=== PATIENT | male | born 1950 | race Caucasian/White ===

== ENCOUNTER 2019-01-03 14:36 | Inpatient (IN) | payer MEDICARE, OTHER ==
[~2019-01-03] VITALS: Ht 172.7 cm; Wt 67.3 kg
--- OUTSIDE RECORDS SUMMARY | 2019-01-03 14:39 | XMS REPORT | Clinical Summary ---
Author Author TETO Cardiff AviationCass[facility] Center[facility] Organization [facility] Address Unknown Phone Unavailable Care Team Providers Care Technician Helper Instrument Name Role Phone Pcp, No PCP Unavailable Allergies No Known Allergies Medications End Date Status Medication Sig Dispensed Refills Start Date Active sodium chloride 0.9%, NS, Inject 5 mLs 5 mL 0 injection intravenously 8 every 8 (eight) hours. 10/13/2019 Active aspirin 81 MG EC tablet Take 1 tablet 30 tablet 11 (81 mg total) 8 by mouth daily. 10/12/2019 Active senna (SENOKOT) 8.6 mg Take 1 tablet 30 tablet 30 tablet (8.6 mg 8 total) by mouth nightly. Active pantoprazole (PROTONIX) Take 1 tablet 30 tablet 0 40 MG tablet (40 mg total) 8 by mouth daily. 10/13/2019 Active multivitamin (THERAGRAN) Take 1 tablet 30 tablet 2 tablet by mouth 8 daily. Active apixaban (ELIQUIS) 5 mg Take 1 tablet 60 tablet 2 Tab tablet (5 mg total) 8 by mouth 2 (two) times daily. 10/13/2019 Active thiamine (VITAMIN B-1) 50 Take 1 tablet 30 tablet 2 MG tablet (50 mg total) 8 by mouth daily. 10/13/2019 Active furosemide (LASIX) 40 MG Take 1 tablet 30 tablet 2 tablet (40 mg total) 8 by mouth daily. 10/13/2019 Active digoxin (LANOXIN) 0.25 MG Take 1 tablet 30 tablet 2 tablet (250 mcg 8 total) by mouth daily. 10/12/2019 Active metoprolol (TOPROL-XL) 25 Take 0.5 15 tablet 2 MG 24 hr tablet tablets (12.5 8 mg total) by mouth nightly. 10/22/2018 docusate sodium (COLACE) Take 1 10 capsule 0 100 MG capsule capsule (100 8 mg total) by mouth 2 (two) times daily for 10 days. 10/16/2018 polyethylene glycol Take 17 g by 14 each 0 (GLYCOLAX) 17 gram packet mouth daily 8 for 3 days. 10/19/2018 benzonatate (TESSALON) Take 1 20 capsule 0 100 MG capsule capsule (100 8 mg total) by mouth 3 (three) times daily as needed for Cough for up to 7 days. Active Problems Problem Noted Date Coronary artery disease 10/02/2018 Acute on chronic systolic heart failure 10/02/2018 Chronic hepatitis C without hepatic coma 10/02/2018 Other cirrhosis of liver 10/02/2018 Encounters Care Team Description Date Type Specialty Ronak Flores AA 10/07/2018 Anesthesia Event Saranya Barbour MD IABP INSERTION MCR - IP PROC ONLY 10/05/2018 Surgery Ana Pearce, RN 10/05/2018 Documentation Transplant 10/04/2018 Orders Only General Internal Medicine Castro Kessler MD Ancy, MD Lou Santamaria Alireza, MD Zindani, Shireen, MD Shiekh Sroujieh, MD Abelino Braxton, MD Adarsh Neville, MD Marcelino Bennett, MD Honorio Portillo, Vincent Roldan MD Acute on chronic systolic heart failure (HCC); Chronic hepatitis C without hepatic coma (HCC); Coronary artery disease involving [place] coronary artery of [place] heart without angina pectoris; Other cirrhosis of liver (HCC); Typical atrial flutter (HCC); NSTEMI (non-ST elevated myocardial infarction) (HCC); VSD (ventricular septal defect); Abnormal liver enzymes; Atrial flutter with rapid ventricular response (HCC); Acute systolic congestive heart failure (HCC); Pleural effusion; History of alcohol use disorder; Immunity status testing; Screening for malignant neoplasm; Atrial flutter, unspecified type (HCC); Cardiogenic shock (HCC); Ischemic cardiomyopathy; PAD (peripheral artery disease) (HCC); Sinus tachycardia; Uncomplicated alcohol dependence (HCC); Lung nodule 10/02/2018 Hospital Cardiology - Encounter 10/12/2018 10/02/2018 Travel after 01/02/2018 Family History Medical History Relation Name Comments Heart disease Brother Heart disease Mother Heart disease Sister Relation Name Status Comments Brother Mother Sister Social History Date Tobacco Use Types Packs/Day Years Used Current Every Day Smoker 2 50 Smokeless Tobacco: Never Used Alcohol Use Drinks/Week oz/Week Comments Yes 6 Cans of 3.6 last drink 09/27/18 beer Sex Assigned at Date Recorded Not on file Industry Job Start Date Occupation Not on file Not on file Not on file Travel End Travel History Travel Start No recent travel history available. Last Filed Vital Signs Time Taken Vital Sign Reading 10/12/2018 11:02 AM BILLING AND INSURANCE COORDINATOR Blood Pressure 128/74 10/12/2018 11:02 AM BILLING AND INSURANCE COORDINATOR Pulse 128 10/12/2018 11:02 AM BILLING AND INSURANCE COORDINATOR Temperature 36.4 C (97.6 F) 10/12/2018 11:02 AM BILLING AND INSURANCE COORDINATOR Respiratory Rate 20 10/12/2018 11:02 AM BILLING AND INSURANCE COORDINATOR Oxygen Saturation 98% - Inhaled Oxygen - Concentration 10/12/2018 5:00 AM BILLING AND INSURANCE COORDINATOR Weight 60.7 kg (133 lb 12.8 oz) 10/02/2018 1:00 AM BILLING AND INSURANCE COORDINATOR Height 172.7 cm (5' 7.99") 10/12/2018 5:00 AM BILLING AND INSURANCE COORDINATOR Body Mass Index 20.35 Plan of Treatment Not on file Procedures Comments Procedure Name Priority Date/Time Associated Diagnosis REPORT OF PROCEDURE - 10/28/2018 ENDOSCOPY SCAN 3:50 PM BILLING AND INSURANCE COORDINATOR RHYTHM STRIP - SCAN 10/28/2018 3:50 PM BILLING AND INSURANCE COORDINATOR CARDIAC CATH REPORT - 10/28/2018 SCAN 3:50 PM BILLING AND INSURANCE COORDINATOR TRANSFUSION SERVICE 10/13/2018 REPORT - SCAN 6:00 PM BILLING AND INSURANCE COORDINATOR TYPE AND SCREEN, Routine 10/12/2018 AUTOMATED 5:37 AM BILLING AND INSURANCE COORDINATOR CBC (HEMOGRAM ONLY) Routine 10/12/2018 5:37 AM BILLING AND INSURANCE COORDINATOR ALPHA FETOPROTEIN (AFP), Routine 10/12/2018 TUMOR MARKER 5:37 AM BILLING AND INSURANCE COORDINATOR MR ABDOMEN WITH/WITHOUT Routine 10/12/2018 IV CONTRAST 4:20 AM BILLING AND INSURANCE COORDINATOR CBC (HEMOGRAM ONLY) Routine 10/11/2018 4:25 AM BILLING AND INSURANCE COORDINATOR PTH-RELATED PEPTIDE Routine 10/11/2018 4:25 AM BILLING AND INSURANCE COORDINATOR B-TYPE NATRIURETIC FACTOR Routine 10/11/2018 (BNP) 4:25 AM BILLING AND INSURANCE COORDINATOR HEPATIC FUNCTION PANEL Routine 10/10/2018 4:54 AM BILLING AND INSURANCE COORDINATOR MAGNESIUM Routine 10/10/2018 4:54 AM BILLING AND INSURANCE COORDINATOR BASIC METABOLIC PANEL (7) Routine 10/10/2018 4:54 AM BILLING AND INSURANCE COORDINATOR CBC (HEMOGRAM ONLY) Routine 10/10/2018 4:54 AM BILLING AND INSURANCE COORDINATOR DIGOXIN LEVEL Routine 10/10/2018 4:54 AM BILLING AND INSURANCE COORDINATOR XR CHEST 1 VIEW Routine 10/09/2018 PORTABLE/BEDSIDE 6:23 AM BILLING AND INSURANCE COORDINATOR MAGNESIUM Routine 10/09/2018 3:39 AM BILLING AND INSURANCE COORDINATOR BASIC METABOLIC PANEL (7) Routine 10/09/2018 3:39 AM BILLING AND INSURANCE COORDINATOR CBC (HEMOGRAM ONLY) Routine 10/09/2018 3:39 AM BILLING AND INSURANCE COORDINATOR ECG 12-LEAD Routine 10/09/2018 12:51 AM BILLING AND INSURANCE COORDINATOR ECG 12-LEAD Routine 10/09/2018 12:51 AM BILLING AND INSURANCE COORDINATOR Procedure Note - Interface, External Ris In - 10/09/2018 12:58 AM BILLING AND INSURANCE COORDINATOR Ventricula r Rate 119 BPM Atrial Rate 119 BPM P-R Interval 160 ms QRS Duration 122 ms Q-T Interval 372 ms QTC Calculatio n(Bazett) 523 ms P [place] 47 degrees R [place] 66 degrees T [place] 31 degrees Sinus tachycardi a Possible Left atrial enlargemen t Left ventricula r hypertroph y with QRS widening and repolariza tion abnormalit y Abnormal ECG When compared with ECG of 8 00:25, ST less depressed in Inferior leads ST less depressed in Anterior leads T wave inversion no longer evident in Lateral leads POCT-GLUCOSE METER Routine 10/09/2018 12:31 AM BILLING AND INSURANCE COORDINATOR ECG 12-LEAD Routine 10/09/2018 12:25 AM BILLING AND INSURANCE COORDINATOR Procedure Note - Interface, External Ris In - 10/09/2018 12:58 AM BILLING AND INSURANCE COORDINATOR Ventricula r Rate 148 BPM Atrial Rate 148 BPM P-R Interval 198 ms QRS Duration 94 ms Q-T Interval 298 ms QTC Calculatio n(Bazett) 467 ms P [place] 56 degrees R [place] 54 degrees T [place] 87 degrees Sinus tachycardi a Left atrial enlargemen t Indetermin ate axis Marked ST abnormalit y, possible inferior subendocar dial injury Marked ST abnormalit y, possible anterolate ral subendocar dial injury Abnormal ECG When compared with ECG of 8 00:23, No significan t change was found ECG 12-LEAD Routine 10/09/2018 12:23 AM BILLING AND INSURANCE COORDINATOR Procedure Note - Interface, External Ris In - 10/09/2018 12:57 AM BILLING AND INSURANCE COORDINATOR Ventricula r Rate 151 BPM Atrial Rate 151 BPM P-R Interval 190 ms QRS Duration 94 ms Q-T Interval 292 ms QTC Calculatio n(Bazett) 462 ms P [place] 55 degrees R [place] -17 degrees T [place] 98 degrees Sinus tachycardi a Indetermin ate axis Marked ST abnormalit y, possible inferior subendocar dial injury Marked ST abnormalit y, possible anterolate ral subendocar dial injury Abnormal ECG When compared with ECG of 8 00:45, ST more depressed in Anterior leads T wave inversion now evident in Inferior leads BLOOD GAS, ARTERIAL Routine 10/08/2018 5:45 AM BILLING AND INSURANCE COORDINATOR CBC (HEMOGRAM ONLY) Routine 10/08/2018 5:43 AM BILLING AND INSURANCE COORDINATOR BLOOD GAS, VENOUS Routine 10/08/2018 5:43 AM BILLING AND INSURANCE COORDINATOR OXYGEN SATURATION, Routine 10/08/2018 MEASURED 5:43 AM BILLING AND INSURANCE COORDINATOR APTT Routine 10/08/2018 5:43 AM BILLING AND INSURANCE COORDINATOR XR CHEST 1 VIEW Routine 10/08/2018 PORTABLE/BEDSIDE 4:26 AM BILLING AND INSURANCE COORDINATOR MAGNESIUM Routine 10/07/2018 4:57 PM BILLING AND INSURANCE COORDINATOR POTASSIUM Routine 10/07/2018 4:57 PM BILLING AND INSURANCE COORDINATOR APTT Routine 10/07/2018 2:04 PM BILLING AND INSURANCE COORDINATOR CT/CTA AAA AND RUNOFF DIOGENES 10/07/2018 1:37 PM BILLING AND INSURANCE COORDINATOR CT/CTA CHEST Routine 10/07/2018 1:37 PM BILLING AND INSURANCE COORDINATOR APTT Routine 10/07/2018 6:45 AM BILLING AND INSURANCE COORDINATOR US ABDOMEN COMPLETE Routine 10/07/2018 6:30 AM BILLING AND INSURANCE COORDINATOR CBC (HEMOGRAM ONLY) Routine 10/07/2018 5:05 AM BILLING AND INSURANCE COORDINATOR PROTHROMBIN TIME/INR Routine 10/07/2018 5:05 AM BILLING AND INSURANCE COORDINATOR BASIC METABOLIC PANEL (7) Routine 10/07/2018 5:05 AM BILLING AND INSURANCE COORDINATOR BLOOD GAS, ARTERIAL Routine 10/07/2018 5:05 AM BILLING AND INSURANCE COORDINATOR MAGNESIUM Routine 10/07/2018 5:05 AM BILLING AND INSURANCE COORDINATOR BLOOD GAS, VENOUS Routine 10/07/2018 5:01 AM BILLING AND INSURANCE COORDINATOR OXYGEN SATURATION, Routine 10/07/2018 MEASURED 5:01 AM BILLING AND INSURANCE COORDINATOR XR CHEST 1 VIEW Routine 10/07/2018 PORTABLE/BEDSIDE 4:53 AM BILLING AND INSURANCE COORDINATOR OXYGEN SATURATION, STAT 10/07/2018 MEASURED 1:12 AM BILLING AND INSURANCE COORDINATOR LACTIC ACID, ARTERIAL STAT 10/07/2018 1:12 AM BILLING AND INSURANCE COORDINATOR TROPONIN I STAT 10/07/2018 1:12 AM BILLING AND INSURANCE COORDINATOR ECG 12-LEAD Routine 10/07/2018 12:45 AM BILLING AND INSURANCE COORDINATOR ECG 12-LEAD Routine 10/07/2018 12:45 AM BILLING AND INSURANCE COORDINATOR Procedure Note - Interface, External Ris In - 10/07/2018 12:50 AM BILLING AND INSURANCE COORDINATOR Ventricula r Rate 132 BPM Atrial Rate 132 BPM P-R Interval 152 ms QRS Duration 92 ms Q-T Interval 334 ms QTC Calculatio n(Bazett) 494 ms P [place] 62 degrees R [place] -35 degrees T [place] 243 degrees Sinus tachycardi a Possible Left atrial enlargemen t Left axis deviation Marked ST abnormalit y, possible inferior subendocar dial injury Marked ST abnormalit y, possible anterolate ral subendocar dial injury Abnormal ECG When compared with ECG of 8 17:30, T wave inversion more evident in Lateral leads APTT Routine 10/06/2018 11:59 PM BILLING AND INSURANCE COORDINATOR PT/APTT STAT 10/06/2018 5:11 PM BILLING AND INSURANCE COORDINATOR T4, FREE Routine 10/06/2018 10:17 AM BILLING AND INSURANCE COORDINATOR TSH/FREE T4 IF INDICATED Routine 10/06/2018 10:17 AM BILLING AND INSURANCE COORDINATOR APTT Routine 10/06/2018 10:17 AM BILLING AND INSURANCE COORDINATOR PLATELET COUNT Routine 10/06/2018 10:17 AM BILLING AND INSURANCE COORDINATOR BLOOD GAS, VENOUS Routine 10/06/2018 10:00 AM BILLING AND INSURANCE COORDINATOR BLOOD GAS, ARTERIAL Routine 10/06/2018 10:00 AM BILLING AND INSURANCE COORDINATOR CBC W/PLT COUNT & AUTO Routine 10/06/2018 DIFFERENTIAL 5:38 AM BILLING AND INSURANCE COORDINATOR MAGNESIUM Routine 10/06/2018 5:38 AM BILLING AND INSURANCE COORDINATOR CBC W/PLT COUNT & AUTO Routine 10/06/2018 DIFFERENTIAL 5:38 AM BILLING AND INSURANCE COORDINATOR BASIC METABOLIC PANEL (7) Routine 10/06/2018 5:38 AM BILLING AND INSURANCE COORDINATOR OXYGEN SATURATION, Routine 10/06/2018 MEASURED 5:38 AM BILLING AND INSURANCE COORDINATOR XR CHEST 1 VIEW STAT 10/05/2018 PORTABLE/BEDSIDE 10:52 PM BILLING AND INSURANCE COORDINATOR XR CHEST 1 VIEW STAT 10/05/2018 PORTABLE/BEDSIDE 9:15 PM BILLING AND INSURANCE COORDINATOR IABP INSERTION MCR - IP 10/05/2018 Cardiogenic shock (HCC) PROC ONLY 4:05 PM BILLING AND INSURANCE COORDINATOR BLOOD GAS, ARTERIAL Routine 10/05/2018 1:46 PM BILLING AND INSURANCE COORDINATOR HIV-1 ANTIGEN WITH Routine 10/05/2018 HIV-1/2 ANTIBODY 1:46 PM BILLING AND INSURANCE COORDINATOR HEMOGLOBIN-STAT LAB Routine 10/05/2018 1:40 PM BILLING AND INSURANCE COORDINATOR OXYGEN SATURATION, Routine 10/05/2018 MEASURED 1:40 PM BILLING AND INSURANCE COORDINATOR XR CHEST 1 VIEW DIOGENES 10/05/2018 PORTABLE/BEDSIDE 1:04 PM BILLING AND INSURANCE COORDINATOR BLOOD GAS, ARTERIAL Routine 10/05/2018 12:54 PM BILLING AND INSURANCE COORDINATOR POTASSIUM Routine 10/05/2018 11:21 AM BILLING AND INSURANCE COORDINATOR MAGNESIUM Routine 10/05/2018 11:21 AM BILLING AND INSURANCE COORDINATOR APTT Routine 10/05/2018 11:21 AM BILLING AND INSURANCE COORDINATOR TOXICOLOGY SCREEN, SERUM Routine 10/05/2018 11:21 AM BILLING AND INSURANCE COORDINATOR APTT Routine 10/05/2018 4:59 AM BILLING AND INSURANCE COORDINATOR COMPREHENSIVE METABOLIC Routine 10/05/2018 PANEL 4:59 AM BILLING AND INSURANCE COORDINATOR CBC (HEMOGRAM ONLY) Routine 10/05/2018 4:59 AM BILLING AND INSURANCE COORDINATOR APTT Routine 10/04/2018 8:24 PM BILLING AND INSURANCE COORDINATOR ECG 12-LEAD Routine 10/04/2018 5:30 PM BILLING AND INSURANCE COORDINATOR Procedure Note - Interface, External Ris In - 10/04/2018 5:35 PM BILLING AND INSURANCE COORDINATOR Ventricula r Rate 120 BPM Atrial Rate 120 BPM P-R Interval 152 ms QRS Duration 92 ms Q-T Interval 332 ms QTC Calculatio n(Bazett) 469 ms P [place] 71 degrees R [place] -17 degrees T [place] 79 degrees Sinus tachycardi a Possible Left atrial enlargemen t ST depression , consider subendocar dial injury or digitalis effect Abnormal ECG When compared with ECG of 8 07:04, No significan t change was found ECG 12-LEAD Routine 10/04/2018 5:30 PM BILLING AND INSURANCE COORDINATOR ECHOCARDIOGRAM REPORT - 10/04/2018 SCAN 5:20 PM BILLING AND INSURANCE COORDINATOR 2D ECHO W/ DOPPLER STAT 10/04/2018 (CW/PW/COLOR) 3:25 PM BILLING AND INSURANCE COORDINATOR MAGNESIUM Routine 10/04/2018 1:58 PM BILLING AND INSURANCE COORDINATOR POTASSIUM Routine 10/04/2018 1:58 PM BILLING AND INSURANCE COORDINATOR APTT Routine 10/04/2018 1:58 PM BILLING AND INSURANCE COORDINATOR MR CARDIAC WITHOUT & WITH DIOGENES 10/04/2018 CONTRAST 1:26 PM BILLING AND INSURANCE COORDINATOR APTT Routine 10/04/2018 5:02 AM BILLING AND INSURANCE COORDINATOR HEPATITIS C PCR, Routine 10/04/2018 QUANTITATIVE 5:02 AM BILLING AND INSURANCE COORDINATOR HEPATITIS C GENOTYPE Routine 10/04/2018 5:02 AM BILLING AND INSURANCE COORDINATOR [id number], Routine 10/04/2018 SERUM 5:02 AM BILLING AND INSURANCE COORDINATOR ACTIN (SMOOTH MUSCLE) Routine 10/04/2018 ANTIBODY, IGG 5:02 AM BILLING AND INSURANCE COORDINATOR ANTI-MITOCHONDRIAL AB, Routine 10/04/2018 REFLEX TO TITER 5:02 AM BILLING AND INSURANCE COORDINATOR ANTI-NUCLEAR ANTIBODY Routine 10/04/2018 (AURY) 5:02 AM BILLING AND INSURANCE COORDINATOR CBC (HEMOGRAM ONLY) Routine 10/04/2018 5:02 AM BILLING AND INSURANCE COORDINATOR PROTHROMBIN TIME/INR Routine 10/04/2018 5:02 AM BILLING AND INSURANCE COORDINATOR HEPATIC FUNCTION PANEL Routine 10/04/2018 5:02 AM BILLING AND INSURANCE COORDINATOR MAGNESIUM Routine 10/04/2018 5:02 AM BILLING AND INSURANCE COORDINATOR BASIC METABOLIC PANEL (7) Routine 10/04/2018 5:02 AM BILLING AND INSURANCE COORDINATOR APTT Routine 10/04/2018 12:09 AM BILLING AND INSURANCE COORDINATOR PT/APTT Routine 10/03/2018 5:51 PM BILLING AND INSURANCE COORDINATOR POCT-GLUCOSE METER Routine 10/03/2018 4:59 PM BILLING AND INSURANCE COORDINATOR HEPATITIS B SURFACE Routine 10/03/2018 ANTIBODY 1:06 PM BILLING AND INSURANCE COORDINATOR HEPATITIS B CORE Routine 10/03/2018 ANTIBODY, TOTAL 1:06 PM BILLING AND INSURANCE COORDINATOR HEPATITIS A ANTIBODY, IGG Routine 10/03/2018 1:06 PM BILLING AND INSURANCE COORDINATOR GAMMA GLUTAMYL Routine 10/03/2018 TRANSFERASE (GGT) 1:06 PM BILLING AND INSURANCE COORDINATOR IMMUNOGLOBULIN G (IGG) Routine 10/03/2018 1:06 PM BILLING AND INSURANCE COORDINATOR PT/APTT Routine 10/03/2018 11:09 AM BILLING AND INSURANCE COORDINATOR PROCALCITONIN Routine 10/03/2018 6:43 AM BILLING AND INSURANCE COORDINATOR IMMUNOFIXATION AP Routine 10/03/2018 ELECTROPHORESIS (ARNOLD) 3:23 AM BILLING AND INSURANCE COORDINATOR APTT Routine 10/03/2018 3:23 AM BILLING AND INSURANCE COORDINATOR B-TYPE NATRIURETIC FACTOR Routine 10/03/2018 (BNP) 3:23 AM BILLING AND INSURANCE COORDINATOR HEMOGLOBIN A1C Routine 10/03/2018 3:23 AM BILLING AND INSURANCE COORDINATOR LIPID PANEL Routine 10/03/2018 3:23 AM BILLING AND INSURANCE COORDINATOR VITAMIN B12 AND FOLATE Routine 10/03/2018 3:23 AM BILLING AND INSURANCE COORDINATOR PROTEIN ELECTROPHORESIS, AP Routine 10/03/2018 SERUM 3:23 AM BILLING AND INSURANCE COORDINATOR IRON, TIBC, % SAT. Routine 10/03/2018 (WITHOUT FERRITIN) 3:23 AM BILLING AND INSURANCE COORDINATOR FERRITIN Routine 10/03/2018 3:23 AM BILLING AND INSURANCE COORDINATOR CBC (HEMOGRAM ONLY) Routine 10/03/2018 3:23 AM BILLING AND INSURANCE COORDINATOR PROTHROMBIN TIME/INR Routine 10/03/2018 3:23 AM BILLING AND INSURANCE COORDINATOR HEPATIC FUNCTION PANEL Routine 10/03/2018 3:23 AM BILLING AND INSURANCE COORDINATOR MAGNESIUM Routine 10/03/2018 3:23 AM BILLING AND INSURANCE COORDINATOR BASIC METABOLIC PANEL (7) Routine 10/03/2018 3:23 AM BILLING AND INSURANCE COORDINATOR T4, FREE Routine 10/02/2018 10:51 PM BILLING AND INSURANCE COORDINATOR TSH/FREE T4 IF INDICATED Routine 10/02/2018 10:51 PM BILLING AND INSURANCE COORDINATOR PHOSPHORUS Routine 10/02/2018 10:51 PM BILLING AND INSURANCE COORDINATOR CREATINE KINASE (CK) Routine 10/02/2018 10:51 PM BILLING AND INSURANCE COORDINATOR APTT Routine 10/02/2018 10:51 PM BILLING AND INSURANCE COORDINATOR LACTIC ACID, VENOUS Routine 10/02/2018 9:28 PM BILLING AND INSURANCE COORDINATOR POCT-LACTIC ACID, VENOUS Routine 10/02/2018 8:06 PM BILLING AND INSURANCE COORDINATOR TROPONIN I Routine 10/02/2018 8:05 PM BILLING AND INSURANCE COORDINATOR ECG 12-LEAD Routine 10/02/2018 7:04 AM BILLING AND INSURANCE COORDINATOR XR CHEST 1 VIEW Routine 10/02/2018 PORTABLE/BEDSIDE 5:29 AM BILLING AND INSURANCE COORDINATOR HEPATITIS PANEL, ACUTE Routine 10/02/2018 5:02 AM BILLING AND INSURANCE COORDINATOR TROPONIN I Routine 10/02/2018 5:02 AM BILLING AND INSURANCE COORDINATOR CBC (HEMOGRAM ONLY) Routine 10/02/2018 5:02 AM BILLING AND INSURANCE COORDINATOR PROTHROMBIN TIME/INR Routine 10/02/2018 5:02 AM BILLING AND INSURANCE COORDINATOR HEPATIC FUNCTION PANEL Routine 10/02/2018 5:02 AM BILLING AND INSURANCE COORDINATOR MAGNESIUM Routine 10/02/2018 5:02 AM BILLING AND INSURANCE COORDINATOR BASIC METABOLIC PANEL (7) Routine 10/02/2018 5:02 AM BILLING AND INSURANCE COORDINATOR after 01/02/2018 Results * EKG-SCANNED (10/28/2018 3:50 PM BILLING AND INSURANCE COORDINATOR) Narrative Performed At * RHYTHM STRIP - SCAN (10/28/2018 3:50 PM BILLING AND INSURANCE COORDINATOR) Narrative Performed At * CARDIAC CATH REPORT - SCAN (10/28/2018 3:50 PM BILLING AND INSURANCE COORDINATOR) Narrative Performed At * TRANSFUSION SERVICE REPORT - SCAN (10/13/2018 6:00 PM BILLING AND INSURANCE COORDINATOR) Narrative Performed At * Type and screen, automated (10/12/2018 5:37 AM BILLING AND INSURANCE COORDINATOR) ABO/RH AUTOMATED (BEAKER) A POSITIVE [facility] Ab Scrn NEGATIVE [facility] Specimen Blood - Arm, Right Performing Organization Address [facility] Phone Number [address] * Alpha fetoprotein (AFP), tumor marker (10/12/2018 5:37 AM BILLING AND INSURANCE COORDINATOR) Alpha-Fetoprotein 4.3 <10.0 ng/mL [facility] Specimen Blood - Arm, Right Performing Organization Address [facility] Phone Number [phone] [place] [address] * CBC (hemogram only) (10/12/2018 5:37 AM BILLING AND INSURANCE COORDINATOR) Only the most recent of 10 results within the time period is included. WBC 5.9 3.5 - 10.5 K/L [facility] RBC 3.68 (L) 4.63 - 6.08 M/L [facility] Hemoglobin 12.5 (L) 13.7 - 17.5 GM/DL [facility] Hematocrit 38.4 (L) 40.1 - 51.0 % [facility] MCV 104.3 (H) 79.0 - 92.2 fL [facility] MCH 34.0 (H) 25.7 - 32.2 pg [facility] MCHC 32.6 32.3 - 36.5 GM/DL [facility] RDW 13.4 11.6 - 14.4 % [facility] Platelets 181 150 - 450 K/CU MM [facility] MPV 12.3 9.4 - 12.4 fL [facility] nRBC 0 0 - 0 /100 WBC [facility] Specimen Blood - Arm, Right Performing Organization Address City/State/Zipcode Phone Number [facility] [address] [place] [address] [facility] * MR abdomen without & with IV contrast (10/12/2018 4:20 AM BILLING AND INSURANCE COORDINATOR) Narrative Performed At FINAL REPORT [facility] MRI of the abdomen. CLINICAL HISTORY: Neoplasm: abdomen, other primary, suspected Evaluate Hepatic parenchyma - cirrhosis and for HCC. COMPARISON STUDY: CT scan dated October 07, 2018 and ultrasound dated October 07 2018. Technique: Multiplanar, multisequence imaging of the abdomen was acquired both pre and post administration of intravenous gadolinium in a dynamic fashion. No oral contrast was administered. FINDINGS: Bilateral trace pleural effusions are seen. The liver demonstrates a noncirrhotic morphology. Post administration of intravenous gadolinium in a dynamic fashion, no suspicious enhancing masses are seen. The main portal vein is widely patent measuring 1.1 cm. A tiny filling defect is seen in the gallbladder, either a stone or polyp. The spleen, pancreas, kidneys and adrenal glands are unremarkable. There are no dilated loops of bowel seen to suggest obstruction. No ascites is seen. The aorta is normal in caliber. No suspicious adenopathy is seen. The visualized osseous structures demonstrate heterogeneous marrow signal, particularly in the pelvis which could represent red marrow conversion. IMPRESSION: 1. No suspicious hepatic masses. 2. Tiny gallbladder polyp or stone. 3. Small pleural effusions. Signed: Nguyễn López MD Report Verified Date/Time:10/12/2018 08:52:06 Reading Location: [facility] [id number] Ortho Consult Reading Room Procedure Note Interface, External Ris In - 10/12/2018 8:54 AM BILLING AND INSURANCE COORDINATOR FINAL REPORT MRI of the abdomen. CLINICAL HISTORY: Neoplasm: abdomen, other primary, suspected Evaluate Hepatic parenchyma - cirrhosis and for HCC. COMPARISON STUDY: CT scan dated October 07, 2018 and ultrasound dated October 07 2018. Technique: Multiplanar, multisequence imaging of the abdomen was acquired both pre and post administration of intravenous gadolinium in a dynamic fashion. No oral contrast was administered. FINDINGS: Bilateral trace pleural effusions are seen. The liver demonstrates a noncirrhotic morphology. Post administration of intravenous gadolinium in a dynamic fashion, no suspicious enhancing masses are seen. The main portal vein is widely patent measuring 1.1 cm. A tiny filling defect is seen in the gallbladder, either a stone or polyp. The spleen, pancreas, kidneys and adrenal glands are unremarkable. There are no dilated loops of bowel seen to suggest obstruction. No ascites is seen. The aorta is normal in caliber. No suspicious adenopathy is seen. The visualized osseous structures demonstrate heterogeneous marrow signal, particularly in the pelvis which could represent red marrow conversion. IMPRESSION: 1. No suspicious hepatic masses. 2. Tiny gallbladder polyp or stone. 3. Small pleural effusions. Signed: Nguyễn López MD Report Verified Date/Time: 10/12/2018 08:52:06 Reading Location: [facility] [id number] Ortho Consult Reading Room Performing Organization Address City/State/Zipcode Phone Number GE RIS * PTH-related peptide (10/11/2018 4:25 AM BILLING AND INSURANCE COORDINATOR) PTH-Related Protein 12 (L) 14 - 27 pg/mL [facility] Comment: INCORPORATED This is a C-terminal PTH-RP assay. PTH-RP is useful in the differential diagnosis of hypercalcemia and levels may be elevated in patients with tumor-associated hypercalcemia. Elevated results may also be observed in patients with renal disease. This test was developed and its analytical performance characteristics have been determined by [employer] [facility]. It has not been cleared or approved by FDA. This assay has been validated pursuant to the CLIA regulations and is used for clinical purposes. Specimen Blood - Arm, Right Narrative Performed At Performing Lab [facility] [id number] [place] [address] Yg Levine MD, PhD, KIRA Performing Organization Address City/[facility] Phone Number [facility], [address] [place] [id number] * B-type Natriuretic Factor (BNP) (10/11/2018 4:25 AM BILLING AND INSURANCE COORDINATOR) Only the most recent of 2 results within the time period is included. BNP 2,855 (H) 0 - 100 pg/mL [facility] Specimen Blood - Arm, Right Performing Organization Address [facility] Phone Number [address] * Magnesium (10/10/2018 4:54 AM BILLING AND INSURANCE COORDINATOR) Only the most recent of 10 results within the time period is included. Magnesium 1.6 1.6 - 2.6 mg/dL [facility] Specimen Blood Performing Organization Address [facility] Phone Number [address] * Digoxin level (10/10/2018 4:54 AM BILLING AND INSURANCE COORDINATOR) Digoxin Lvl <0.3 (L) 0.8 - 2.0 ng/mL [facility] Specimen Blood Performing Organization Address [facility] Phone Number [address] * Hepatic function panel (10/10/2018 4:54 AM BILLING AND INSURANCE COORDINATOR) Only the most recent of 4 results within the time period is included. Protein, Total 7.5 6.0 - 8.3 gm/dL [facility] Albumin 3.4 (L) 3.5 - 5.0 g/dL [facility] Total Bilirubin 0.8 0.2 - 1.2 mg/dL [facility] Bilirubin, Direct 0.4 0.1 - 0.5 mg/dL [facility] Alkaline Phosphatase 55 40 - 150 U/L [facility] AST 71 (H) 5 - 34 U/L [facility] ALT 128 (H) 6 - 55 U/L [facility] Specimen Blood Performing Organization Address City/[facility]/Zipcode Phone Number [facility] [address] [place] [address] [facility] * Basic Metabolic Panel (10/10/2018 4:54 AM BILLING AND INSURANCE COORDINATOR) Only the most recent of 7 results within the time period is included. Sodium 130 (L) 136 - 145 meq/L [facility] Potassium 3.8 3.5 - 5.1 meq/L [facility] Chloride 101 98 - 107 meq/L [facility] CO2 22 22 - 29 meq/L [facility] BUN 17 7 - 21 mg/dL [facility] Creatinine 0.72 0.57 - 1.25 mg/dL [facility] Glucose 107 (H) 70 - 105 mg/dL [facility] Calcium 9.1 8.4 - 10.2 mg/dL [facility] EGFR 110Comment: ESTIMATED GFR IS mL/min/1.73 sq m [facility] NOT ACCURATE CREATININE [facility] CLEARANCE IN PREDICTING GLOMERULAR FILTRATION RATE. ESTIMATED GFR IS NOT APPLICABLE FOR DIALYSIS PATIENTS. Specimen Blood Performing Organization Address City/State/[facility] Phone Number [facility] [address] [place] [address] [facility] * XR chest 1 view portable / bedside (10/09/2018 6:23 AM BILLING AND INSURANCE COORDINATOR) Only the most recent of 7 results within the time period is included. Narrative Performed At FINAL REPORT [facility] Chest one view AP 10/09/2018 7:31 AM CLINICAL INDICATION: HF COMPARISON: 10/08/2018 IMPRESSION: Cardiomediastinal contours are stable. There is moderately advanced pulmonary edema, worse when compared to the prior examination. There is a suspected small volume left pleural effusion with adjacent basilar atelectasis. Signed: Richard Parker MD Report Verified Date/Time:10/09/2018 07:32:13 Reading Location: [address] Neuro Reading Room Procedure Note Interface, External Ris In - 10/09/2018 7:34 AM BILLING AND INSURANCE COORDINATOR FINAL REPORT Chest one view AP 10/09/2018 7:31 AM CLINICAL INDICATION: HF COMPARISON: 10/08/2018 IMPRESSION: Cardiomediastinal contours are stable. There is moderately advanced pulmonary edema, worse when compared to the prior examination. There is a suspected small volume left pleural effusion with adjacent basilar atelectasis. Signed: Richard Parker MD Report Verified Date/Time: 10/09/2018 07:32:13 Reading Location: [address] Neuro Reading Room Performing Organization Address City/State/Zipcode Phone Number GE RIS * ECG 12 lead (10/09/2018 12:51 AM BILLING AND INSURANCE COORDINATOR) Only the most recent of 4 results within the time period is included. Narrative Performed At Ventricular Rate 119 BPM GE MUSE Atrial Rate 119 BPM P-R Interval 160 ms QRS Duration 122 ms Q-T Interval 372 ms QTC Calculation(Bazett) 523 ms P [place] 47 degrees R [place] 66 degrees T [place] 31 degrees Sinus tachycardia Possible Left atrial enlargement Left ventricular hypertrophy with QRS widening and repolarization abnormality Marked ST depression inferolateral leads + ST elevation in aVR consider subendocardial ischemia Prolonged QT Abnormal ECG When compared with ECG of 09-OCT-2018 00:25, QT has lengthened Confirmed by MD KARMEN, RAEGAN ([id number]) on 10/09/2018 7:28:27 AM Procedure Note Interface, External Ris In - 10/09/2018 7:28 AM BILLING AND INSURANCE COORDINATOR Ventricular Rate 119 BPM Atrial Rate 119 BPM P-R Interval 160 ms QRS Duration 122 ms Q-T Interval 372 ms QTC Calculation(Bazett) 523 ms P [place] 47 degrees R [place] 66 degrees T [place] 31 degrees Sinus tachycardia Possible Left atrial enlargement Left ventricular hypertrophy with QRS widening and repolarization abnormality Marked ST depression inferolateral leads + ST elevation in aVR consider subendocardial ischemia Prolonged QT Abnormal ECG When compared with ECG of 09-OCT-2018 00:25, QT has lengthened Confirmed by MD KARMEN, RAEGAN ([id number]) on 10/09/2018 7:28:27 AM Performing Organization Address City/[facility] Phone Number GE [facility] * POC-Glucose meter (10/09/2018 12:31 AM BILLING AND INSURANCE COORDINATOR) Only the most recent of 2 results within the time period is included. POC-Glucose Meter 138 (H)Comment: TESTED AT 70 - 110 mg/dL [address] [address] Specimen Blood Performing Organization Address [facility] Phone Number [phone] [place] [address] [facility] * Blood gas, arterial (10/08/2018 5:45 AM BILLING AND INSURANCE COORDINATOR) Only the most recent of 5 results within the time period is included. pH, Arterial 7.49 (H) 7.35 - 7.45 [facility] pCO2, Arterial 35 35 - 45 mmHg [facility] pO2, Arterial 163 (H) 80 - 90 mmHg [facility] O2 Sat, Arterial 99.2 (H) 96.0 - 97.0 % [facility] HCO3, Arterial 26 21 - 29 mmol/L [facility] Base Excess, Arterial 2.9 -2.0 - 3.0 mmol/L [facility] Patient Temperature 36.4 C [facility] FIO2 28.0 % [facility] Specimen Blood, Arterial Performing Organization Address [facility] Phone Number [address] [address] [facility] * Oxygen saturation, measured (10/08/2018 5:43 AM BILLING AND INSURANCE COORDINATOR) Only the most recent of 5 results within the time period is included. O2 Saturation (Measured) 63.0 % [facility] Specimen Blood Performing Organization Address City/[facility] Phone Number [address] [address] [facility] * aPTT (10/08/2018 5:43 AM BILLING AND INSURANCE COORDINATOR) Only the most recent of 13 results within the time period is included. PTT 66.3 (H) 22.5 - 36.0 seconds [facility] Specimen Blood Performing Organization Address [facility] [place] [address] [facility] * Blood gas, venous (10/08/2018 5:43 AM BILLING AND INSURANCE COORDINATOR) Only the most recent of 3 results within the time period is included. pH, Juventino 7.42 7.32 - 7.42 [facility] pCO2, Juventino 47 41 - 51 mmHg [facility] pO2, Juventino 31 25 - 40 mmHg [facility] O2 Sat, Juventino 60.6 40.0 - 70.0 % [facility] HCO3, Juventino 30 (H) 21 - 29 mmol/L [facility] Base Excess, Juventino 4.4 (H) -2.0 - 3.0 mmol/L [facility] Patient Temperature 37.0 C [facility] FIO2 21.0 % [facility] Specimen Blood Narrative Performed At From the distal port of PA cath. [facility] Performing Organization Address [facility] Phone Number [address] [address] [facility] * Potassium (10/07/2018 4:57 PM BILLING AND INSURANCE COORDINATOR) Only the most recent of 3 results within the time period is included. Potassium 4.8Comment: Specimen 3.5 - 5.1 meq/L [facility] moderately hemolyzed [facility] Specimen Blood - Line, Arterial Narrative Performed At Check Serum Potassium level 2 hours after oral potassium replacement completed [facility] or 30 min after intravenous potassium replacement. [facility] Performing Organization Address City/State/Zipcode Phone Number [facility] [address] [place] [address] [facility] * CTA chest (10/07/2018 1:37 PM BILLING AND INSURANCE COORDINATOR) Narrative Performed At Addendum Begins [facility] REPORT STATUS:A Addendum: I reviewed the nonvascular findings of this examination and concur with Dr. Frost's report. There is an approximately 10 mm slightly irregular nodule in the left upper lobe near the apex that is indeterminate. Follow-up is recommended, that could take the form of PET scanning. Bilateral small pleural effusions with left basilar consolidative changes consistent with atelectasis. Signed: Elsie Grijalva MD Report Verified Date/Time:10/07/2018 18:01:45 Reading Location: [place] [address] Angio Body Reading Room Addendum Ends FINAL REPORT CT angiography of the entire vascular tree, September 2018 INDICATION: This is a 67 year old male with diagnosis of peripheral arterial disease presents for assessment. TECHNIQUE: Spiral acquisition before and during intravenous contrast administration using a Yesy multidetector CT scanner. Images were obtained before and during the dynamic passage of intravenous contrast material.Multi-planar 3-D volume-rendering reconstruction was performed using an independent workstation interactively by the interpreting physician as well as the 3-D specialist for optimal visualization of the thoracoabdominal aorta, the pelvic arteries as well as its proximal branches. Please refer to the contrast sheet scanned in the EPIC system for the amount and route of contrast given. This exam was performed according to our departmental dose-optimisation programme, which includes automated exposure control, adjustment of the mA and/or kV according to patient size and/or use of iterative reconstruction technique. Dose modulation, iterative reconstruction, and/or weight based adjustment of the mA/kV was utilized to reduce the radiation dose to as low as reasonably achievable. FINDINGS: VASCULAR: The central pulmonary artery is prominent. No evidence of central pulmonary artery embolism is identified. A Icard-Nika catheter is seen, with tip in the mid left pulmonary artery. The cardiac chambers demonstrate normal atrioventricular and ventriculoarterial concordance, and systemic and pulmonary venous return. Left ventricular enlargement is identified. Patient already has cardiac MRI examination performed. Refer to formal report for details. No further comment will be made. Diffuse coronary artery calcification is seen in all three coronary territories with normal coronary artery origins. The thoracic aorta is normal in course and calibre. Scattered noncalcific atherosclerosis seen in the ascending thoracic aorta. The transverse arch and descending thoracic aorta has mild calcific and noncalcific atherosclerosis identified. No acute aortic pathology is seen and no dissection or contained rupture is noted. Arch vessel branching pattern is normal. Already documented in prior MRI report, substantial atherosclerosis is identified in the proximal 3 cm of the left subclavian artery, predominantly noncalcific atherosclerosis. At image 52, severe discrete focal stenosis is identified in the left subclavian artery. . Remainder of the left subclavian artery seen to well enhanced by contrast. The left vertebral artery is well seen and is a larger caliber than the right vertebral artery. The left axillary artery is patent. The right subclavian artery and the right axillary artery is also patent. In the abdominal aorta, circumferential noncalcific atherosclerosis seen with scattered calcific atherosclerosis identified. No aneurysmal dilation is noted. The coeliac axis is patent. Substantial noncalcific atherosclerosis identified in the mid SMA, suggesting moderate lesion. Significant calcification is seen at the ostium of the BEATRIS making accurate assessment limited. Remainder of the BEATRIS is enhanced by contrast that may be due to retrograde filling by surrounding collaterals. The left and the right common iliac arteries are patent though moderate calcific atherosclerosis is seen. 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 The left common femoral artery is seen to fill by contrast indicating reconstitution by surrounding collaterals. However, the left SFA has severe diffuse disease/subtotal occlusion identified. The left popliteal artery is reconstituted by surrounding collaterals and it is well enhanced by contrast and is widely patent. In the left lower extremity, the left anterior tibial artery is widely patent and the dorsalis pedis artery is well seen. Mild to moderate calcification is seen in the left tibioperoneal trunk. The left peroneal artery is well enhanced by contrast. The left posterior tibial artery is widely patent and the plantar arch is well seen distally. In the right, the right external iliac artery is not filled by contrast and the fossa stent is also occluded. The right common femoral artery is essentially occluded. The right SFA is essentially occluded. The right profunda system is unremarkable. There is reconstitution identified at the level of the right popliteal artery and remainder of the right popliteal artery is well enhanced by contrast. In the right lower extremity, moderate calcification is seen in the right tibioperoneal trunk. The right peroneal artery is well enhanced by contrast. The right anterior and posterior tibial artery is well enhanced by contrast and the plantar arch and the dorsalis pedis are also well seen. There is no evidence of acute aortic pathology, specifically, there is no dissection, intramural hematoma, or contained rupture. Quantitative dimensions of the thoracoabdominal aorta are as follows: 3.5 x 3.4 cm at the sinuses of Valsalva (the sino-tubular junction is preserved); 3.0 cm at the proximal ascending thoracic aorta; 3.1cm at the mid ascending aorta; 2.7cm at the distal ascending aorta; 2.4 cm at the mid transverse arch; 2.2 cm at the proximal descending aorta; 2.1 cm at the mid descending aorta; 1.9 cm at the diaphragmatic hiatus. In the abdomen, the aorta measures 1.7 cm at the mesenteric level; 1.7 cm at the renal level; and approximately 1.4 cm at the aortic bifurcation. NON-VASCULAR: The visualised thyroid gland appears grossly unremarkable.. The chest wall and mediastinum appear unremarkable. No significant adenopathy is identified except for some small lymph nodes The lung windows, no obvious endobronchial lesion is seen, however, bibasal pleural effusions identified with associated atelectatic changes. Paraseptal emphysematous changes are seen near the apex. A noncalcified nodular opacity is identified in the left upper lobe, with somewhat irregular margin, measures approximately 8 x 9 mm in diameter. No prior examination is available for comparison. This is an abnormal finding. In the abdomen, the liver and spleen appears unremarkable. The liver edge is smooth. No abnormal enhancing structure is identified. The gallbladder appears unremarkable. The adrenal glands appears unremarkable. The pancreas has no gross abnormality identified. No acute renal pathology is seen and no hydronephrosis or perirenal fluid collections identified. Bowel is not well assessed by CT angiography as enteric contrast is not given. No obvious bowel dilation is identified. Colonic diverticulum is seen in the distal colon with no inflammatory changes identified. The prostate gland is mildly prominent. The bladder is dilated. No significant retroperitoneal adenopathy is identified. No free air or free fluid seen abdomen and pelvis. In the bony windows, no acute bony pathology is seen and some degenerative changes are noted. CONCLUSIONS: 1.No acute pathology is identified in the entire thoracoabdominal aorta, however, in the descending thoracic aorta, mild calcific and noncalcific atherosclerosis identified. In the infrarenal abdominal aorta, [id number] circumferential calcific and noncalcific atherosclerosis also identified. No acute aortic pathology is identified. Quantitative dimensions of the thoracoabdominal aorta are as described above. 2.The following major abnormalities are noted: Diffuse atherosclerosis identified in the proximal 3 cm of the left subclavian artery leading to significant discrete stenosis. Remainder of the left subclavian artery and the left axillary artery are widely patent. The right subclavian artery and the right axillary artery are widely patent. Moderate atherosclerosis seen in the SMA, and there is likely moderate atherosclerosis seen at takeoff of the left and the right renal arteries. The left external iliac artery is occluded. Severe disease/subtotal occlusion is seen in the entire left SFA with reconstitution by surrounding collaterals in the left popliteal artery. Stent is seen in the right external iliac artery extending to the right common femoral artery that is occluded. The right SFA is essentially occluded with reconstitution by surrounding collaterals at the right popliteal artery level. 3.Diffuse coronary artery calcification. Left ventricular enlargement is identified already been detailed in MRI examination. 4.Bibasal pleural effusion. No evidence of central pulmonary artery embolism though the central pulmonary artery is prominent. A Icard-Nika catheter is identified. A9-10 mm nodule is seen in the left upper lobe. This should be followed with short-term examination, versus direct tissue sampling, versus PET scan. An addendum will be dictated thereafter. 5.Other findings as described above. 6.An addendum will be dictated by the Float Phlebotomist Radiologist regarding the nonvascular findings. Signed: Clemente Frost MD Report Verified Date/Time:10/07/2018 15:50:54 Reading Location: [place] [address] Cardiology MRI Procedure Note Interface, External Ris In - 10/07/2018 6:03 PM BILLING AND INSURANCE COORDINATOR Addendum Begins REPORT STATUS:A Addendum: I reviewed the nonvascular findings of this examination and concur with Dr. Frost's report. There is an approximately 10 mm slightly irregular nodule in the left upper lobe near the apex that is indeterminate. Follow-up is recommended, that could take the form of PET scanning. Bilateral small pleural effusions with left basilar consolidative changes consistent with atelectasis. Signed: Elsie Grijalva MD Report Verified Date/Time: 10/07/2018 18:01:45 Reading Location: [facility] [address] Angio Body Reading Room Addendum Ends FINAL REPORT CT angiography of the entire vascular tree, September 2018 INDICATION: This is a 67 year old male with diagnosis of peripheral arterial disease presents for assessment. TECHNIQUE: Spiral acquisition before and during intravenous contrast administration using a Yesy multidetector CT scanner. Images were obtained before and during the dynamic passage of intravenous contrast material. Multi-planar 3-D volume-rendering reconstruction was performed using an independent workstation interactively by the interpreting physician as well as the 3-D specialist for optimal visualization of the thoracoabdominal aorta, the pelvic arteries as well as its proximal branches. Please refer to the contrast sheet scanned in the EPIC system for the amount and route of contrast given. This exam was performed according to our departmental dose-optimisation programme, which includes automated exposure control, adjustment of the mA and/or kV according to patient size and/or use of iterative reconstruction technique. Dose modulation, iterative reconstruction, and/or weight based adjustment of the mA/kV was utilized to reduce the radiation dose to as low as reasonably achievable. FINDINGS: VASCULAR: The central pulmonary artery is prominent. No evidence of central pulmonary artery embolism is identified. A Icard-Nika catheter is seen, with tip in the mid left pulmonary artery. The cardiac chambers demonstrate normal atrioventricular and ventriculoarterial concordance, and systemic and pulmonary venous return. Left ventricular enlargement is identified. Patient already has cardiac MRI examination performed. Refer to formal report for details. No further comment will be made. Diffuse coronary artery calcification is seen in all three coronary territories with normal coronary artery origins. The thoracic aorta is normal in course and calibre. Scattered noncalcific atherosclerosis seen in the ascending thoracic aorta. The transverse arch and descending thoracic aorta has mild calcific and noncalcific atherosclerosis identified. No acute aortic pathology is seen and no dissection or contained rupture is noted. Arch vessel branching pattern is normal. Already documented in prior MRI report, substantial atherosclerosis is identified in the proximal 3 cm of the left subclavian artery, predominantly noncalcific atherosclerosis. At image 52, severe discrete focal stenosis is identified in the left subclavian artery. . Remainder of the left subclavian artery seen to well enhanced by contrast. The left vertebral artery is well seen and is a larger caliber than the right vertebral artery. The left axillary artery is patent. The right subclavian artery and the right axillary artery is also patent. In the abdominal aorta, circumferential noncalcific atherosclerosis seen with scattered calcific atherosclerosis identified. No aneurysmal dilation is noted. The coeliac axis is patent. Substantial noncalcific atherosclerosis identified in the mid SMA, suggesting moderate lesion. Significant calcification is seen at the ostium of the BEATRIS making accurate assessment limited. Remainder of the BEATRIS is enhanced by contrast that may be due to retrograde filling by surrounding collaterals. The left and the right common iliac arteries are patent though moderate calcific atherosclerosis is seen. 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 The left common femoral artery is seen to fill by contrast indicating reconstitution by surrounding collaterals. However, the left SFA has severe diffuse disease/subtotal occlusion identified. The left popliteal artery is reconstituted by surrounding collaterals and it is well enhanced by contrast and is widely patent. In the left lower extremity, the left anterior tibial artery is widely patent and the dorsalis pedis artery is well seen. Mild to moderate calcification is seen in the left tibioperoneal trunk. The left peroneal artery is well enhanced by contrast. The left posterior tibial artery is widely patent and the plantar arch is well seen distally. In the right, the right external iliac artery is not filled by contrast and the fossa stent is also occluded. The right common femoral artery is essentially occluded. The right SFA is essentially occluded. The right profunda system is unremarkable. There is reconstitution identified at the level of the right popliteal artery and remainder of the right popliteal artery is well enhanced by contrast. In the right lower extremity, moderate calcification is seen in the right tibioperoneal trunk. The right peroneal artery is well enhanced by contrast. The right anterior and posterior tibial artery is well enhanced by contrast and the plantar arch and the dorsalis pedis are also well seen. There is no evidence of acute aortic pathology, specifically, there is no dissection, intramural hematoma, or contained rupture. Quantitative dimensions of the thoracoabdominal aorta are as follows: 3.5 x 3.4 cm at the sinuses of Valsalva (the sino-tubular junction is preserved); 3.0 cm at the proximal ascending thoracic aorta; 3.1 cm at the mid ascending aorta; 2.7 cm at the distal ascending aorta; 2.4 cm at the mid transverse arch; 2.2 cm at the proximal descending aorta; 2.1 cm at the mid descending aorta; 1.9 cm at the diaphragmatic hiatus. In the abdomen, the aorta measures 1.7 cm at the mesenteric level; 1.7 cm at the renal level; and approximately 1.4 cm at the aortic bifurcation. NON-VASCULAR: The visualised thyroid gland appears grossly unremarkable.. The chest wall and mediastinum appear unremarkable. No significant adenopathy is identified except for some small lymph nodes The lung windows, no obvious endobronchial lesion is seen, however, bibasal pleural effusions identified with associated atelectatic changes. Paraseptal emphysematous changes are seen near the apex. A noncalcified nodular opacity is identified in the left upper lobe, with somewhat irregular margin, measures approximately 8 x 9 mm in diameter. No prior examination is available for comparison. This is an abnormal finding. In the abdomen, the liver and spleen appears unremarkable. The liver edge is smooth. No abnormal enhancing structure is identified. The gallbladder appears unremarkable. The adrenal glands appears unremarkable. The pancreas has no gross abnormality identified. No acute renal pathology is seen and no hydronephrosis or perirenal fluid collections identified. Bowel is not well assessed by CT angiography as enteric contrast is not given. No obvious bowel dilation is identified. Colonic diverticulum is seen in the distal colon with no inflammatory changes identified. The prostate gland is mildly prominent. The bladder is dilated. No significant retroperitoneal adenopathy is identified. No free air or free fluid seen abdomen and pelvis. In the bony windows, no acute bony pathology is seen and some degenerative changes are noted. CONCLUSIONS: 1. No acute pathology is identified in the entire thoracoabdominal aorta, however, in the descending thoracic aorta, mild calcific and noncalcific atherosclerosis identified. In the infrarenal abdominal aorta, [id number] circumferential calcific and noncalcific atherosclerosis also identified. No acute aortic pathology is identified. Quantitative dimensions of the thoracoabdominal aorta are as described above. 2. The following major abnormalities are noted: Diffuse atherosclerosis identified in the proximal 3 cm of the left subclavian artery leading to significant discrete stenosis. Remainder of the left subclavian artery and the left axillary artery are widely patent. The right subclavian artery and the right axillary artery are widely patent. Moderate atherosclerosis seen in the SMA, and there is likely moderate atherosclerosis seen at takeoff of the left and the right renal arteries. The left external iliac artery is occluded. Severe disease/subtotal occlusion is seen in the entire left SFA with reconstitution by surrounding collaterals in the left popliteal artery. Stent is seen in the right external iliac artery extending to the right common femoral artery that is occluded. The right SFA is essentially occluded with reconstitution by surrounding collaterals at the right popliteal artery level. 3. Diffuse coronary artery calcification. Left ventricular enlargement is identified already been detailed in MRI examination. 4. Bibasal pleural effusion. No evidence of central pulmonary artery embolism though the central pulmonary artery is prominent. A Icard-Nika catheter is identified. A 9-10 mm nodule is seen in the left upper lobe. This should be followed with short-term examination, versus direct tissue sampling, versus PET scan. An addendum will be dictated thereafter. 5. Other findings as described above. 6. An addendum will be dictated by the Float Phlebotomist Radiologist regarding the nonvascular findings. Signed: Clemente Frost MD Report Verified Date/Time: 10/07/2018 15:50:54 Reading Location: [place] [address] Cardiology MRI Performing Organization Address City/State/Zipcode Phone Number [facility] * [facility] (10/07/2018 1:37 PM BILLING AND INSURANCE COORDINATOR) Narrative Performed At Addendum Begins [facility] REPORT STATUS:A Addendum: I reviewed the nonvascular findings of this examination and concur with Dr. Frost's report. There is an approximately 10 mm slightly irregular nodule in the left upper lobe near the apex that is indeterminate. Follow-up is recommended, that could take the form of PET scanning. Bilateral small pleural effusions with left basilar consolidative changes consistent with atelectasis. Signed: Elsie Grijalva MD Report Verified Date/Time:10/07/2018 18:01:45 Reading Location: [place] [id number] Angio Body Reading Room Addendum Ends FINAL REPORT CT angiography of the entire vascular tree, September 2018 INDICATION: This is a 67 year old male with diagnosis of peripheral arterial disease presents for assessment. TECHNIQUE: Spiral acquisition before and during intravenous contrast administration using a [employer] multidetector CT scanner. Images were obtained before and during the dynamic passage of intravenous contrast material.Multi-planar 3-D volume-rendering reconstruction was performed using an independent workstation interactively by the interpreting physician as well as the 3-D specialist for optimal visualization of the thoracoabdominal aorta, the pelvic arteries as well as its proximal branches. Please refer to the contrast sheet scanned in the EPIC system for the amount and route of contrast given. This exam was performed according to our departmental dose-optimisation programme, which includes automated exposure control, adjustment of the mA and/or kV according to patient size and/or use of iterative reconstruction technique. Dose modulation, iterative reconstruction, and/or weight based adjustment of the mA/kV was utilized to reduce the radiation dose to as low as reasonably achievable. FINDINGS: VASCULAR: The central pulmonary artery is prominent. No evidence of central pulmonary artery embolism is identified. A Icard-Nika catheter is seen, with tip in the mid left pulmonary artery. The cardiac chambers demonstrate normal atrioventricular and ventriculoarterial concordance, and systemic and pulmonary venous return. Left ventricular enlargement is identified. Patient already has cardiac MRI examination performed. Refer to formal report for details. No further comment will be made. Diffuse coronary artery calcification is seen in all three coronary territories with normal coronary artery origins. The thoracic aorta is normal in course and calibre. Scattered noncalcific atherosclerosis seen in the ascending thoracic aorta. The transverse arch and descending thoracic aorta has mild calcific and noncalcific atherosclerosis identified. No acute aortic pathology is seen and no dissection or contained rupture is noted. Arch vessel branching pattern is normal. Already documented in prior MRI report, substantial atherosclerosis is identified in the proximal 3 cm of the left subclavian artery, predominantly noncalcific atherosclerosis. At image 52, severe discrete focal stenosis is identified in the left subclavian artery. . Remainder of the left subclavian artery seen to well enhanced by contrast. The left vertebral artery is well seen and is a larger caliber than the right vertebral artery. The left axillary artery is patent. The right subclavian artery and the right axillary artery is also patent. In the abdominal aorta, circumferential noncalcific atherosclerosis seen with scattered calcific atherosclerosis identified. No aneurysmal dilation is noted. The coeliac axis is patent. Substantial noncalcific atherosclerosis identified in the mid SMA, suggesting moderate lesion. Significant calcification is seen at the ostium of the BEATRIS making accurate assessment limited. Remainder of the BEATRIS is enhanced by contrast that may be due to retrograde filling by surrounding collaterals. The left and the right common iliac arteries are patent though moderate calcific atherosclerosis is seen. 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 The left common femoral artery is seen to fill by contrast indicating reconstitution by surrounding collaterals. However, the left SFA has severe diffuse disease/subtotal occlusion identified. The left popliteal artery is reconstituted by surrounding collaterals and it is well enhanced by contrast and is widely patent. In the left lower extremity, the left anterior tibial artery is widely patent and the dorsalis pedis artery is well seen. Mild to moderate calcification is seen in the left tibioperoneal trunk. The left peroneal artery is well enhanced by contrast. The left posterior tibial artery is widely patent and the plantar arch is well seen distally. In the right, the right external iliac artery is not filled by contrast and the fossa stent is also occluded. The right common femoral artery is essentially occluded. The right SFA is essentially occluded. The right profunda system is unremarkable. There is reconstitution identified at the level of the right popliteal artery and remainder of the right popliteal artery is well enhanced by contrast. In the right lower extremity, moderate calcification is seen in the right tibioperoneal trunk. The right peroneal artery is well enhanced by contrast. The right anterior and posterior tibial artery is well enhanced by contrast and the plantar arch and the dorsalis pedis are also well seen. There is no evidence of acute aortic pathology, specifically, there is no dissection, intramural hematoma, or contained rupture. Quantitative dimensions of the thoracoabdominal aorta are as follows: 3.5 x 3.4 cm at the sinuses of Valsalva (the sino-tubular junction is preserved); 3.0 cm at the proximal ascending thoracic aorta; 3.1cm at the mid ascending aorta; 2.7cm at the distal ascending aorta; 2.4 cm at the mid transverse arch; 2.2 cm at the proximal descending aorta; 2.1 cm at the mid descending aorta; 1.9 cm at the diaphragmatic hiatus. In the abdomen, the aorta measures 1.7 cm at the mesenteric level; 1.7 cm at the renal level; and approximately 1.4 cm at the aortic bifurcation. NON-VASCULAR: The visualised thyroid gland appears grossly unremarkable.. The chest wall and mediastinum appear unremarkable. No significant adenopathy is identified except for some small lymph nodes The lung windows, no obvious endobronchial lesion is seen, however, bibasal pleural effusions identified with associated atelectatic changes. Paraseptal emphysematous changes are seen near the apex. A noncalcified nodular opacity is identified in the left upper lobe, with somewhat irregular margin, measures approximately 8 x 9 mm in diameter. No prior examination is available for comparison. This is an abnormal finding. In the abdomen, the liver and spleen appears unremarkable. The liver edge is smooth. No abnormal enhancing structure is identified. The gallbladder appears unremarkable. The adrenal glands appears unremarkable. The pancreas has no gross abnormality identified. No acute renal pathology is seen and no hydronephrosis or perirenal fluid collections identified. Bowel is not well assessed by CT angiography as enteric contrast is not given. No obvious bowel dilation is identified. Colonic diverticulum is seen in the distal colon with no inflammatory changes identified. The prostate gland is mildly prominent. The bladder is dilated. No significant retroperitoneal adenopathy is identified. No free air or free fluid seen abdomen and pelvis. In the bony windows, no acute bony pathology is seen and some degenerative changes are noted. CONCLUSIONS: 1.No acute pathology is identified in the entire thoracoabdominal aorta, however, in the descending thoracic aorta, mild calcific and noncalcific atherosclerosis identified. In the infrarenal abdominal aorta, [id number] circumferential calcific and noncalcific atherosclerosis also identified. No acute aortic pathology is identified. Quantitative dimensions of the thoracoabdominal aorta are as described above. 2.The following major abnormalities are noted: Diffuse atherosclerosis identified in the proximal 3 cm of the left subclavian artery leading to significant discrete stenosis. Remainder of the left subclavian artery and the left axillary artery are widely patent. The right subclavian artery and the right axillary artery are widely patent. Moderate atherosclerosis seen in the SMA, and there is likely moderate atherosclerosis seen at takeoff of the left and the right renal arteries. The left external iliac artery is occluded. Severe disease/subtotal occlusion is seen in the entire left SFA with reconstitution by surrounding collaterals in the left popliteal artery. Stent is seen in the right external iliac artery extending to the right common femoral artery that is occluded. The right SFA is essentially occluded with reconstitution by surrounding collaterals at the right popliteal artery level. 3.Diffuse coronary artery calcification. Left ventricular enlargement is identified already been detailed in MRI examination. 4.Bibasal pleural effusion. No evidence of central pulmonary artery embolism though the central pulmonary artery is prominent. A Icard-Nika catheter is identified. A9-10 mm nodule is seen in the left upper lobe. This should be followed with short-term examination, versus direct tissue sampling, versus PET scan. An addendum will be dictated thereafter. 5.Other findings as described above. 6.An addendum will be dictated by the Float Phlebotomist Radiologist regarding the nonvascular findings. Signed: Clemente Frost MD Report Verified Date/Time:10/07/2018 15:50:54 Reading Location: [place] [address] Cardiology MRI Procedure Note Interface, External Ris In - 10/07/2018 6:03 PM BILLING AND INSURANCE COORDINATOR Addendum Begins REPORT STATUS:A Addendum: I reviewed the nonvascular findings of this examination and concur with Dr. Frost's report. There is an approximately 10 mm slightly irregular nodule in the left upper lobe near the apex that is indeterminate. Follow-up is recommended, that could take the form of PET scanning. Bilateral small pleural effusions with left basilar consolidative changes consistent with atelectasis. Signed: Elsie Grijalva MD Report Verified Date/Time: 10/07/2018 18:01:45 Reading Location: [place] [address] Angio Body Reading Room Addendum Ends FINAL REPORT CT angiography of the entire vascular tree, September 2018 INDICATION: This is a 67 year old male with diagnosis of peripheral arterial disease presents for assessment. TECHNIQUE: Spiral acquisition before and during intravenous contrast administration using a [employer] multidetector CT scanner. Images were obtained before and during the dynamic passage of intravenous contrast material. Multi-planar 3-D volume-rendering reconstruction was performed using an independent workstation interactively by the interpreting physician as well as the 3-D specialist for optimal visualization of the thoracoabdominal aorta, the pelvic arteries as well as its proximal branches. Please refer to the contrast sheet scanned in the EPIC system for the amount and route of contrast given. This exam was performed according to our departmental dose-optimisation programme, which includes automated exposure control, adjustment of the mA and/or kV according to patient size and/or use of iterative reconstruction technique. Dose modulation, iterative reconstruction, and/or weight based adjustment of the mA/kV was utilized to reduce the radiation dose to as low as reasonably achievable. FINDINGS: VASCULAR: The central pulmonary artery is prominent. No evidence of central pulmonary artery embolism is identified. A Icard-Niak catheter is seen, with tip in the mid left pulmonary artery. The cardiac chambers demonstrate normal atrioventricular and ventriculoarterial concordance, and systemic and pulmonary venous return. Left ventricular enlargement is identified. Patient already has cardiac MRI examination performed. Refer to formal report for details. No further comment will be made. Diffuse coronary artery calcification is seen in all three coronary territories with normal coronary artery origins. The thoracic aorta is normal in course and calibre. Scattered noncalcific atherosclerosis seen in the ascending thoracic aorta. The transverse arch and descending thoracic aorta has mild calcific and noncalcific atherosclerosis identified. No acute aortic pathology is seen and no dissection or contained rupture is noted. Arch vessel branching pattern is normal. Already documented in prior MRI report, substantial atherosclerosis is identified in the proximal 3 cm of the left subclavian artery, predominantly noncalcific atherosclerosis. At image 52, severe discrete focal stenosis is identified in the left subclavian artery. . Remainder of the left subclavian artery seen to well enhanced by contrast. The left vertebral artery is well seen and is a larger caliber than the right vertebral artery. The left axillary artery is patent. The right subclavian artery and the right axillary artery is also patent. In the abdominal aorta, circumferential noncalcific atherosclerosis seen with scattered calcific atherosclerosis identified. No aneurysmal dilation is noted. The coeliac axis is patent. Substantial noncalcific atherosclerosis identified in the mid SMA, suggesting moderate lesion. Significant calcification is seen at the ostium of the BEATRIS making accurate assessment limited. Remainder of the BEATRIS is enhanced by contrast that may be due to retrograde filling by surrounding collaterals. The left and the right common iliac arteries are patent though moderate calcific atherosclerosis is seen. 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 The left common femoral artery is seen to fill by contrast indicating reconstitution by surrounding collaterals. However, the left SFA has severe diffuse disease/subtotal occlusion identified. The left popliteal artery is reconstituted by surrounding collaterals and it is well enhanced by contrast and is widely patent. In the left lower extremity, the left anterior tibial artery is widely patent and the dorsalis pedis artery is well seen. Mild to moderate calcification is seen in the left tibioperoneal trunk. The left peroneal artery is well enhanced by contrast. The left posterior tibial artery is widely patent and the plantar arch is well seen distally. In the right, the right external iliac artery is not filled by contrast and the fossa stent is also occluded. The right common femoral artery is essentially occluded. The right SFA is essentially occluded. The right profunda system is unremarkable. There is reconstitution identified at the level of the right popliteal artery and remainder of the right popliteal artery is well enhanced by contrast. In the right lower extremity, moderate calcification is seen in the right tibioperoneal trunk. The right peroneal artery is well enhanced by contrast. The right anterior and posterior tibial artery is well enhanced by contrast and the plantar arch and the dorsalis pedis are also well seen. There is no evidence of acute aortic pathology, specifically, there is no dissection, intramural hematoma, or contained rupture. Quantitative dimensions of the thoracoabdominal aorta are as follows: 3.5 x 3.4 cm at the sinuses of Valsalva (the sino-tubular junction is preserved); 3.0 cm at the proximal ascending thoracic aorta; 3.1 cm at the mid ascending aorta; 2.7 cm at the distal ascending aorta; 2.4 cm at the mid transverse arch; 2.2 cm at the proximal descending aorta; 2.1 cm at the mid descending aorta; 1.9 cm at the diaphragmatic hiatus. In the abdomen, the aorta measures 1.7 cm at the mesenteric level; 1.7 cm at the renal level; and approximately 1.4 cm at the aortic bifurcation. NON-VASCULAR: The visualised thyroid gland appears grossly unremarkable.. The chest wall and mediastinum appear unremarkable. No significant adenopathy is identified except for some small lymph nodes The lung windows, no obvious endobronchial lesion is seen, however, bibasal pleural effusions identified with associated atelectatic changes. Paraseptal emphysematous changes are seen near the apex. A noncalcified nodular opacity is identified in the left upper lobe, with somewhat irregular margin, measures approximately 8 x 9 mm in diameter. No prior examination is available for comparison. This is an abnormal finding. In the abdomen, the liver and spleen appears unremarkable. The liver edge is smooth. No abnormal enhancing structure is identified. The gallbladder appears unremarkable. The adrenal glands appears unremarkable. The pancreas has no gross abnormality identified. No acute renal pathology is seen and no hydronephrosis or perirenal fluid collections identified. Bowel is not well assessed by CT angiography as enteric contrast is not given. No obvious bowel dilation is identified. Colonic diverticulum is seen in the distal colon with no inflammatory changes identified. The prostate gland is mildly prominent. The bladder is dilated. No significant retroperitoneal adenopathy is identified. No free air or free fluid seen abdomen and pelvis. In the bony windows, no acute bony pathology is seen and some degenerative changes are noted. CONCLUSIONS: 1. No acute pathology is identified in the entire thoracoabdominal aorta, however, in the descending thoracic aorta, mild calcific and noncalcific atherosclerosis identified. In the infrarenal abdominal aorta, [id number] circumferential calcific and noncalcific atherosclerosis also identified. No acute aortic pathology is identified. Quantitative dimensions of the thoracoabdominal aorta are as described above. 2. The following major abnormalities are noted: Diffuse atherosclerosis identified in the proximal 3 cm of the left subclavian artery leading to significant discrete stenosis. Remainder of the left subclavian artery and the left axillary artery are widely patent. The right subclavian artery and the right axillary artery are widely patent. Moderate atherosclerosis seen in the SMA, and there is likely moderate atherosclerosis seen at takeoff of the left and the right renal arteries. The left external iliac artery is occluded. Severe disease/subtotal occlusion is seen in the entire left SFA with reconstitution by surrounding collaterals in the left popliteal artery. Stent is seen in the right external iliac artery extending to the right common femoral artery that is occluded. The right SFA is essentially occluded with reconstitution by surrounding collaterals at the right popliteal artery level. 3. Diffuse coronary artery calcification. Left ventricular enlargement is identified already been detailed in MRI examination. 4. Bibasal pleural effusion. No evidence of central pulmonary artery embolism though the central pulmonary artery is prominent. A Icard-Nika catheter is identified. A 9-10 mm nodule is seen in the left upper lobe. This should be followed with short-term examination, versus direct tissue sampling, versus PET scan. An addendum will be dictated thereafter. 5. Other findings as described above. 6. An addendum will be dictated by the Float Phlebotomist Radiologist regarding the nonvascular findings. Signed: Clemente Frost MD Report Verified Date/Time: 10/07/2018 15:50:54 Reading Location: [place] [address] Cardiology MRI Performing Organization Address City/State/Zipcode Phone Number [facility] * US abdomen complete (10/07/2018 6:30 AM BILLING AND INSURANCE COORDINATOR) Narrative Performed At FINAL REPORT [facility] TECHNIQUE: Grayscale ultrasound of the abdomen with color Doppler and spectral Doppler ultrasound of the portal/hepatic vasculature. INDICATION: 67-year-old man with presumed cirrhosis. COMPARISON: None. FINDINGS: LIVER: The liver is normal in size and echogenicity. No overt nodularity of the liver contour. No focal liver lesions. HEPATIC VASCULATURE: Main portal vein measures 1.1 cm in diameter. Portal veins are patent with normal waveform and directionality. Flow velocity in the main portal vein is within normal limits. The hepatic arteries are patent with normal flow velocities, resistive indices, and waveforms. The hepatic veins and confluence are patent. BILIARY: Gallbladder: Mobile nonshadowing echogenic structure within the gallbladder, stone versus tumefactive sludge. No gallbladder wall thickening, pericholecystic fluid, or distention. Negative sonographic Berg sign. Common bile duct measures 0.4 cm, within normal limits. No intrahepatic biliary ductal dilatation. PANCREAS: Visualized portions of the pancreas are unremarkable. SPLEEN: No splenomegaly. PERITONEUM: No free fluid. KIDNEYS: Normal in size bilaterally. No hydronephrosis. No sonographically evident solid mass lesion. MIDLINE VASCULATURE: The visualized inferior vena cava is patent. The maximum visualized aortic diameter is 1.9 cm.Splenic artery and vein are patent. OTHER FINDINGS: Bilateral pleural effusions. IMPRESSION: The liver is not overtly cirrhotic. No focal liver lesion. Unremarkable Doppler evaluation of the hepatic and portal vasculature. Cholelithiasis versus gallbladder sludge. Signed: Jude Post MD Report Verified Date/Time:10/07/2018 08:49:04 Reading Location: [address] Ultrasound Reading Room Procedure Note Interface, External Ris In - 10/07/2018 8:51 AM BILLING AND INSURANCE COORDINATOR FINAL REPORT TECHNIQUE: Grayscale ultrasound of the abdomen with color Doppler and spectral Doppler ultrasound of the portal/hepatic vasculature. INDICATION: 67-year-old man with presumed cirrhosis. COMPARISON: None. FINDINGS: LIVER: The liver is normal in size and echogenicity. No overt nodularity of the liver contour. No focal liver lesions. HEPATIC VASCULATURE: Main portal vein measures 1.1 cm in diameter. Portal veins are patent with normal waveform and directionality. Flow velocity in the main portal vein is within normal limits. The hepatic arteries are patent with normal flow velocities, resistive indices, and waveforms. The hepatic veins and confluence are patent. BILIARY: Gallbladder: Mobile nonshadowing echogenic structure within the gallbladder, stone versus tumefactive sludge. No gallbladder wall thickening, pericholecystic fluid, or distention. Negative sonographic Berg sign. Common bile duct measures 0.4 cm, within normal limits. No intrahepatic biliary ductal dilatation. PANCREAS: Visualized portions of the pancreas are unremarkable. SPLEEN: No splenomegaly. PERITONEUM: No free fluid. KIDNEYS: Normal in size bilaterally. No hydronephrosis. No sonographically evident solid mass lesion. MIDLINE VASCULATURE: The visualized inferior vena cava is patent. The maximum visualized aortic diameter is 1.9 cm. Splenic artery and vein are patent. OTHER FINDINGS: Bilateral pleural effusions. IMPRESSION: The liver is not overtly cirrhotic. No focal liver lesion. Unremarkable Doppler evaluation of the hepatic and portal vasculature. Cholelithiasis versus gallbladder sludge. Signed: Jude Post MD Report Verified Date/Time: 10/07/2018 08:49:04 Reading Location: [address] Ultrasound Reading Room Performing Organization Address City/[facility] Phone Number GE [facility] * Prothrombin time/INR (10/07/2018 5:05 AM BILLING AND INSURANCE COORDINATOR) Only the most recent of 4 results within the time period is included. Protime 14.0 11.7 - 14.7 seconds [facility] INR 1.1 <=5.9 [facility] Specimen Blood Narrative Performed At RECOMMENDED COUMADIN/WARFARIN INR THERAPY RANGES [facility] STANDARD DOSE: 2.0 - 3.0 Includes: PROPHYLAXIS for venous thrombosis, [facility] systemic embolization; TREATMENT for venous thrombosis and/or pulmonary embolus. HIGH RISK: Target INR is 2.5-3.5 for patients with mechanical heart valves. Performing Organization Address [facility] Phone Number [place] [phone] [place] [address] * Troponin I (10/07/2018 1:12 AM BILLING AND INSURANCE COORDINATOR) Only the most recent of 3 results within the time period is included. Troponin I 1.32 (HH) 0.00 - 0.03 ng/mL [facility] Specimen Blood Narrative Performed At Troponin I (TnI) levels must be interpreted in the context of the presenting [facility] symptoms and the clinical findings. Elevated TnI levels indicate myocardial [facility] damage, but are not specific for ischemic heart disease. Elevated TnI levels are seen in patients with other cardiac conditions (including myocarditis and congestive heart failure), and slight TnI elevations occur in patients with other conditions, including sepsis, renal failure, acidosis, acute neurological disease, and persistent tachyarrhythmia. Performing Organization Address [facility] Phone Number [address] [address] [facility] * Lactic acid, arterial, whole blood (10/07/2018 1:12 AM BILLING AND INSURANCE COORDINATOR) Lactate, Art 1.0 0.5 - 2.2 mmol/L [facility] Specimen Blood, Arterial Performing Organization Address [facility] Phone Number [address] [place] [address] [facility] * PT/aPTT (10/06/2018 5:11 PM BILLING AND INSURANCE COORDINATOR) Only the most recent of 3 results within the time period is included. Protime 14.5 11.7 - 14.7 seconds [facility] INR 1.1 <=5.9 [facility] PTT 34.3 22.5 - 36.0 seconds [facility] Specimen Blood - Line, Arterial Narrative Performed At RECOMMENDED COUMADIN/WARFARIN INR THERAPY RANGES [facility] STANDARD DOSE: 2.0 - 3.0 Includes: PROPHYLAXIS for venous thrombosis, [facility] systemic embolization; TREATMENT for venous thrombosis and/or pulmonary embolus. HIGH RISK: Target INR is 2.5-3.5 for patients with mechanical heart valves. Performing Organization Address [facility] Phone Number [place] [phone] * TSH/Free T4 If Indicated (10/06/2018 10:17 AM BILLING AND INSURANCE COORDINATOR) Only the most recent of 2 results within the time period is included. TSH 6.87 (H) 0.35 - 4.94 uIU/mL [facility] Specimen Blood - Line, Arterial Performing Organization Address City/[facility] [place] [address] [phone] [place] [address] * Platelet count (10/06/2018 10:17 AM BILLING AND INSURANCE COORDINATOR) Platelets 161 150 - 450 K/CU MM [facility] Specimen Blood - Line, Arterial Performing Organization Address [facility] [place] [address] [phone] [place] [address] * T4, free (10/06/2018 10:17 AM BILLING AND INSURANCE COORDINATOR) Only the most recent of 2 results within the time period is included. Free T4 0.93 0.70 - 1.48 ng/dL [facility] Specimen Blood - Line, Arterial Performing Organization Address City/State/Zipcode Phone Number [facility] [address] [place] [address] MEDICAL [facility]ENTER * CBC with platelet count + automated diff (10/06/2018 5:38 AM BILLING AND INSURANCE COORDINATOR) WBC 8.7 3.5 - 10.5 K/L [facility] RBC 4.30 (L) 4.63 - 6.08 M/L [facility] Hemoglobin 14.6 13.7 - 17.5 GM/DL [facility] Hematocrit 44.4 40.1 - 51.0 % [facility] MCV 103.3 (H) 79.0 - 92.2 fL [facility] MCH 34.0 (H) 25.7 - 32.2 pg [facility] MCHC 32.9 32.3 - 36.5 GM/DL [facility] RDW 14.1 11.6 - 14.4 % [facility] Platelets 143 (L) 150 - 450 K/CU MM [facility] MPV 11.7 9.4 - 12.4 fL [facility] nRBC 0 0 - 0 /100 WBC [facility] % Neutros 60 % [facility] % Lymphs 20 % [facility] % Monos 16 % [facility] % Eos 2 % [facility] % Baso 1 % [facility] # Neutros 5.23 1.78 - 5.38 K/L [facility] # Lymphs 1.72 1.32 - 3.57 K/L [facility] # Monos 1.41 (H) 0.30 - 0.82 K/L [facility] # Eos 0.16 0.04 - 0.54 K/L [facility] # Baso 0.04 0.01 - 0.08 K/L [facility] Immature 1 0 - 1 % [facility] Granulocytes-Relative [facility] Specimen Blood Performing Organization Address City/[facility]/Zipcode Phone Number [address] [address] [facility] * HIV-1 Antigen with HIV-1/2 Antibody (10/05/2018 1:46 PM BILLING AND INSURANCE COORDINATOR) HIV-1 Antigen with HIV NON-REACTIVE Nonreactive [facility] 1&2 Antibody [facility] Specimen Blood - Line, Arterial Performing Organization Address City/[facility]/Zipcode Phone Number [address] [address] [facility] * Hemoglobin-Stat Lab (10/05/2018 1:40 PM BILLING AND INSURANCE COORDINATOR) Hemoglobin 15.0 13.0 - 16.8 g/dL [facility] Specimen Blood, Arterial - Arm, Left Performing Organization Address City/[facility] [place] [address] [phone] [place] [address] * Toxicology screen, serum (10/05/2018 11:21 AM BILLING AND INSURANCE COORDINATOR) DRUG TEST, GENERAL see note [facility], URINE,[facility] Comment: INCORPORATED The following compounds were detected: Caffeine Salicylic Acid For a list of compounds and limits of detection go to: http://education.[employer].com/faq/ETL103 This test was developed and its analytical performance characteristics have been determined by [employer] [place], [place]. It has not been cleared or approved by the U.S. Food and Drug Administration. This assay has been validated pursuant to the CLIA regulations and is used for clinical purposes. ACETONE ([facility]) None Detected [facility] METHANOL([facility]) None Detected [facility] Isopropanol([facility]) None Detected [facility] ETHANOL None Detected [facility] Comment: INCORPORATED Volatile Limit of Detection: 5 mg/dL Specimen Blood - Arm, Left Narrative Performed At Performing Lab [facility] [place], [address] [place] [address] Lexa Magaña MD, PhD Performing Organization Address City/State/Zipcode Phone Number [facility], [address] [place], [place] INCORPORATED [address] [address] * Comprehensive metabolic panel (10/05/2018 4:59 AM BILLING AND INSURANCE COORDINATOR) Protein, Total 6.9Comment: Specimen slightly 6.0 - 8.3 gm/dL [facility] Albumin 3.1 (L)Comment: Specimen 3.5 - 5.0 g/dL [facility] Alkaline Phosphatase 60 40 - 150 U/L [facility] Total Bilirubin 0.8Comment: Specimen slightly 0.2 - 1.2 mg/dL [facility] Sodium 133 (L) 136 - 145 meq/L [facility] Potassium 3.6Comment: Specimen slightly 3.5 - 5.1 meq/L [facility] Chloride 96 (L) 98 - 107 meq/L [facility] CO2 31 (H) 22 - 29 meq/L [facility] BUN 21 7 - 21 mg/dL [facility] Creatinine 0.74Comment: Specimen slightly 0.57 - 1.25 mg/dL [facility] Glucose 134 (H) 70 - 105 mg/dL [facility] Calcium 9.5 8.4 - 10.2 mg/dL [facility] AST 125 (H)Comment: Specimen 5 - 34 U/L [facility] ALT 341 (H)Comment: Specimen 6 - 55 U/L [facility] EGFR 106Comment: ESTIMATED GFR IS mL/min/1.73 sq m [facility] NOT ACCURATE CREATININE [facility] CLEARANCE IN PREDICTING GLOMERULAR FILTRATION RATE. ESTIMATED GFR IS NOT APPLICABLE FOR DIALYSIS PATIENTS. Specimen Blood Performing Organization Address City/State/Zipcode Phone Number [facility] [address] [place] [address] MEDICAL CENTER * ECHOCARDIOGRAM REPORT - SCAN (10/04/2018 5:20 PM BILLING AND INSURANCE COORDINATOR) Narrative Performed At * 2D Echo W/Doppler(CW/PW/Color) (10/04/2018 3:25 PM BILLING AND INSURANCE COORDINATOR) Ejection Fraction [facility] ECHO HEARTLAB MKCKESSON [facility] Narrative Performed At Transthoracic Echocardiography Report (TTE) [facility] ECHO [facility] Patient Name Franchesca MERCER of Study 10/04/2018 EMETERIO [id number] Male Visit Number [id number] Room Number 6106 Number Date of Birth1950Referring Physician Karson Roca Age67 year(s)Peanut Sheller Bulmaro Wei [facility] AnalystMailynInterpreting Iqra Guadalupe MD Procedure Type of Study TTE procedure:2DECHO W DOPPLER(CW/PW/COLOR) (STAT) Indications:Known or suspected heart failure. Clinical History Cirrhosis Dyspnea Coronary Artery Disease NSTEMI Congestive Heart Failure Tobacco Abuse HGB 15.7 HCT 47.4 % Height: 68 inches Weight: 63.05 kg (139 lbs) BSA: 1.75 m^2 BMI: 21.13 kg/m^2 HR: 120 bpm BP: 106/65 mmHg Summary The left ventricle is chamber size (by PSLAX dimension) is mildly enlarged (male - LVIDd 5.9-6.3cm) . Normal LV wall thickness. All of the LV segments are severely hypokinetic . LVEF by Briceno's method of disk assessment is severely reduced (20%) . LV diastolic function is indeterminate. Low (cardiac index <2 L/min/m2) cardiac output state at rest is noted. Estimated peak systolic PA pressure is cannot be determined due to inadequate TR velocity signal . No significant pericardial effusion is visualized. Signature Findings Left Ventricle The LV endocardium is well visualized. The left ventricle is chamber size (by PSLAX dimension) is mildly enlarged (male - LVIDd 5.9-6.3cm) . Normal LV wall thickness. All of the LV segments are severely hypokinetic . LVEF by Briceno's method of disk assessment is severely reduced (20%) . LV diastolic function is indeterminate. Low (cardiac index <2 L/min/m2) cardiac output state at rest is noted. Left AtriumLA size is mildly enlarged (35-41 ml/m2) . Right VentricleRV chamber size is normal . Global RV systolic function is mildly reduced . Right Atrium RA size is normal. Aortic Valve Mild AoV cusp thickening. No evidence of aortic regurgitation. Mitral Valve Mild MV leaflet thickening. Mild mitral regurgitation. Tricuspid ValveA trace of tricuspid regurgitation. Estimated peak systolic PA pressure is cannot be determined due to inadequate TR velocity signal . Pulmonic Valve Normal PV structure and function. AortaAortic root size (SInus of Valsalva diameter) is normal . PericardiumNo significant pericardial effusion is visualized. IVC/SVC/PA/PV/PleuralA left pleural effusion is noted. The inferior vena cava size is normal . The estimated RA pressure by IVC dynamics 0-5mmHg . Chambers/Structures Left Atrium LA Volume: 61.58 ml LA Area: 16.06 cm^2 LA Vol. Index: 35 ml/m^2 Left Ventricle LVIDd: 6.24 cm LVIDs: 5.82 cm LV Septum Diastolic: 1.06 cm LV PW Diastolic: 0.77 cmLV FS: 6.7 % LVEDV Briceno's:124.28 ml LVESV Briceno's:102.65 ml LVEDVI: 71 ml/m^2 LVEF Briceno's: 17.4 %LVESVI: 59 ml/m^2 LVOT Diameter: 2.05 cm Right Atrium RA Vol. (Sngl Plane): 33.44 ml Right Ventricle RV Diast Dim.: 3.14 cm TAPSE: 1.23 cm Aorta Ao Root S of Lorene.: 3.14 cm Doppler/Quantitative Measurements Mitral Valve MV Peak E-Wave: 0.86 m/s Peak Gradient: 2.96 mmHg Deceleration Time: 112 msec MV Barrington. Peak: Tissue Doppler E' Septal Velocity: 0.02 m/s E/E': 17.16 E' Lateral Velocity: 0.05 m/s Aortic Valve Peak Velocity: 1.11 m/s Mean Velocity: 0.79 m/s Peak Gradient: 4.92 mmHgMean Gradient: 2.8 mmHg AV Area (continuity): 1.79 cm^2 AV VTI: 14.77 cm AV DVI: 0.54 LVOT Peak Velocity: 0.67 m/s Peak Gradient: 1.82 mmHg Mean Velocity: 0.42 m/s Mean Gradient: 0.84 mmHg LVOT Diameter: 2.05 cmLVOT VTI: 8.01 cm LVOT Area: 3.3 cm^2 LVOT SV:26.42 ml LVOT CO: 3.17 l/min LVOT CI: 1.81 l/min/m^2 Procedure Note Interface, External Ris In - 10/04/2018 4:37 PM BILLING AND INSURANCE COORDINATOR Transthoracic Echocardiography Report (TTE) Demographics Patient Name KERVIN MERCER Date of Study 10/04/2018 EMETERIO Gender Male Visit Number [id number] Race Unknown Room Number 6106 Number Date of 1950 Referring Physician Karson Roca Age 67 year(s) Peanut Sheller Bulmaro Wei CS Senior Accounting Clerk Astrid Interpreting Araceli Guadalupe Physician Procedure Type of Study TTE procedure:2DECHO W DOPPLER(CW/PW/COLOR) (STAT) Indications:Known or suspected heart failure. Clinical History Cirrhosis Dyspnea Coronary Artery Disease NSTEMI Congestive Heart Failure Tobacco Abuse HGB 15.7 HCT 47.4 % Height: 68 inches Weight: 63.05 kg (139 lbs) BSA: 1.75 m^2 BMI: 21.13 kg/m^2 HR: 120 bpm BP: 106/65 mmHg Summary The left ventricle is chamber size (by PSLAX dimension) is mildly enlarged (male - LVIDd 5.9-6.3cm) . Normal LV wall thickness. All of the LV segments are severely hypokinetic . LVEF by Briceno's method of disk assessment is severely reduced (20%) . LV diastolic function is indeterminate. Low (cardiac index <2 L/min/m2) cardiac output state at rest is noted. Estimated peak systolic PA pressure is cannot be determined due to inadequate TR velocity signal . No significant pericardial effusion is visualized. Signature Findings Left Ventricle The LV endocardium is well visualized. The left ventricle is chamber size (by PSLAX dimension) is mildly enlarged (male - LVIDd 5.9-6.3cm) . Normal LV wall thickness. All of the LV segments are severely hypokinetic . LVEF by Briceno's method of disk assessment is severely reduced (20%) . LV diastolic function is indeterminate. Low (cardiac index <2 L/min/m2) cardiac output state at rest is noted. Left Atrium LA size is mildly enlarged (35-41 ml/m2) . Right Ventricle RV chamber size is normal . Global RV systolic function is mildly reduced . Right Atrium RA size is normal. Aortic Valve Mild AoV cusp thickening. No evidence of aortic regurgitation. Mitral Valve Mild MV leaflet thickening. Mild mitral regurgitation. Tricuspid Valve A trace of tricuspid regurgitation. Estimated peak systolic PA pressure is cannot be determined due to inadequate TR velocity signal . Pulmonic Valve Normal PV structure and function. Aorta Aortic root size (SInus of Valsalva diameter) is normal . Pericardium No significant pericardial effusion is visualized. IVC/SVC/PA/PV/Pleural A left pleural effusion is noted. The inferior vena cava size is normal . The estimated RA pressure by IVC dynamics 0-5mmHg . Chambers/Structures Left Atrium LA Volume: 61.58 ml LA Area: 16.06 cm^2 LA Vol. Index: 35 ml/m^2 Left Ventricle LVIDd: 6.24 cm LVIDs: 5.82 cm LV Septum Diastolic: 1.06 cm LV PW Diastolic: 0.77 cm LV FS: 6.7 % LVEDV Briceno's:124.28 ml LVESV Briceno's:102.65 ml LVEDVI: 71 ml/m^2 LVEF Briceno's: 17.4 % LVESVI: 59 ml/m^2 LVOT Diameter: 2.05 cm Right Atrium RA Vol. (Sngl Plane): 33.44 ml Right Ventricle RV Diast Dim.: 3.14 cm TAPSE: 1.23 cm Aorta Ao Root S of Lorene.: 3.14 cm Doppler/Quantitative Measurements Mitral Valve MV Peak E-Wave: 0.86 m/s Peak Gradient: 2.96 mmHg Deceleration Time: 112 msec MV Barrington. Peak: Tissue Doppler E' Septal Velocity: 0.02 m/s E/E': 17.16 E' Lateral Velocity: 0.05 m/s Aortic Valve Peak Velocity: 1.11 m/s Mean Velocity: 0.79 m/s Peak Gradient: 4.92 mmHg Mean Gradient: 2.8 mmHg AV Area (continuity): 1.79 cm^2 AV VTI: 14.77 cm AV DVI: 0.54 LVOT Peak Velocity: 0.67 m/s Peak Gradient: 1.82 mmHg Mean Velocity: 0.42 m/s Mean Gradient: 0.84 mmHg LVOT Diameter: 2.05 cm LVOT VTI: 8.01 cm LVOT Area: 3.3 cm^2 LVOT SV:26.42 ml LVOT CO: 3.17 l/min LVOT CI: 1.81 l/min/m^2 Performing Organization Address City/State/Zipcode Phone Number [facility] ECHO HEARTLAB [facility] * MR cardiac without & with IV contrast (10/04/2018 1:26 PM BILLING AND INSURANCE COORDINATOR) Narrative Performed At FINAL REPORT [facility] Cardiac MRI dated 04 October 2018 INDICATION: This is a 67 year-old male with a diagnosis of ischaemic heart disease presents for assessment. This study is performed in order to quantitate left ventricular function, and to determine myocardial viability and damage. According to EPIC, patient have significant coronary artery disease, with the following lesions: mLAD 90%, D1 70%, D2 80%, LCX 90%, mRCA 90%, AM 90%, Mod MR, EF 15% Patient weighs 140 pounds, with height of 68 inches. Body surface area is 1.75 sq m. Scanning blood pressure was 124/83. TECHNIQUE: Yesy ACHIEVA MRI scanner. Morphologic and dynamic cine imaging were performed in multiple projections before and after contrast administration.Thereafter, gadolinium was administered, which was followed by viability/scar imaging.Finally, flow quantification sequences were performed to determine the degree of valvular dysfunction. Please refer to the contrast sheet scanned in the EPIC system for the amount and route of contrast given. FINDINGS: The chest wall and mediastinum appears unremarkable. The pericardium appears normal, however, mild pericardial effusion is identified. The central pulmonary artery is at the upper limits of normal in calibre. Mild to moderate bibasal pleural effusion is identified, right greater than left. Associated atelectatic changes are seen. The cardiac chambers demonstrate normal atrioventricular and ventriculoarterial concordance, and systemic and pulmonary venous return. The thoracic aorta is normal in course, caliber, and contour. There is no evidence of acute aortic pathology, such as dissection, intramural hematoma, or contained rupture. Moderate atherosclerosis is seen in the descending thoracic aorta. In addition, whilst this is not a dedicated MRA, in the available professional employer consultant images, there appears to be substantial atherosclerosis seen at the vertical segment of the proximal left subclavian artery. The left ventricle is enlarged with severe global systolic dysfunction; furthermore, the inferior wall and the lateral wall has the worse wall motion and modality, and essentially they are akinetic. In fact the most distal lateral wall is slightly dyskinetic. Quantitative values are as follows: ESA=581 cc; ESV= 239 cc; stroke volume=20 cc; and ejection fraction=8%. Calculated absolute cardiac output=2.3 liters/min.Absolute left ventricular gtoj=464 grams. Index QWJPR=571 cc/sq m. The right ventricle is normal in size, however, there is also severe systolic dysfunction. Quantitative values are as follows: JNW=601 cc; ESV=78 cc; stroke volume=23 cc; and ejection fraction=22%. Cine imaging and flow quantification reveals trace mitral regurgitation. Viability/scar imaging reveals viable myocardium seen in the entire interventricular septum, and the entire anterior wall, and apex. The mid anterolateral wall is viable. Near transmural to transmural scar is seen in the basal one third of the inferior wall with viable myocardium of at most 1 to 2 mm in thickness. The mid inferior wall and the distal inferior wall is viable. The basal two third of the inferolateral wall, the basal one third of the anterolateral wall, and the distal lateral wall has near transmural to transmural scar present, with viable myocardium of head most 1 to 2 mm in thickness. Ventricular thrombus is not present. Mild left atrial prominence is noted. CONCLUSIONS: 1.The left ventricle enlarged, with severe global systolic dysfunction as described above. Indexed EDV is 149 cc/sq m confirming left ventricular enlargement, and likely remodeling. Ejection fraction is quantified to be 8%. Quantitative left ventricular functional values are as described above. The right ventricle is normal in size, with severe systolic dysfunction. Right ventricular ejection fraction is 22%. Quantitative right ventricular functional values are as described above. Viability/scar imaging reveals viable myocardium seen in the entire interventricular septum, and the entire anterior wall, and apex. The mid anterolateral wall is viable. Near transmural to transmural scar is seen in the basal one third of the inferior wall with viable myocardium of at most 1 to 2 mm in thickness. The mid inferior wall and the distal inferior wall is viable. The basal two third of the inferolateral wall, the basal one third of the anterolateral wall, and the distal lateral wall has near transmural to transmural scar present, with viable myocardium of head most 1 to 2 mm in thickness. These areas are essentially nonviable. 2.Other findings as described above, including bibasal pleural effusion, right greater than left. Signed: Clemente Frost MD Report Verified Date/Time:10/04/2018 15:17:18 Reading Location: [facility] P047 Cardiology MRI Procedure Note Interface, External Ris In - 10/04/2018 3:19 PM BILLING AND INSURANCE COORDINATOR FINAL REPORT Cardiac MRI dated 04 October 2018 INDICATION: This is a 67 year-old male with a diagnosis of ischaemic heart disease presents for assessment. This study is performed in order to quantitate left ventricular function, and to determine myocardial viability and damage. According to EPIC, patient have significant coronary artery disease, with the following lesions: mLAD 90%, D1 70%, D2 80%, LCX 90%, mRCA 90%, AM 90%, Mod MR, EF 15% Patient weighs 140 pounds, with height of 68 inches. Body surface area is 1.75 sq m. Scanning blood pressure was 124/83. TECHNIQUE: Yesy ACHIEVA MRI scanner. Morphologic and dynamic cine imaging were performed in multiple projections before and after contrast administration. Thereafter, gadolinium was administered, which was followed by viability/scar imaging. Finally, flow quantification sequences were performed to determine the degree of valvular dysfunction. Please refer to the contrast sheet scanned in the EPIC system for the amount and route of contrast given. FINDINGS: The chest wall and mediastinum appears unremarkable. The pericardium appears normal, however, mild pericardial effusion is identified. The central pulmonary artery is at the upper limits of normal in calibre. Mild to moderate bibasal pleural effusion is identified, right greater than left. Associated atelectatic changes are seen. The cardiac chambers demonstrate normal atrioventricular and ventriculoarterial concordance, and systemic and pulmonary venous return. The thoracic aorta is normal in course, caliber, and contour. There is no evidence of acute aortic pathology, such as dissection, intramural hematoma, or contained rupture. Moderate atherosclerosis is seen in the descending thoracic aorta. In addition, whilst this is not a dedicated MRA, in the available professional employer consultant images, there appears to be substantial atherosclerosis seen at the vertical segment of the proximal left subclavian artery. The left ventricle is enlarged with severe global systolic dysfunction; furthermore, the inferior wall and the lateral wall has the worse wall motion and modality, and essentially they are akinetic. In fact the most distal lateral wall is slightly dyskinetic. Quantitative values are as follows: YWD=104 cc; ESV= 239 cc; stroke volume=20 cc; and ejection fraction=8%. Calculated absolute cardiac output=2.3 liters/min. Absolute left ventricular jbkr=467 grams. Index EXNDY=630 cc/sq m. The right ventricle is normal in size, however, there is also severe systolic dysfunction. Quantitative values are as follows: SOX=252 cc; ESV=78 cc; stroke volume=23 cc; and ejection fraction=22%. Cine imaging and flow quantification reveals trace mitral regurgitation. Viability/scar imaging reveals viable myocardium seen in the entire interventricular septum, and the entire anterior wall, and apex. The mid anterolateral wall is viable. Near transmural to transmural scar is seen in the basal one third of the inferior wall with viable myocardium of at most 1 to 2 mm in thickness. The mid inferior wall and the distal inferior wall is viable. The basal two third of the inferolateral wall, the basal one third of the anterolateral wall, and the distal lateral wall has near transmural to transmural scar present, with viable myocardium of head most 1 to 2 mm in thickness. Ventricular thrombus is not present. Mild left atrial prominence is noted. CONCLUSIONS: 1. The left ventricle enlarged, with severe global systolic dysfunction as described above. Indexed EDV is 149 cc/sq m confirming left ventricular enlargement, and likely remodeling. Ejection fraction is quantified to be 8%. Quantitative left ventricular functional values are as described above. The right ventricle is normal in size, with severe systolic dysfunction. Right ventricular ejection fraction is 22%. Quantitative right ventricular functional values are as described above. Viability/scar imaging reveals viable myocardium seen in the entire interventricular septum, and the entire anterior wall, and apex. The mid anterolateral wall is viable. Near transmural to transmural scar is seen in the basal one third of the inferior wall with viable myocardium of at most 1 to 2 mm in thickness. The mid inferior wall and the distal inferior wall is viable. The basal two third of the inferolateral wall, the basal one third of the anterolateral wall, and the distal lateral wall has near transmural to transmural scar present, with viable myocardium of head most 1 to 2 mm in thickness. These areas are essentially nonviable. 2. Other findings as described above, including bibasal pleural effusion, right greater than left. Signed: Clemente Frost MD Report Verified Date/Time: 10/04/2018 15:17:18 Reading Location: [facility] P047 Cardiology MRI Performing Organization Address City/State/Zipcode Phone Number GE RIS * Anti-Mitochondrial Ab, reflex to titer (10/04/2018 5:02 AM BILLING AND INSURANCE COORDINATOR) Scan Result [facility] Specimen Blood Narrative Performed At Performing Organization Address City/[facility] Phone Number [place], [address] [facility] [address] * Actin (Smooth Muscle) Antibody, IgG (10/04/2018 5:02 AM BILLING AND INSURANCE COORDINATOR) Anti-Smooth Muscle Ab 28 (H) See Note: U [facility] Comment: [facility]PORATED Reference Range: <20 NEGATIVE > OR=20 POSITIVE Antibodies recognizing actin are the main component of smooth muscle antibodies associated with autoimmune liver disease. Actin antibodies are found in approximately 75% of patients with autoimmune hepatitis (AIH) type 1, approximately 65% of patients with autoimmune cholangitis, approximately 30% of patients with primary biliary cirrhosis, and approximately 2% of healthy people. High values are closely correlated with AIH type 1. Specimen Blood Narrative Performed At Performing Lab [facility] [employer] [address] [place] [address] Yg Levine MD, PhD, KIRA Performing Organization Address City/[facility] Cent[facility] Phone Number [place], [address] [facility] [address] * Kvhbr-[id number] (10/04/2018 5:02 AM BILLING AND INSURANCE COORDINATOR) A-1 Antitrypsin 201.10 (H) 90.00 - 200.00 mg/dL [facility] Specimen Blood Performing Organization Address [facility] Cent[facility]ode Phone Number [facility] [address] [place] [address] [facility] * Hepatitis C genotype (10/04/2018 5:02 AM BILLING AND INSURANCE COORDINATOR) HCV Genotype, LiPA 1a [facility] Comment: INCORPORATED The method used in this test is RT-PCR and reverse hybridization (Line Probe) of the 5' UTR and core region of the HCV genome. The analytical performance characteristics of this assay have been determined by [facility]. The modifications have not been cleared or approved by the FDA. This assay has been validated pursuant to the CLIA regulations and is used for clinical purposes. For additional information, please refer to http://education.Taykey /faq/HCVGenotyping (This link id being provided for informational/ educational purposes only.) Specimen Blood Narrative Performed At Performing Lab [facility] [address] [place] [address] Amisha Roth MD Performing Organization Address City/State/Zipcode Phone Number [facility], [address] [place], [place] [facility] [address] * Hepatitis C PCR, Quantitative (10/04/2018 5:02 AM BILLING AND INSURANCE COORDINATOR) HCV PCR, Quantitative 1,680,000 (H) <15 IU/mL [facility] Specimen Blood Narrative Performed At This test uses a Real-Time Polymerase Chain Reaction (RT-PCR) methodology and [facility] was performed using JANE Ampliprep/JANE TaqMan HCV test kit version 2.0 [facility] ([employer] Reportable range for this assay is 15 - 100,000,000 IU per mL (1.18 - 8.00 Log IU/mL). Performing Organization Address [facility] [place] [address] [phone] [place] [address] * Anti-Nuclear Antibody (AURY) (10/04/2018 5:02 AM BILLING AND INSURANCE COORDINATOR) AURY Negative Negative [facility] Specimen Blood Narrative Performed At Test performed by IFA method. [facility] Test performed by IFA method. [facility] Performing Organization Address City/[facility]/Zipcode Phone Number [address] [address] [facility] * Hepatitis A antibody, IgG (10/03/2018 1:06 PM BILLING AND INSURANCE COORDINATOR) Hep A IgG Reactive (A) Nonreactive [facility] Specimen Blood - Arm, Left Performing Organization Address [facility] Cent[facility] Phone Number [address] [address] [facility] * Hepatitis B core antibody, total (10/03/2018 1:06 PM BILLING AND INSURANCE COORDINATOR) Hep B Core Total Ab REACTIVE (A) Nonreactive [facility] Specimen Blood - Arm, Left Performing Organization Address [facility] Phone Number [address] * Hepatitis B surface antibody (10/03/2018 1:06 PM BILLING AND INSURANCE COORDINATOR) Hep B S Ab 527.4 (H) <8.0 mIU/mL [facility] Specimen Blood - Arm, Left Performing Organization Address [facility] Phone Number [address] * Gamma Glutamyl Transferase (GGT) (10/03/2018 1:06 PM BILLING AND INSURANCE COORDINATOR) GGT 121 (H) 9 - 64 U/L [facility] Specimen Blood - Arm, Left Performing Organization Address [facility] Phone Number [address] * Immunoglobulin G (IgG) (10/03/2018 1:06 PM BILLING AND INSURANCE COORDINATOR) IgG 2,242 (H) 540-1,822 mg/dL [facility] Specimen Blood - Arm, Left Performing Organization Address [facility] Phone Number [address] * Procalcitonin (10/03/2018 6:43 AM BILLING AND INSURANCE COORDINATOR) Procalcitonin 0.14 (H) <0.05 ng/mL [facility] Specimen Blood Narrative Performed At SEPSIS RISK (ng/mL) [facility] Low:0.05-0.50 [facility] Intermediate: 0.51-2.00 High: >=2.01 Performing Organization Address [facility] Phone Number [address] CENTER * Vitamin B12 and Folate (10/03/2018 3:23 AM BILLING AND INSURANCE COORDINATOR) Vitamin B12 501 213 - 816 pg/mL [facility] Folate 10.7 >=7.0 ng/mL [facility] Specimen Blood Performing Organization Address City/[facility] Phone Number [address] * Iron, TIBC, % sat. (without ferritin) (10/03/2018 3:23 AM BILLING AND INSURANCE COORDINATOR) Iron 40.0 40.0 - 160.0 ug/dL [facility] TIBC 215 (L) 250 - 450 ug/dL [facility] Iron % Saturation 19 (L) 20 - 55 % [facility] Specimen Blood Performing Organization Address City/[facility] Phone Number [address] * Immunofixation electrophoresis (ARNOLD) (10/03/2018 3:23 AM BILLING AND INSURANCE COORDINATOR) IgG 2,177 (H) 540-1,822 mg/dL [facility] IgA 124 63 - 484 mg/dL [facility] IgM 54 22 - 293 mg/dL [facility] Serum ARNOLD Identification No monoclonal proteins [facility] detected. Polyclonal [facility] distribution of immunoglobulins. Pathologist: Madhavi Hagen MD [facility] (electronic signature) [facility] Specimen Blood Performing Organization Address City/[facility] [place] [address] [phone] [place] [address] * Protein electrophoresis, serum (10/03/2018 3:23 AM BILLING AND INSURANCE COORDINATOR) Albumin Fraction 3.1 (L) 3.5 - 5.5 g/dL [facility] Alpha 1 Fraction 0.3 0.2 - 0.4 g/dL [facility] Alpha 2 Fraction 0.7 0.5 - 0.9 g/dL [facility] Beta Fraction 0.6 0.6 - 1.1 g/dL [facility] Gamma Globulin Fraction 2.0 (H) 0.7 - 1.7 g/dL [facility] Interpretation Slight polyclonal elevation of [facility] gamma globulins, suggestive of [facility] chronic inflammatory process. No monoclonal bands detected. Pathologist: Madhavi Hagen MD [facility] (electronic signature) [facility] Protein, Total 6.7 6.0 - 8.3 gm/dL [facility] Specimen Blood Performing Organization Address City/[facility]/Zipcode Phone Number [place] [phone] [place] [address] * Hemoglobin A1c (10/03/2018 3:23 AM BILLING AND INSURANCE COORDINATOR) Hemoglobin A1C 5.2 4.3 - 6.1 % [facility] Specimen Blood Performing Organization Address City/[facility]/Zipcode Phone Number [address] * Ferritin (10/03/2018 3:23 AM BILLING AND INSURANCE COORDINATOR) Ferritin 942 (H) 5 - 275 ng/mL [facility] Specimen Blood Performing Organization Address City/[facility]/[place] [address] [phone] [address] * Lipid panel (10/03/2018 3:23 AM BILLING AND INSURANCE COORDINATOR) Triglycerides 52 mg/dL [facility] Cholesterol 97 mg/dL [facility] HDL 25 mg/dL [facility] LDL Calculated 62 mg/dL [facility] Specimen Blood Narrative Performed At Triglyceride Reference Range: [facility] Low Risk <150 [facility] [id number] High Risk 200-499 Very High Risk>=500 Cholesterol Reference Range: Low Risk <200 [id number] High Risk>240 HDL Cholesterol Reference Range: Low Risk >=60 High Risk <40 LDL Cholesterol Reference Range: Optimal<100 Near [id number] Nxfhemiwcb894-753 Pxsy038-487 Very High >=190 Performing Organization Address City/[facility] Phone Number [address] [address] [phone] [place] [address] * Phosphorus (10/02/2018 10:51 PM BILLING AND INSURANCE COORDINATOR) Phosphorus 4.1 2.3 - 4.7 mg/dL [facility] Specimen Blood Performing Organization Address [facility] Phone Number [place] [phone] [place] [address] * Creatine Kinase (CK) (10/02/2018 10:51 PM BILLING AND INSURANCE COORDINATOR) Total CK 17 (L) 29 - 200 U/L [facility] Specimen Blood Performing Organization Address [facility] Phone Number [place] [phone] [place] [address] * Lactic acid, venous, whole blood (10/02/2018 9:28 PM BILLING AND INSURANCE COORDINATOR) Lactate, Venous 1.4Comment: Specimen 0.5 - 2.2 mmol/L [facility] moderately hemolyzed [facility] Specimen Blood Performing Organization Address [facility] Phone Number [address] [address] [facility] * POC-Lactic Acid, Venous (10/02/2018 8:06 PM BILLING AND INSURANCE COORDINATOR) POC-Lactic Acid, Venous 1.8 (H)Comment: TESTED AT 0.9 - 1.7 mmol/L [address] [address] Specimen Blood Performing Organization Address [facility] Phone Number [address] [address] [facility] * Hepatitis panel, acute (10/02/2018 5:02 AM BILLING AND INSURANCE COORDINATOR) Hep A IgM HEPATITIS A TEST NEGATIVE Nonreactive [facility] Hep B C IgM NON-REACTIVE Nonreactive [facility] Hepatitis C Ab Reactive (A) Nonreactive [facility] hepatitis B Surface Ag NON-REACTIVE Nonreactive [facility] Specimen Blood - Hand, Left Performing Organization Address City/State/Zipcode Phone Number [facility] [address] [place], [place] [phone] [facility] after 01/02/2018 Insurance Payer Benefit Subscriber ID Type Phone Address Plan / Group [employer] [facility] [facility] Directives For more information, please contact: [address] [phone] Date Inactivated Comments Code Status Date Activated Full Code 10/02/2018 2:58 AM This code status was determined by: Patient Relationship Healthcare Agent Relationship Phone Name Sister Primary healthcare agent [phone] EMMA Josue
--- OUTSIDE RECORDS SUMMARY | 2019-01-03 14:40 | XMS REPORT ---
Author Author [facility] Address Unknown Phone Unavailable Care Team Providers Care Cadd Technician Name Role Phone LINDABRANDON HANNA Unavailable Unavailable Payers Payer Name Policy Type Policy Number Effective Date Expiration Date Problems This patient has no known problems. Allergies, Adverse Reactions, Alerts Allergy Name Allergy Type Status Severity Reaction(s) Onset Date Inactive Date Treating Clinician Comments No Known Allergies DA Active U 2017-01-16 00:00:00 Medications This patient has no known medications. Results Test Description Test Time Test Comments Text Results Atomic Results Result Comments , ABDOMEN, WITH 2018-10-12 08:52:00 FINAL REPORT MRI of the abdomen. CLINICAL HISTORY: Neoplasm: abdomen, other primary, suspectedEvaluate Hepatic parenchyma - cirrhosis and for HCC. [...] either a stone or polyp. The spleen, patel creas, kidneys and adrenal glands are unremarkable. There are no dilated loops of bowel seen to suggest obstruction. No ascites is seen. The aorta is normal in caliber. No suspicious adenopathy is seen. The visualized osseous structures demonstrate heterogeneous marrow signal, particularly in the pelvis which could represent red marrow conversion. IMPRESSION:1. No suspicious hepatic masses.2. Tiny gallbladder polyp or stone.3. Small pleural effusions. Signed: Nguyễn López MDReport Verified Date/Time: 10/12/2018 08:52:06 Reading Location: [address] Consult Reading Room A FETOPROTEIN (AFP), TUMOR MARKER 2018-10-12 07:09:00 ALPHA-FETOPROTEIN (BEAKER) (test bxut=2428) 4.3 ng/mL <10.0 CBC (HEMOGRAM ONLY)2018-10-12 06:38:00* Test Item Value Reference Range Comments WHITE BLOOD CELL COUNT (BEAKER) (test izyn=436) 5.9 K/ L 3.5-10.5 RED BLOOD CELL COUNT (BEAKER) (test gzpt=159) 3.68 M/ L 4.63-6.08 HEMOGLOBIN (BEAKER) (test enlo=765) 12.5 GM/DL 13.7-17.5 HEMATOCRIT (BEAKER) (test galh=390) 38.4 % 40.1-51.0 MEAN CORPUSCULAR VOLUME (BEAKER) (test oafu=341) 104.3 fL 79.0-92.2 MEAN CORPUSCULAR HEMOGLOBIN (BEAKER) (test wdhz=098) 34.0 pg 25.7-32.2 MEAN CORPUSCULAR HEMOGLOBIN CONC (BEAKER) (test kvpq=713) 32.6 GM/DL 32.3-36.5 RED CELL DISTRIBUTION WIDTH (BEAKER) (test phle=918) 13.4 % 11.6-14.4 PLATELET COUNT (BEAKER) (test bbgx=599) 181 K/CU MM 150-450 MEAN PLATELET VOLUME (BEAKER) (test xlcg=949) 12.3 fL 9.4-12.4 NUCLEATED RED BLOOD CELLS (BEAKER) (test sxhc=534) 0 /100 WBC 0-0 B-TYPE NATRIURETIC FACTOR (BNP)2018-10-11 05:27:00* Test Item Value Reference Range Comments B-TYPE NATRIURETIC PEPTIDE (BEAKER) (test cckk=804) 2855 pg/mL 0-100 CBC (HEMOGRAM ONLY)2018-10-11 04:39:00* Test Item Value Reference Range Comments WHITE BLOOD CELL COUNT (BEAKER) (test iarj=546) 9.2 K/ L 3.5-10.5 RED BLOOD CELL COUNT (BEAKER) (test agwl=948) 4.01 M/ L 4.63-6.08 HEMOGLOBIN (BEAKER) (test sdpb=634) 13.0 GM/DL 13.7-17.5 HEMATOCRIT (BEAKER) (test vdpv=562) 41.1 % 40.1-51.0 MEAN CORPUSCULAR VOLUME (BEAKER) (test kiow=356) 102.5 fL 79.0-92.2 MEAN CORPUSCULAR HEMOGLOBIN (BEAKER) (test jnkh=383) 32.4 pg 25.7-32.2 MEAN CORPUSCULAR HEMOGLOBIN CONC (BEAKER) (test iuwu=255) 31.6 GM/DL 32.3-36.5 RED CELL DISTRIBUTION WIDTH (BEAKER) (test bwbn=703) 13.4 % 11.6-14.4 PLATELET COUNT (BEAKER) (test ukjm=485) 181 K/CU MM 150-450 MEAN PLATELET VOLUME (BEAKER) (test psag=559) 12.2 fL 9.4-12.4 NUCLEATED RED BLOOD CELLS (BEAKER) (test aiqk=707) 0 /100 WBC 0-0 HEPATIC FUNCTION [id number] 13:35:00* Test Item Value Reference Range Comments TOTAL PROTEIN (BEAKER) (test szea=916) 7.5 gm/dL 6.0-8.3 ALBUMIN (BEAKER) (test aqer=7312) 3.4 g/dL 3.5-5.0 BILIRUBIN TOTAL (BEAKER) (test oxwl=078) 0.8 mg/dL 0.2-1.2 BILIRUBIN DIRECT (BEAKER) (test ltqm=041) 0.4 mg/dL 0.1-0.5 ALKALINE PHOSPHATASE (BEAKER) (test xnun=782) 55 U/L 40-150 AST (SGOT) (BEAKER) (test ppxu=170) 71 U/L 5-34 ALT (SGPT) (BEAKER) (test emkc=059) 128 U/L 6-55 DIGOXIN [id number] 07:05:00* Test Item Value Reference Range Comments DIGOXIN LEVEL (BEAKER) (test vzbz=453) < ng/mL 0.8-2.0 [id number] 06:10:00* Test Item Value Reference Range Comments MAGNESIUM (BEAKER) (test akde=762) 1.6 mg/dL 1.6-2.6 BASIC METABOLIC [id number] 06:10:00* Test Item Value Reference Range Comments SODIUM (BEAKER) (test hekn=948) 130 meq/L 136-145 POTASSIUM (BEAKER) (test kafw=740) 3.8 meq/L 3.5-5.1 CHLORIDE (BEAKER) (test fsna=022) 101 meq/L 98-107 CO2 (BEAKER) (test lmjl=044) 22 meq/L 22-29 BLOOD UREA NITROGEN (BEAKER) (test nhhx=022) 17 mg/dL 7-21 CREATININE (BEAKER) (test wliy=574) 0.72 mg/dL 0.57-1.25 GLUCOSE RANDOM (BEAKER) (test srcf=293) 107 mg/dL 70-105 CALCIUM (BEAKER) (test wzrt=922) 9.1 mg/dL 8.4-10.2 EGFR (BEAKER) (test tccc=5180) 110 mL/min/1.73 sq m ESTIMATED GFR IS NOT ACCURATE CREATININE CLEARANCE IN PREDICTING GLOMERULAR FILTRATION RATE. ESTIMATED GFR IS NOT APPLICABLE FOR DIALYSIS PATIENTS. CBC (HEMOGRAM ONLY)2018-10-10 05:32:00* Test Item Value Reference Range Comments WHITE BLOOD CELL COUNT (BEAKER) (test jwdi=344) 10.4 K/ L 3.5-10.5 RED BLOOD CELL COUNT (BEAKER) (test aoqb=727) 3.86 M/ L 4.63-6.08 HEMOGLOBIN (BEAKER) (test nbwl=026) 13.1 GM/DL 13.7-17.5 HEMATOCRIT (BEAKER) (test nvtu=437) 39.1 % 40.1-51.0 MEAN CORPUSCULAR VOLUME (BEAKER) (test ddyj=130) 101.3 fL 79.0-92.2 MEAN CORPUSCULAR HEMOGLOBIN (BEAKER) (test rdmi=683) 33.9 pg 25.7-32.2 MEAN CORPUSCULAR HEMOGLOBIN CONC (BEAKER) (test dbta=306) 33.5 GM/DL 32.3-36.5 RED CELL DISTRIBUTION WIDTH (BEAKER) (test apcb=484) 13.6 % 11.6-14.4 PLATELET COUNT (BEAKER) (test zrwz=355) 156 K/CU MM 150-450 MEAN PLATELET VOLUME (BEAKER) (test lxxh=713) 12.1 fL 9.4-12.4 NUCLEATED RED BLOOD CELLS (BEAKER) (test gaaq=718) 0 /100 WBC 0-0 RAD, CHEST, 1 VIEW, NON [id number] 07:32:00Reason for exam:->HFShould this be performed at the bedside?->YesFINAL REPORT Chest one view AP 10/09/2018 7:31 AM CLINICAL INDICATION: HF COMPARISON: 10/08/2018 IMPRESSION: Cardiomediastinal contours are stable. There is moderately advanced pulmonary edema, worse when compared to the prior examination. There is a suspected small volume left pleural effusion with adjacent basilar atelectasis. Signed: Richard Parkerort Verified Date/Time: 10/09/2018 07:32:13 Reading Location: [address] Neuro Reading Room [id number] 05:29:00* Test Item Value Reference Range Comments MAGNESIUM (BEAKER) (test vbmy=739) 1.8 mg/dL 1.6-2.6 BASIC METABOLIC [id number] 05:29:00* Test Item Value Reference Range Comments SODIUM (BEAKER) (test vdpq=748) 129 meq/L 136-145 POTASSIUM (BEAKER) (test tgca=638) 3.8 meq/L 3.5-5.1 CHLORIDE (BEAKER) (test xegp=013) 101 meq/L 98-107 CO2 (BEAKER) (test huky=004) 21 meq/L 22-29 BLOOD UREA NITROGEN (BEAKER) (test cbpq=709) 20 mg/dL 7-21 CREATININE (BEAKER) (test wcgr=832) 0.72 mg/dL 0.57-1.25 GLUCOSE RANDOM (BEAKER) (test piib=158) 162 mg/dL 70-105 CALCIUM (BEAKER) (test yjxt=679) 8.5 mg/dL 8.4-10.2 EGFR (BEAKER) (test dxxk=5110) 110 mL/min/1.73 sq m ESTIMATED GFR IS NOT ACCURATE CREATININE CLEARANCE IN PREDICTING GLOMERULAR FILTRATION RATE. ESTIMATED GFR IS NOT APPLICABLE FOR DIALYSIS PATIENTS. CBC (HEMOGRAM ONLY)2018-10-09 03:53:00* Test Item Value Reference Range Comments WHITE BLOOD CELL COUNT (BEAKER) (test wuga=646) 8.8 K/ L 3.5-10.5 RED BLOOD CELL COUNT (BEAKER) (test dzfu=197) 3.74 M/ L 4.63-6.08 HEMOGLOBIN (BEAKER) (test fybz=658) 12.7 GM/DL 13.7-17.5 HEMATOCRIT (BEAKER) (test efsv=620) 38.0 % 40.1-51.0 MEAN CORPUSCULAR VOLUME (BEAKER) (test ldeh=190) 101.6 fL 79.0-92.2 MEAN CORPUSCULAR HEMOGLOBIN (BEAKER) (test upnl=308) 34.0 pg 25.7-32.2 MEAN CORPUSCULAR HEMOGLOBIN CONC (BEAKER) (test kkgv=866) 33.4 GM/DL 32.3-36.5 RED CELL DISTRIBUTION WIDTH (BEAKER) (test dorf=666) 13.6 % 11.6-14.4 PLATELET COUNT (BEAKER) (test akkp=699) 147 K/CU MM 150-450 MEAN PLATELET VOLUME (BEAKER) (test eyhw=386) 11.9 fL 9.4-12.4 NUCLEATED RED BLOOD CELLS (BEAKER) (test pjhk=119) 0 /100 WBC 0-0 POCT-GLUCOSE [id number] 00:33:00* Test Item Value Reference Range Comments POC-GLUCOSE METER (BEAKER) (test nhim=6241) 138 mg/dL 70-[address] [facility] [address] [facility] [address] ANTI-MITOCHONDRIAL AB, REFLEX TO [id number] 08:26:00* Test Item Value Reference Range Comments SCAN RESULT (test wajh=9004430) RAD, CHEST, 1 VIEW, NON [id number] 07:42:00Reason for exam:->HFShould this be performed at the bedside?->YesFINAL REPORT RAD, CHEST, 1 VIEW, NON DEPT INDICATION: HF COMPARISON: Prior day's exam FINDINGS: Portable frontal view of the chest. IMPRESSION: Support Lines: Unchanged positioning of right IJ Bokoshe-Nika catheter. Lungs and pleura: Mild persistent interstitial congestion. Trace left effusion. No right effusion. No pneumothorax.Heart and mediastinum: Stable contours. Additional findings: None. Signed: JR Palacios Robert MDReport Verified Date/Time: 10/08/2018 07:42:27 Reading Location: [address] Neuro Reading Room [id number] 06:52:00* Test Item Value Reference Range Comments PARTIAL THROMBOPLASTIN TIME (BEAKER) (test zzbq=621) 66.3 seconds 22.5-36.0 BLOOD GAS, [id number] 06:47:00* Test Item Value Reference Range Comments PH ARTERIAL (BEAKER) (test dozg=297) 7.49 7.35-7.45 PCO2 ARTERIAL (BEAKER) (test bvci=796) 35 mmHg 35-45 PO2 ARTERIAL (BEAKER) (test xgve=351) 163 mmHg 80-90 O2 SATURATION ARTERIAL (BEAKER) (test oaxr=430) 99.2 % 96.0-97.0 HCO3 ARTERIAL (BEAKER) (test nzuo=183) 26 mmol/L 21-29 BASE EXCESS ARTERIAL (BEAKER) (test aryd=145) 2.9 mmol/L -2.0-3.0 PATIENT TEMPERATURE (BEAKER) (test xayd=1431) 36.4 C FIO2 (BEAKER) (test plmy=5523) 28.0 % BLOOD GAS, [id number] 06:47:00* Test Item Value Reference Range Comments PH VENOUS (BEAKER) (test ofix=169) 7.42 7.32-7.42 PCO2 VENOUS (BEAKER) (test yyzn=705) 47 mmHg 41-51 PO2 VENOUS (BEAKER) (test serk=715) 31 mmHg 25-40 O2 SATURATION VENOUS (BEAKER) (test xjmo=311) 60.6 % 40.0-70.0 HCO3 VENOUS (BEAKER) (test mwnz=550) 30 mmol/L 21-29 BASE EXCESS VENOUS (BEAKER) (test oady=900) 4.4 mmol/L -2.0-3.0 PATIENT TEMPERATURE (BEAKER) (test xfip=4923) 37.0 C FIO2 (BEAKER) (test gfix=5673) 21.0 % From the distal port of PA cath.OXYGEN SATURATION, [id number] 06:36:00* Test Item Value Reference Range Comments O2 SATURATION (MEASURED) (BEAKER) (test qnye=6825) 63.0 % CBC (HEMOGRAM ONLY)2018-10-08 06:34:00* Test Item Value Reference Range Comments WHITE BLOOD CELL COUNT (BEAKER) (test eoxv=042) 9.2 K/ L 3.5-10.5 RED BLOOD CELL COUNT (BEAKER) (test qeem=020) 3.88 M/ L 4.63-6.08 HEMOGLOBIN (BEAKER) (test hmmt=466) 13.0 GM/DL 13.7-17.5 HEMATOCRIT (BEAKER) (test nrgh=951) 39.1 % 40.1-51.0 MEAN CORPUSCULAR VOLUME (BEAKER) (test tdjo=303) 100.8 fL 79.0-92.2 MEAN CORPUSCULAR HEMOGLOBIN (BEAKER) (test kfel=369) 33.5 pg 25.7-32.2 MEAN CORPUSCULAR HEMOGLOBIN CONC (BEAKER) (test zwns=853) 33.2 GM/DL 32.3-36.5 RED CELL DISTRIBUTION WIDTH (BEAKER) (test osqg=165) 13.7 % 11.6-14.4 PLATELET COUNT (BEAKER) (test rprk=942) 134 K/CU MM 150-450 MEAN PLATELET VOLUME (BEAKER) (test hoiz=872) 12.3 fL 9.4-12.4 NUCLEATED RED BLOOD CELLS (BEAKER) (test achh=008) 0 /100 WBC 0-0 CT, CTA, [id number] 18:01:00Addendum BeginsREPORT STATUS:A Addendum: I reviewed the nonvascular findings of this examination and concur with Dr. Frost's report. There is an approximately 10 mm slightly irregular nodule in the left upper lobe near the apex that is indeterminate. Follow-up is recommended, that could take the form of PET scanning. Bilateral small pleural effusions with left basilar consolidative changes consistent with atelectasis. Signed: Elsie Grijalva MDReport Verified Date/Time: 10/07/2018 18:01:45 Reading Location: [place] [address] Angio Body Reading RoomAddendum EndsFINAL REPORT CT angiography of the entire vascular tree, September 2018 INDICATION: This is a 67 year old male with diagnosis of peripheral arterial disease presents for assessment. TECHNIQUE: Spiral acquisition before and during intravenous contrast administration using a Yesy multidetector CT scanner. Images were obtained before and during the dynamic passage of intravenous contrast material. Multi-planar 3-D volume-r endering reconstruction was performed using an independent workstation TaxJar by the interpreting physician as well as the 3-D specialist for optimal vis ualization of the thoracoabdominal aorta, the pelvic arteries as well as its pro ximal branches. Please refer to the contrast sheet scanned in the EPIC system fo r the amount and route of contrast given. This exam was performed according to o ur departmental dose-optimisation programme, which includes automated exposure c ontrol, adjustment of the mA and/or kV according to patient size and/or use of i terative reconstruction technique. Dose modulation, iterative reconstruction, an d/or weight based adjustment of the mA/kV was utilized to reduce the radiation d ose to as low as reasonably achievable. FINDINGS: VASCULAR: The central pulmona ry artery is prominent. No evidence of central pulmonary artery embolism is iden tified. A Bokoshe-Nika catheter is seen, with tip in the mid left pulmonary artery. The cardiac chambers demonstrate normal atrioventricular and ventriculoarterial concordance, and systemic and pulmonary venous return. Left ventricular enlarge ment is identified. Patient already has cardiac MRI examination performed. Refer to formal report for details. No further comment will be made. Diffuse coronary artery calcification is seen in all three coronary territories with normal cor onary artery origins. The thoracic aorta is normal in course and calibre. Scatte red noncalcific atherosclerosis seen in the ascending thoracic aorta. The transv erse arch and descending thoracic aorta has mild calcific and noncalcific athero sclerosis identified. No acute aortic pathology is seen and no dissection or con tained rupture is noted. Arch vessel branching pattern is normal. Already docume nted in prior MRI report, substantial atherosclerosis is identified in the proxi mal 3 cm of the left subclavian artery, predominantly noncalcific atherosclerosi s. At image 52, severe discrete focal stenosis is identified in the left subclav camilla artery. . Remainder of the left subclavian artery seen to well enhanced by c ontrast. The left vertebral artery is well seen and is a larger caliber than the right vertebral artery. The left axillary artery is patent. The right subclavian artery and the right axillary artery is also patent. In the abdominal aorta, c ircumferential noncalcific atherosclerosis seen with scattered calcific atherosc lerosis identified. No aneurysmal dilation is noted. The coeliac axis is patent. Substantial noncalcific atherosclerosis identified in the mid SMA, suggesting m oderate lesion. Significant calcification is seen at the ostium of the BEATRIS makin g accurate assessment limited. Remainder of the BEATRIS is enhanced by contrast that may be due to retrograde filling by surrounding collaterals. The left and the r ight common iliac arteries are patent though moderate calcific atherosclerosis i s seen. 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 The le ft common femoral artery is seen to fill by contrast indicating reconstitution b y surrounding collaterals. However, the left SFA has severe diffuse disease/subt otal occlusion identified. The left popliteal artery is reconstituted by surrou nding collaterals and it is well enhanced by contrast and is widely patent. In t he left lower extremity, the left anterior tibial artery is widely patent and th e dorsalis pedis artery is well seen. Mild to moderate calcification is seen in the left tibioperoneal trunk. The left peroneal artery is well enhanced by contr ast. The left posterior tibial artery is widely patent and the plantar arch is w ell seen distally. In the right, the right external iliac artery is not filled b y contrast and the fossa stent is also occluded. The right common femoral artery is essentially occluded. The right SFA is essentially occluded. The right profu nda system is unremarkable. There is reconstitution identified at the level of t he right popliteal artery and remainder of the right popliteal artery is well en hanced by contrast. In the right lower extremity, moderate calcification is seen in the right tibioperoneal trunk. The right peroneal artery is well enhanced by contrast. The right anterior and posterior tibial artery is well enhanced by co ntrast and the plantar arch and the dorsalis pedis are also well seen. There is no evidence of acute aortic pathology, specifically, there is no dissection, int ramural hematoma, or contained rupture. Quantitative dimensions of the thoracoa bdominal aorta are as follows: 3.5 x 3.4 cm at the sinuses of Valsalva (the sino -tubular junction is preserved); 3.0 cm at the proximal ascending thoracic aorta ; 3.1 cm at the mid ascending aorta; 2.7 cm at the distal ascending aorta; 2.4 cm at the mid transverse arch; 2.2 cm at the proximal descending aorta; 2.1 cm at the mid descending aorta; 1.9 cm at the diaphragmatic hiatus. In the abdomen, the aorta measures 1.7 cm at the mesenteric level; 1.7 cm at the renal level; a nd approximately 1.4 cm at the aortic bifurcation. NON-VASCULAR: The visualised thyroid gland appears grossly unremarkable.. The chest wall and mediastinum ap pear unremarkable. No significant adenopathy is identified except for some small lymph nodes The lung windows, no obvious endobronchial lesion is seen, however, bibasal pleural effusions identified with associated atelectatic changes. Yves eptal emphysematous changes are seen near the apex. A noncalcified nodular opaci ty is identified in the left upper lobe, with somewhat irregular margin, measure s approximately 8 x 9 mm in diameter. No prior examination is available for axel holm. This is an abnormal finding. In the abdomen, the liver and spleen appear s unremarkable. The liver edge is smooth. No abnormal enhancing structure is jess ntified. The gallbladder appears unremarkable. The adrenal glands appears unrem arkable. The pancreas has no gross abnormality identified. No acute renal patho logy is seen and no hydronephrosis or perirenal fluid collections identified. Flash wel is not well assessed by CT angiography as enteric contrast is not given. No obvious bowel dilation is identified. Colonic diverticulum is seen in the distal colon with no inflammatory changes identified. The prostate gland is mildly pr ominent. The bladder is dilated. No significant retroperitoneal adenopathy is id entified. No free air or free fluid seen abdomen and pelvis. In the bony windows , no acute bony pathology is seen and some degenerative changes are noted. CONCL USIONS: 1. No acute pathology is identified in the entire thoracoabdominal aort a, however, in the descending thoracic aorta, mild calcific and noncalcific athe rosclerosis identified. In the infrarenal abdominal aorta, jolc-kn-imsooaej circ umferential calcific and noncalcific atherosclerosis also identified. No acute a ortic pathology is identified. Quantitative dimensions of the thoracoabdominal a vee are as described above. 2. The following major abnormalities are noted: D iffuse atherosclerosis identified in the proximal 3 cm of the left subclavian ar annabella leading to significant discrete stenosis. Remainder of the left subclavian artery and the left axillary artery are widely patent. The right subclavian randal ry and the right axillary artery are widely patent. Moderate atherosclerosis se en in the SMA, and there is likely moderate atherosclerosis seen at takeoff of t he left and the right renal arteries. The left external iliac artery is occluded . Severe disease/subtotal occlusion is seen in the entire left SFA with reconsti tution by surrounding collaterals in the left popliteal artery. Stent is seen i n the right external iliac artery extending to the right common femoral artery t hat is occluded. The right SFA is essentially occluded with reconstitution by tirado rrounding collaterals at the right popliteal artery level. 3. Diffuse coronary artery calcification. Left ventricular enlargement is identified already been de tailed in MRI examination. 4. Bibasal pleural effusion. No evidence of central pulmonary artery embolism though the central pulmonary artery is prominent. A S wan-Nika catheter is identified. A 9-10 mm nodule is seen in the left upper lo be. This should be followed with short-term examination, versus direct tissue sa mpling, versus PET scan. An addendum will be dictated thereafter. 5. Other find ings as described above. 6. An addendum will be dictated by the Lost Charge Card Clerk Radi ologist regarding the nonvascular findings. Signed: Clemente Frost MDReport V erified Date/Time: 10/07/2018 15:50:54 Reading Location: [place] [address] Cardiology MRI , CTA AAA, W/ ESTER.EXT.[id number] 18:01:00Addendum BeginsREPORT STATUS:A Addendum: I reviewed the nonvascular findings of this examination and concur with Dr. Frost's report. There is an approximately 10 mm slightly irregular nodule in the left upper lobe near the apex that is indeterminate. Follow-up is recommended, that could take the form of PET scanning. Bilateral small pleural effusions with left basilar consolidative changes consistent with atelectasis. Signed: Olga Elsie MDReport Verified Date/Time: 10/07/2018 18:01:45 Reading Location: [place] [address] Angio Body Reading RoomAddendum EndsFINAL REPORT CT angiography of the entire vascular tree, September 2018 INDICATION: This is a 67 year old male with diagnosis of peripheral arterial disease presents for assessment. TECHN IQUE: Spiral acquisition before and during intravenous contrast administration u sing a Yesy multidetector CT scanner. Images were obtained before and during the dynamic passage of intravenous contrast material. Multi-planar 3-D volume-r endering reconstruction was performed using an independent workstation [employer]ar by the interpreting physician as well as the 3-D specialist for optimal vis ualization of the thoracoabdominal aorta, the pelvic arteries as well as its pro ximal branches. Please refer to the contrast sheet scanned in the EPIC system fo r the amount and route of contrast given. This exam was performed according to o departmental dose-optimisation programme, which includes automated exposure c ontrol, adjustment of the mA and/or kV according to patient size and/or use of i terative reconstruction technique. Dose modulation, iterative reconstruction, an d/or weight based adjustment of the mA/kV was utilized to reduce the radiation d ose to as low as reasonably achievable. FINDINGS: VASCULAR: The central pulmona ry artery is prominent. No evidence of central pulmonary artery embolism is iden tified. A Bokoshe-Nika catheter is seen, with tip in the mid left pulmonary artery. The cardiac chambers demonstrate normal atrioventricular and ventriculoarterial concordance, and systemic and pulmonary venous return. Left ventricular enlarge ment is identified. Patient already has cardiac MRI examination performed. Refer to formal report for details. No further comment will be made. Diffuse coronary artery calcification is seen in all three coronary territories with normal cor onary artery origins. The thoracic aorta is normal in course and calibre. Scatte red noncalcific atherosclerosis seen in the ascending thoracic aorta. The transv erse arch and descending thoracic aorta has mild calcific and noncalcific athero sclerosis identified. No acute aortic pathology is seen and no dissection or con tained rupture is noted. Arch vessel branching pattern is normal. Already docume nted in prior MRI report, substantial atherosclerosis is identified in the proxi mal 3 cm of the left subclavian artery, predominantly noncalcific atherosclerosi s. At image 52, severe discrete focal stenosis is identified in the left subclav camilla artery. . Remainder of the left subclavian artery seen to well enhanced by c ontrast. The left vertebral artery is well seen and is a larger caliber than the right vertebral artery. The left axillary artery is patent. The right subclavian artery and the right axillary artery is also patent. In the abdominal aorta, c ircumferential noncalcific atherosclerosis seen with scattered calcific atherosc lerosis identified. No aneurysmal dilation is noted. The coeliac axis is patent. Substantial noncalcific atherosclerosis identified in the mid SMA, suggesting m oderate lesion. Significant calcification is seen at the ostium of the BEATRIS makin g accurate assessment limited. Remainder of the BEATRIS is enhanced by contrast that may be due to retrograde filling by surrounding collaterals. The left and the r ight common iliac arteries are patent though moderate calcific atherosclerosis i s seen. 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 The le ft common femoral artery is seen to fill by contrast indicating reconstitution b y surrounding collaterals. However, the left SFA has severe diffuse disease/subt otal occlusion identified. The left popliteal artery is reconstituted by surrou nding collaterals and it is well enhanced by contrast and is widely patent. In t he left lower extremity, the left anterior tibial artery is widely patent and th e dorsalis pedis artery is well seen. Mild to moderate calcification is seen in the left tibioperoneal trunk. The left peroneal artery is well enhanced by contr ast. The left posterior tibial artery is widely patent and the plantar arch is w ell seen distally. In the right, the right external iliac artery is not filled b y contrast and the fossa stent is also occluded. The right common femoral artery is essentially occluded. The right SFA is essentially occluded. The right profu nda system is unremarkable. There is reconstitution identified at the level of t he right popliteal artery and remainder of the right popliteal artery is well en hanced by contrast. In the right lower extremity, moderate calcification is seen in the right tibioperoneal trunk. The right peroneal artery is well enhanced by contrast. The right anterior and posterior tibial artery is well enhanced by co ntrast and the plantar arch and the dorsalis pedis are also well seen. There is no evidence of acute aortic pathology, specifically, there is no dissection, int ramural hematoma, or contained rupture. Quantitative dimensions of the thoracoa bdominal aorta are as follows: 3.5 x 3.4 cm at the sinuses of Valsalva (the sino -tubular junction is preserved); 3.0 cm at the proximal ascending thoracic aorta ; 3.1 cm at the mid ascending aorta; 2.7 cm at the distal ascending aorta; 2.4 cm at the mid transverse arch; 2.2 cm at the proximal descending aorta; 2.1 cm at the mid descending aorta; 1.9 cm at the diaphragmatic hiatus. In the abdomen, the aorta measures 1.7 cm at the mesenteric level; 1.7 cm at the renal level; a nd approximately 1.4 cm at the aortic bifurcation. NON-VASCULAR: The visualised thyroid gland appears grossly unremarkable.. The chest wall and mediastinum ap pear unremarkable. No significant adenopathy is identified except for some small lymph nodes The lung windows, no obvious endobronchial lesion is seen, however, bibasal pleural effusions identified with associated atelectatic changes. Yves eptal emphysematous changes are seen near the apex. A noncalcified nodular opaci ty is identified in the left upper lobe, with somewhat irregular margin, measure s approximately 8 x 9 mm in diameter. No prior examination is available for axel holm. This is an abnormal finding. In the abdomen, the liver and spleen appear s unremarkable. The liver edge is smooth. No abnormal enhancing structure is jess ntified. The gallbladder appears unremarkable. The adrenal glands appears unrem arkable. The pancreas has no gross abnormality identified. No acute renal patho logy is seen and no hydronephrosis or perirenal fluid collections identified. Flash wel is not well assessed by CT angiography as enteric contrast is not given. No obvious bowel dilation is identified. Colonic diverticulum is seen in the distal colon with no inflammatory changes identified. The prostate gland is mildly pr ominent. The bladder is dilated. No significant retroperitoneal adenopathy is id entified. No free air or free fluid seen abdomen and pelvis. In the bony windows , no acute bony pathology is seen and some degenerative changes are noted. CONCL USIONS: 1. No acute pathology is identified in the entire thoracoabdominal aort a, however, in the descending thoracic aorta, mild calcific and noncalcific athe rosclerosis identified. In the infrarenal abdominal aorta, kzlu-nr-zklsncyt circ umferential calcific and noncalcific atherosclerosis also identified. No acute a ortic pathology is identified. Quantitative dimensions of the thoracoabdominal a vee are as described above. 2. The following major abnormalities are noted: D iffuse atherosclerosis identified in the proximal 3 cm of the left subclavian ar annabella leading to significant discrete stenosis. Remainder of the left subclavian artery and the left axillary artery are widely patent. The right subclavian randal ry and the right axillary artery are widely patent. Moderate atherosclerosis se en in the SMA, and there is likely moderate atherosclerosis seen at takeoff of t he left and the right renal arteries. The left external iliac artery is occluded . Severe disease/subtotal occlusion is seen in the entire left SFA with reconsti tution by surrounding collaterals in the left popliteal artery. Stent is seen i n the right external iliac artery extending to the right common femoral artery t hat is occluded. The right SFA is essentially occluded with reconstitution by tirado rrounding collaterals at the right popliteal artery level. 3. Diffuse coronary artery calcification. Left ventricular enlargement is identified already been de tailed in MRI examination. 4. Bibasal pleural effusion. No evidence of central pulmonary artery embolism though the central pulmonary artery is prominent. A S wan-Nika catheter is identified. A 9-10 mm nodule is seen in the left upper lo be. This should be followed with short-term examination, versus direct tissue sa mpling, versus PET scan. An addendum will be dictated thereafter. 5. Other find ings as described above. 6. An addendum will be dictated by the Lost Charge Card Clerk Radi ologist regarding the nonvascular findings. Signed: Clemente Frost MDReport V erified Date/Time: 10/07/2018 15:50:54 Reading Location: [place] [address] Cardiology MRI [id number] 17:20:00* Test Item Value Reference Range Comments MAGNESIUM (BEAKER) (test lnwe=978) 2.6 mg/dL 1.6-2.6 Specimen moderately hemolyzed Check Serum Potassium level 2 hours after oral potassium replacement completed o r 30 min after intravenous potassium replacement.[id number] 17:20:00* Test Item Value Reference Range Comments POTASSIUM (BEAKER) (test qowe=906) 4.8 meq/L 3.5-5.1 Specimen moderately hemolyzed Check Serum Potassium level 2 hours after oral potassium replacement completed o r 30 min after intravenous potassium replacement.[id number] 14:31:00* Test Item Value Reference Range Comments PARTIAL THROMBOPLASTIN TIME (BEAKER) (test pwjk=916) 93.1 seconds 22.5-36.0 U/S, ABDOMINAL, [id number] 08:49:00Please do with dopplerReason for exam:->presumptive cirrhosisFINAL REPORT TECHNIQUE: Grayscale ultrasound of the abdomen [...] The hepatic veins and confluence are patent. BILIARY:Gallbladder: Mobile nonshadowing echogenic structure within the gallbladder, stone versus tumefactive sludge. No gallbladder wall thickening, pericholecystic fluid, or distention. Negative sonographic Berg sign.Common bile duct measures 0.4 cm, within normal [...] are patent. OTHER FINDINGS: Bilateral pleural effusions. IMPRESSION:The liver is not overtly cirrhotic. No focal liver lesion. Unremarka ble Doppler evaluation of the hepatic and portal vasculature. Cholelithiasis isabel kevin gallbladder sludge. Signed: Jude Post MDReport Verified Date/Time: 08:49:04 Reading Location: [facility] [id number] Ultrasound Reading Room Elec tronically signed by: JUDE POST MD on 10/07/2018 08:49 AM APTT 2018-10-07 07:04:00* Test Item Value Reference Range Comments PARTIAL THROMBOPLASTIN TIME (BEAKER) (test jicm=394) 92.8 seconds 22.5-36.0 [id number] 06:47:00* Test Item Value Reference Range Comments MAGNESIUM (BEAKER) (test sgvq=466) 2.0 mg/dL 1.6-2.6 Specimen slightly hemolyzed BASIC METABOLIC [id number] 05:51:00* Test Item Value Reference Range Comments SODIUM (BEAKER) (test iidp=503) 130 meq/L 136-145 POTASSIUM (BEAKER) (test jgsr=713) 3.9 meq/L 3.5-5.1 CHLORIDE (BEAKER) (test uapq=801) 97 meq/L 98-107 CO2 (BEAKER) (test cgdh=227) 26 meq/L 22-29 BLOOD UREA NITROGEN (BEAKER) (test stdo=548) 15 mg/dL 7-21 CREATININE (BEAKER) (test ycki=196) 0.70 mg/dL 0.57-1.25 GLUCOSE RANDOM (BEAKER) (test mtma=241) 111 mg/dL 70-105 CALCIUM (BEAKER) (test weug=532) 9.0 mg/dL 8.4-10.2 EGFR (BEAKER) (test bsgi=7737) 113 mL/min/1.73 sq m ESTIMATED GFR IS NOT ACCURATE CREATININE CLEARANCE IN PREDICTING GLOMERULAR FILTRATION RATE. ESTIMATED GFR IS NOT APPLICABLE FOR DIALYSIS PATIENTS. BLOOD GAS, [id number] 05:49:00* Test Item Value Reference Range Comments PH VENOUS (BEAKER) (test ykyy=671) 7.47 7.32-7.42 PCO2 VENOUS (BEAKER) (test juzi=852) 31 mmHg 41-51 PO2 VENOUS (BEAKER) (test mrcm=233) 149 mmHg 25-40 O2 SATURATION VENOUS (BEAKER) (test gtds=685) 99.1 % 40.0-70.0 HCO3 VENOUS (BEAKER) (test eyrk=605) 22 mmol/L 21-29 BASE EXCESS VENOUS (BEAKER) (test wnlg=788) -0.7 mmol/L -2.0-3.0 PATIENT TEMPERATURE (BEAKER) (test vwmw=5133) 37.0 C FIO2 (BEAKER) (test iwme=1172) 21.0 % From the distal port of PA cath.PROTHROMBIN [id number] 05:45:00* Test Item Value Reference Range Comments PROTIME (BEAKER) (test ymzo=133) 14.0 seconds 11.7-14.7 INR (BEAKER) (test sovy=873) 1.1 <=5.9 RECOMMENDED COUMADIN/WARFARIN INR THERAPY RANGESSTANDARD DOSE: 2.0 - 3.0 Inclu jose: PROPHYLAXIS for venous thrombosis, systemic embolization; TREATMENT for ladonna ous thrombosis and/or pulmonary embolus.HIGH RISK: Target INR is 2.5-3.5 for pat ients with mechanical heart valves.OXYGEN SATURATION, [id number] 05:45:00* Test Item Value Reference Range Comments O2 SATURATION (MEASURED) (BEAKER) (test hete=7198) 69.2 % BLOOD GAS, [id number] 05:41:00* Test Item Value Reference Range Comments PH ARTERIAL (BEAKER) (test csem=820) 7.48 7.35-7.45 PCO2 ARTERIAL (BEAKER) (test wxfl=561) 37 mmHg 35-45 PO2 ARTERIAL (BEAKER) (test zoas=367) 118 mmHg 80-90 O2 SATURATION ARTERIAL (BEAKER) (test mtqi=849) 98.5 % 96.0-97.0 HCO3 ARTERIAL (BEAKER) (test irjd=548) 27 mmol/L 21-29 BASE EXCESS ARTERIAL (BEAKER) (test dsfc=430) 3.2 mmol/L -2.0-3.0 PATIENT TEMPERATURE (BEAKER) (test cszv=2994) 37.1 C FIO2 (BEAKER) (test nozy=6742) 32.0 % CBC (HEMOGRAM ONLY)2018-10-07 05:26:00* Test Item Value Reference Range Comments WHITE BLOOD CELL COUNT (BEAKER) (test oksh=668) 10.5 K/ L 3.5-10.5 RED BLOOD CELL COUNT (BEAKER) (test rajw=362) 4.35 M/ L 4.63-6.08 HEMOGLOBIN (BEAKER) (test mybe=823) 14.3 GM/DL 13.7-17.5 HEMATOCRIT (BEAKER) (test fmnh=454) 44.0 % 40.1-51.0 MEAN CORPUSCULAR VOLUME (BEAKER) (test vtvy=802) 101.1 fL 79.0-92.2 MEAN CORPUSCULAR HEMOGLOBIN (BEAKER) (test mnwz=529) 32.9 pg 25.7-32.2 MEAN CORPUSCULAR HEMOGLOBIN CONC (BEAKER) (test irwp=663) 32.5 GM/DL 32.3-36.5 RED CELL DISTRIBUTION WIDTH (BEAKER) (test lxbb=365) 13.9 % 11.6-14.4 PLATELET COUNT (BEAKER) (test gqhm=804) 155 K/CU MM 150-450 MEAN PLATELET VOLUME (BEAKER) (test brei=386) 11.7 fL 9.4-12.4 NUCLEATED RED BLOOD CELLS (BEAKER) (test aene=265) 0 /100 WBC 0-0 RAD, CHEST, 1 VIEW, NON [id number] 05:04:00Reason for exam:->HFShould this be performed at the bedside?->YesFINAL REPORT RAD, CHEST, 1 VIEW, NON DEPT INDICATION: HF COMPARISON: Prior day's exam FINDINGS: Portable frontal view of the chest. IMPRESSION: Support Lines: Bokoshe-Nika catheter is not significantly changed in position. Multiple external leads are redemonstrated. Lungs and pleura: Slight interval increased interstitial opacities, likely mild interstitial pulmonary edema. Unchanged minimal left retrocardiac atelectasis. No pneumothorax.Heart and mediastinum: Stable contours. Stable surgical changes.Additional findings: None. Signed: Maxine Malagon MDReport Verified Date/Time: 10/07/2018 05:04:58 Reading Location: [address] Neuro Reading Room EN SATURATION, [id number] 02:07:00* Test Item Value Reference Range Comments O2 SATURATION (MEASURED) (BEAKER) (test qzaj=8812) 65.7 % TROPONIN [id number] 01:45:00* Test Item Value Reference Range Comments TROPONIN I (BEAKER) (test ecov=791) 1.32 ng/mL 0.00-0.03 Troponin I (TnI) levels must be interpreted in the context of the presenting sym ptoms and the clinical findings. Elevated TnI levels indicate myocardial damage, but are not specific for ischemic heart disease. Elevated TnI levels are seen in patients with other cardiac conditions (including myocarditis and congestive h eart failure), and slight TnI elevations occur in patients with other conditions , including sepsis, renal failure, acidosis, acute neurological disease, and per sistent tachyarrhythmia.LACTIC ACID, ARTERIAL, WHOLE [id number] 01:32:00* Test Item Value Reference Range Comments LACTATE BLOOD ARTERIAL (2) (BEAKER) (test flpy=2197) 1.0 mmol/L 0.5-2.2 [id number] 00:21:00* Test Item Value Reference Range Comments PARTIAL THROMBOPLASTIN TIME (BEAKER) (test alyg=105) 58.6 seconds 22.5-36.0 [id number] 17:46:00* Test Item Value Reference Range Comments PROTIME (BEAKER) (test tlja=934) 14.5 seconds 11.7-14.7 INR (BEAKER) (test hhmz=533) 1.1 <=5.9 PARTIAL THROMBOPLASTIN TIME (BEAKER) (test tctb=935) 34.3 seconds 22.5-36.0 RECOMMENDED COUMADIN/WARFARIN INR THERAPY RANGESSTANDARD DOSE: 2.0 - 3.0 Inclu jose: PROPHYLAXIS for venous thrombosis, systemic embolization; TREATMENT for ladonna ous thrombosis and/or pulmonary embolus.HIGH RISK: Target INR is 2.5-3.5 for pat ients with mechanical heart valves.T4, [id number] 12:42:00* Test Item Value Reference Range Comments FREE T4 (BEAKER) (test guaw=772) 0.93 ng/dL 0.70-1.48 TSH/FREE T4 IF [id number] 11:25:00* Test Item Value Reference Range Comments THYROID STIMULATING HORMONE (BEAKER) (test nkxr=169) 6.87 uIU/mL 0.35-4.94 BLOOD GAS, [id number] 10:50:00* Test Item Value Reference Range Comments PH VENOUS (BEAKER) (test ddzv=368) 7.46 7.32-7.42 PCO2 VENOUS (BEAKER) (test azmv=954) 46 mmHg 41-51 PO2 VENOUS (BEAKER) (test hvzu=281) 35 mmHg 25-40 O2 SATURATION VENOUS (BEAKER) (test xidz=399) 69.6 % 40.0-70.0 HCO3 VENOUS (BEAKER) (test whxg=638) 32 mmol/L 21-29 BASE EXCESS VENOUS (BEAKER) (test fslg=238) 6.6 mmol/L -2.0-3.0 PATIENT TEMPERATURE (BEAKER) (test afrp=7591) 37.0 C FIO2 (BEAKER) (test fltj=0599) 21.0 % From the distal port of PA cath.BLOOD GAS, [id number] 10:47:00* Test Item Value Reference Range Comments PH ARTERIAL (BEAKER) (test wfte=857) 7.49 7.35-7.45 PCO2 ARTERIAL (BEAKER) (test gcfp=638) 39 mmHg 35-45 PO2 ARTERIAL (BEAKER) (test obhn=944) 100 mmHg 80-90 O2 SATURATION ARTERIAL (BEAKER) (test eygl=531) 98.0 % 96.0-97.0 HCO3 ARTERIAL (BEAKER) (test zfyu=367) 29 mmol/L 21-29 BASE EXCESS ARTERIAL (BEAKER) (test ptig=985) 5.3 mmol/L -2.0-3.0 PATIENT TEMPERATURE (BEAKER) (test cxgw=6786) 37.0 C FIO2 (BEAKER) (test kftv=2999) 21.0 % [id number] 10:36:00* Test Item Value Reference Range Comments PARTIAL THROMBOPLASTIN TIME (BEAKER) (test pdle=982) 30.6 seconds 22.5-36.0 Prior to initiating heparinPLATELET [id number] 10:27:00* Test Item Value Reference Range Comments PLATELET COUNT (BEAKER) (test ykuq=402) 161 K/CU MM 150-450 [id number] 06:26:00* Test Item Value Reference Range Comments MAGNESIUM (BEAKER) (test gyus=929) 1.6 mg/dL 1.6-2.6 BASIC METABOLIC [id number] 06:26:00* Test Item Value Reference Range Comments SODIUM (BEAKER) (test uyds=265) 133 meq/L 136-145 POTASSIUM (BEAKER) (test lpsc=605) 3.9 meq/L 3.5-5.1 CHLORIDE (BEAKER) (test exww=253) 100 meq/L 98-107 CO2 (BEAKER) (test yneo=965) 28 meq/L 22-29 BLOOD UREA NITROGEN (BEAKER) (test hesj=558) 16 mg/dL 7-21 CREATININE (BEAKER) (test hkka=412) 0.68 mg/dL 0.57-1.25 GLUCOSE RANDOM (BEAKER) (test kawz=183) 110 mg/dL 70-105 CALCIUM (BEAKER) (test swqv=889) 9.0 mg/dL 8.4-10.2 EGFR (BEAKER) (test iskj=7616) 117 mL/min/1.73 sq m ESTIMATED GFR IS NOT ACCURATE CREATININE CLEARANCE IN PREDICTING GLOMERULAR FILTRATION RATE. ESTIMATED GFR IS NOT APPLICABLE FOR DIALYSIS PATIENTS. CBC W/PLT COUNT & AUTO [id number] 06:05:00* Test Item Value Reference Range Comments WHITE BLOOD CELL COUNT (BEAKER) (test pwsb=922) 8.7 K/ L 3.5-10.5 RED BLOOD CELL COUNT (BEAKER) (test oafo=448) 4.30 M/ L 4.63-6.08 HEMOGLOBIN (BEAKER) (test seaq=428) 14.6 GM/DL 13.7-17.5 HEMATOCRIT (BEAKER) (test dzyc=254) 44.4 % 40.1-51.0 MEAN CORPUSCULAR VOLUME (BEAKER) (test yujn=220) 103.3 fL 79.0-92.2 MEAN CORPUSCULAR HEMOGLOBIN (BEAKER) (test nupv=843) 34.0 pg 25.7-32.2 MEAN CORPUSCULAR HEMOGLOBIN CONC (BEAKER) (test plyf=477) 32.9 GM/DL 32.3-36.5 RED CELL DISTRIBUTION WIDTH (BEAKER) (test zjfo=452) 14.1 % 11.6-14.4 PLATELET COUNT (BEAKER) (test mila=619) 143 K/CU MM 150-450 MEAN PLATELET VOLUME (BEAKER) (test qjbl=161) 11.7 fL 9.4-12.4 NUCLEATED RED BLOOD CELLS (BEAKER) (test qgpo=643) 0 /100 WBC 0-0 NEUTROPHILS RELATIVE PERCENT (BEAKER) (test tewh=190) 60 % LYMPHOCYTES RELATIVE PERCENT (BEAKER) (test xmlk=677) 20 % MONOCYTES RELATIVE PERCENT (BEAKER) (test dqlg=587) 16 % EOSINOPHILS RELATIVE PERCENT (BEAKER) (test rxnw=927) 2 % BASOPHILS RELATIVE PERCENT (BEAKER) (test sdqz=773) 1 % NEUTROPHILS ABSOLUTE COUNT (BEAKER) (test mhxw=287) 5.23 K/ L 1.78-5.38 LYMPHOCYTES ABSOLUTE COUNT (BEAKER) (test esnl=022) 1.72 K/ L 1.32-3.57 MONOCYTES ABSOLUTE COUNT (BEAKER) (test horz=929) 1.41 K/ L 0.30-0.82 EOSINOPHILS ABSOLUTE COUNT (BEAKER) (test wvlo=890) 0.16 K/ L 0.04-0.54 BASOPHILS ABSOLUTE COUNT (BEAKER) (test oode=721) 0.04 K/ L 0.01-0.08 IMMATURE GRANULOCYTES-RELATIVE PERCENT (BEAKER) (test bjiw=9092) 1 % 0-1 OXYGEN SATURATION, [id number] 05:54:00* Test Item Value Reference Range Comments O2 SATURATION (MEASURED) (BEAKER) (test ozxd=1268) 78.1 % ANTI-NUCLEAR ANTIBODY (AURY)2018-10-06 05:42:00* Test Item Value Reference Range Comments ANTI-NUCLEAR ANTIBODY (AURY) (BEAKER) (test seha=431) Negative Negative Test performed by IFA method.Test performed by IFA method.RAD, CHEST, 1 VIEW, NON [id number] 23:17:00Reason for exam:->swan readjustmentShould this be performed at the bedside?->YesFINAL REPORT Comparison: 09/29/2018 at 9:15 PM TECHNIQUE: Single view of the chest FINDINGS: Bokoshe-Nika catheter has been advanced. Tip now projects over the main pulmonary artery. No other significant change. Signed: Julian Carbone MDReport Verified Date/Time: 10/05/2018 23:17:42 Reading Location: [facility] Reading Room , CHEST, 1 VIEW, NON [id number] 21:38:00Reason for exam:->swan positionShould this be performed at the bedside?->YesFINAL REPORT Comparison: 09/25/2018 at 12:58 PM TECHNIQUE: Single view of the chest FINDINGS: Bokoshe-Nika catheter has retracted. Tip now projects either in the right atrium, or right ventricle. No other change. Signed: Julian Carbone MDReport Verified Date/Time: 10/05/2018 21:38:17 Reading Location: [facility] Reading Room -1 ANTIGEN WITH HIV-1/2 [id number] 14:45:00* Test Item Value Reference Range Comments HIV-1 ANTIGEN WITH HIV 1\T\2 ANTIBODY (2) (BEAKER) (test jcou=1594) Nonreactive Nonreactive BLOOD GAS, [id number] 14:08:00* Test Item Value Reference Range Comments PH ARTERIAL (BEAKER) (test xcvs=743) 7.53 7.35-7.45 PCO2 ARTERIAL (BEAKER) (test cerv=196) 37 mmHg 35-45 PO2 ARTERIAL (BEAKER) (test fxps=129) 104 mmHg 80-90 O2 SATURATION ARTERIAL (BEAKER) (test rcyi=991) 98.3 % 96.0-97.0 HCO3 ARTERIAL (BEAKER) (test wrpk=431) 30 mmol/L 21-29 BASE EXCESS ARTERIAL (BEAKER) (test spzw=592) 7.2 mmol/L -2.0-3.0 PATIENT TEMPERATURE (BEAKER) (test conp=0161) 37.0 C FIO2 (BEAKER) (test zrlh=9501) 28.0 % HEMOGLOBIN-STAT [id number] 13:50:00* Test Item Value Reference Range Comments HEMOGLOBIN (BEAKER) (test elpx=129) 15.0 g/dL 13.0-16.8 OXYGEN SATURATION, [id number] 13:50:00* Test Item Value Reference Range Comments O2 SATURATION (MEASURED) (BEAKER) (test djbm=6867) 79.5 % BLOOD GAS, [id number] 13:33:00* Test Item Value Reference Range Comments PH ARTERIAL (BEAKER) (test burk=153) 7.47 7.35-7.45 PCO2 ARTERIAL (BEAKER) (test ogfm=019) 43 mmHg 35-45 PO2 ARTERIAL (BEAKER) (test etbb=876) 30 mmHg 80-90 O2 SATURATION ARTERIAL (BEAKER) (test uixq=956) 61.4 % 96.0-97.0 HCO3 ARTERIAL (BEAKER) (test uemb=246) 30 mmol/L 21-29 BASE EXCESS ARTERIAL (BEAKER) (test pfrz=676) 5.9 mmol/L -2.0-3.0 PATIENT TEMPERATURE (BEAKER) (test jhtj=0454) 37.0 C FIO2 (BEAKER) (test zqzv=9779) 28.0 % RAD, CHEST, 1 VIEW, NON [id number] 13:15:00Reason for exam:->line placement Should this be performed at the bedside?->YesFINAL REPORT RAD, CHEST, 1 VIEW, NON DEPT INDICATION: line placement COMPARISON: Prior day's exam FINDINGS: Portable frontal view of the chest. IMPRESSION: Support Lines: Placement of right IJ Bokoshe-Nika catheter with tip overlying the right pulmonary artery.Lungs and pleura: Unchanged airspace and pleural opacities. No pneumothorax.Heart and mediastinum: Stable contours. Additional findings: None. Signed: Emma Truongort Verified Date/Time: 10/05/2018 13:15:22 Reading Location: [facility] Radiology Reading Room [id number] 12:01:00* Test Item Value Reference Range Comments MAGNESIUM (BEAKER) (test teer=607) 1.8 mg/dL 1.6-2.6 Specimen slightly hemolyzed Check Serum Potassium level 2 hours after oral potassium replacement completed o r 30 min after intravenous potassium replacement.[id number] 12:01:00* Test Item Value Reference Range Comments POTASSIUM (BEAKER) (test jihk=089) 3.9 meq/L 3.5-5.1 Specimen slightly hemolyzed Check Serum Potassium level 2 hours after oral potassium replacement completed o r 30 min after intravenous potassium replacement.[id number] 11:57:00* Test Item Value Reference Range Comments PARTIAL THROMBOPLASTIN TIME (BEAKER) (test uwmp=446) 77.0 seconds 22.5-36.0 COMPREHENSIVE METABOLIC [id number] 05:46:00* Test Item Value Reference Range Comments TOTAL PROTEIN (BEAKER) (test mjtw=835) 6.9 gm/dL 6.0-8.3 Specimen slightly hemolyzed ALBUMIN (BEAKER) (test grds=0203) 3.1 g/dL 3.5-5.0 Specimen slightly hemolyzed ALKALINE PHOSPHATASE (BEAKER) (test yvha=423) 60 U/L 40-150 BILIRUBIN TOTAL (BEAKER) (test jdkd=741) 0.8 mg/dL 0.2-1.2 Specimen slightly hemolyzed SODIUM (BEAKER) (test tmiz=338) 133 meq/L 136-145 POTASSIUM (BEAKER) (test jftl=479) 3.6 meq/L 3.5-5.1 Specimen slightly hemolyzed CHLORIDE (BEAKER) (test ktiw=266) 96 meq/L 98-107 CO2 (BEAKER) (test gcny=241) 31 meq/L 22-29 BLOOD UREA NITROGEN (BEAKER) (test kwbn=487) 21 mg/dL 7-21 CREATININE (BEAKER) (test qtny=541) 0.74 mg/dL 0.57-1.25 Specimen slightly hemolyzed GLUCOSE RANDOM (BEAKER) (test bero=471) 134 mg/dL 70-105 CALCIUM (BEAKER) (test jvym=362) 9.5 mg/dL 8.4-10.2 AST (SGOT) (BEAKER) (test qbbw=678) 125 U/L 5-34 Specimen slightly hemolyzed ALT (SGPT) (BEAKER) (test hutc=665) 341 U/L 6-55 Specimen slightly hemolyzed EGFR (BEAKER) (test zcaa=2625) 106 mL/min/1.73 sq m ESTIMATED GFR IS NOT ACCURATE CREATININE CLEARANCE IN PREDICTING GLOMERULAR FILTRATION RATE. ESTIMATED GFR IS NOT APPLICABLE FOR DIALYSIS PATIENTS. [id number] 05:25:00* Test Item Value Reference Range Comments PARTIAL THROMBOPLASTIN TIME (BEAKER) (test hnzw=043) 99.2 seconds 22.5-36.0 CBC (HEMOGRAM ONLY)2018-10-05 05:17:00* Test Item Value Reference Range Comments WHITE BLOOD CELL COUNT (BEAKER) (test ynuy=037) 9.0 K/ L 3.5-10.5 RED BLOOD CELL COUNT (BEAKER) (test kgpz=493) 4.40 M/ L 4.63-6.08 HEMOGLOBIN (BEAKER) (test mwmb=238) 14.6 GM/DL 13.7-17.5 HEMATOCRIT (BEAKER) (test nffx=799) 44.4 % 40.1-51.0 MEAN CORPUSCULAR VOLUME (BEAKER) (test xhvz=420) 100.9 fL 79.0-92.2 MEAN CORPUSCULAR HEMOGLOBIN (BEAKER) (test shrw=937) 33.2 pg 25.7-32.2 MEAN CORPUSCULAR HEMOGLOBIN CONC (BEAKER) (test xzje=487) 32.9 GM/DL 32.3-36.5 RED CELL DISTRIBUTION WIDTH (BEAKER) (test unyh=045) 14.1 % 11.6-14.4 PLATELET COUNT (BEAKER) (test kbwj=397) 158 K/CU MM 150-450 MEAN PLATELET VOLUME (BEAKER) (test njvt=598) 11.6 fL 9.4-12.4 NUCLEATED RED BLOOD CELLS (BEAKER) (test xtkx=704) 0 /100 WBC 0-0 [id number] 20:50:00* Test Item Value Reference Range Comments PARTIAL THROMBOPLASTIN TIME (BEAKER) (test hgzn=104) 73.1 seconds 22.5-36.0 HEPATITIS C PCR, [id number] 19:24:00* Test Item Value Reference Range Comments HCV NUMERIC RESULT (BEAKER) (test jkfx=5064) [id number] IU/mL <15 This test uses a Real-Time Polymerase Chain Reaction (RT-PCR) methodology and wa s performed using JANE Ampliprep/JANE TaqMan HCV test kit version 2.0 ([employer]).Reportable range for this assay is 15 - 100,000,000 IU per mL (1.18 - 8.00 Log IU/mL).IMMUNOFIXATION ELECTROPHORESIS (ARNOLD)2018-10-04 16:18:00* Test Item Value Reference Range Comments IMMUNOGLOBULIN G (IGG) (CapiotaAKER) (test aazq=817) 2177 mg/dL 540-1,822 IMMUNOGLOBULIN A (IGA) (CapiotaAKER) (test jnlp=823) 124 mg/dL 63-484 IMMUNOGLOBULIN M (IGM) (BEAKER) (test nuby=208) 54 mg/dL 22-293 SERUM ARNOLD ID (CapiotaAKER) (test qzvf=6810) No monoclonal proteins detected. Polyclonal distribution of immunoglobulins. VZQH-BRHFPGRXZIE-117 (MMRGlobal) (test kvgl=4543) Madhavi Hagen MD (electronic signature) MR, CARDIAC, [id number] 15:17:00Reason for exam:->3 vessel disease and low LVEF. Assess viability.FINAL REPORT Cardiac MRI dated 04 October 2018 INDICATION: This is a 67 year-old male with a diagnosis of ischaemic heart disease presents for assessment. This study is performed in order to quantitate left ventricular function, and to determine myocardial viability and damage. According to [facility], patient have significant coronary artery disease, with [...] not a dedicated MRA, in the available coke crusher operator images, there appears to be substantial atherosclerosis seen at the vertical segment of the proximal left subclavian artery. The left ventricle is enlarged with severe global systolic dysfunction; furthermore, the inferior wall and the lateral wall has the worse wall motion and modality, and essentially they are akinetic. In fact the most distal lateral wall is slightly dyskinetic. Quantitative values are as follows: YTK=345 cc; RQU=137 cc; stroke volume=20 cc; and ejection fraction=8%. Calculated absolute cardiac output=2.3 liters/min. Absolute left ventricular wrhe=961 grams. Index YKNWM=372 cc/sq m. The right ventricle is no rmal in size, however, there is also severe systolic dysfunction. Quantitative v alues are as follows: JOL=704 cc; ESV=78 cc; stroke volume=23 cc; and ejection f raction=22%. Cine imaging and flow quantification reveals trace mitral regurgit ation. Viability/scar imaging reveals viable myocardium seen in the entire inter ventricular septum, and the entire anterior wall, and apex. The mid anterolatera l wall is viable. Near transmural to transmural scar is seen in the basal one t hird of the inferior wall with viable myocardium of at most 1 to 2 mm in thickne ss. The mid inferior wall and the distal [...] prominence is noted. CONCLUSIONS: 1. The left ladonna tricle enlarged, with severe global systolic dysfunction as described above. Ind exed EDV is 149 cc/sq m confirming left ventricular enlargement, and likely diana deling. Ejection fraction is quantified to be 8%. Quantitative left ventricula r functional values are as described above. The right ventricle is normal in siz e, with severe systolic dysfunction. Right ventricular ejection fraction is 22%. Quantitative right ventricular functional values are as described above. Viabil ity/scar imaging reveals viable myocardium seen in the entire interventricular s eptum, and the entire anterior wall, and apex. The mid anterolateral wall is via ble. Near transmural to transmural scar is seen in the basal one third of the i nferior wall with viable myocardium of at most 1 to 2 mm in thickness. The mid i nferior wall and the distal inferior wall is viable. The basal two third of the inferolateral wall, the basal one third of the anterolateral wall, and the dista l lateral wall has near transmural to transmural scar present, with viable myoca rdium of head most 1 to 2 mm in thickness. These areas are essentially nonviable . 2. Other findings as described above, including bibasal pleural effusion, rig ht greater than left. Signed: Clemente [facility] Verified Date/Time: 15:17:18 Reading Location: [place] [address] Cardiology MRI [id number] 14:22:00* Test Item Value Reference Range Comments PARTIAL THROMBOPLASTIN TIME (BEAKER) (test sqnp=118) 73.8 seconds 22.5-36.0 [id number] 14:15:00* Test Item Value Reference Range Comments MAGNESIUM (BEAKER) (test chvi=124) 1.9 mg/dL 1.6-2.6 Specimen slightly hemolyzed Check Serum Potassium level 2 hours after oral potassium replacement completed o r 30 min after intravenous potassium replacement.[id number] 14:15:00* Test Item Value Reference Range Comments POTASSIUM (BEAKER) (test srxj=861) 3.8 meq/L 3.5-5.1 Specimen slightly hemolyzed Check Serum Potassium level 2 hours after oral potassium replacement completed o r 30 min after intravenous potassium replacement.PROTEIN ELECTROPHORESIS, SERUM 2018-10-04 13:30:00* Test Item Value Reference Range Comments ALBUMIN FRACTION (BEAKER) (test xdox=842) 3.1 g/dL 3.5-5.5 ALPHA 1 FRACTION (BEAKER) (test dqek=016) 0.3 g/dL 0.2-0.4 ALPHA 2 FRACTION (BEAKER) (test wtta=983) 0.7 g/dL 0.5-0.9 BETA FRACTION (BEAKER) (test sacy=382) 0.6 g/dL 0.6-1.1 GAMMA GLOBULIN FRACTION (BEAKER) (test iolu=942) 2.0 g/dL 0.7-1.7 INTERPRETATION-119 (BEAKER) (test yymx=1021) Slight polyclonal elevation of gamma globulins, suggestive of chronic inflammatory process. No monoclonal bands detected. BZAO-BMHOSDULXJT-521 (BEAKER) (test zist=4031) Madhavi Hagen MD (electronic signature) PROTEIN TOTAL SERUM, SPEP (BEAKER) (test hzce=5258) 6.7 gm/dL 6.0-8.3 [id number] 07:31:00* Test Item Value Reference Range Comments PARTIAL THROMBOPLASTIN TIME (BEAKER) (test bsfp=958) 51.5 seconds 22.5-36.0 [id number] 06:39:00* Test Item Value Reference Range Comments ALPHA-1 ANTITRYPSIN (BEAKER) (test hpxb=626) 201.10 mg/dL 90.00-200.00 [id number] 05:44:00* Test Item Value Reference Range Comments MAGNESIUM (BEAKER) (test qnna=594) 1.4 mg/dL 1.6-2.6 BASIC METABOLIC [id number] 05:44:00* Test Item Value Reference Range Comments SODIUM (BEAKER) (test vucx=384) 131 meq/L 136-145 POTASSIUM (BEAKER) (test jtug=736) 3.6 meq/L 3.5-5.1 CHLORIDE (BEAKER) (test noyr=540) 93 meq/L 98-107 CO2 (BEAKER) (test mqld=750) 31 meq/L 22-29 BLOOD UREA NITROGEN (BEAKER) (test xfzz=174) 20 mg/dL 7-21 CREATININE (BEAKER) (test oqww=399) 0.73 mg/dL 0.57-1.25 GLUCOSE RANDOM (BEAKER) (test gobg=405) 86 mg/dL 70-105 CALCIUM (BEAKER) (test dqmc=460) 9.6 mg/dL 8.4-10.2 EGFR (BEAKER) (test jgam=8376) 108 mL/min/1.73 sq m ESTIMATED GFR IS NOT ACCURATE CREATININE CLEARANCE IN PREDICTING GLOMERULAR FILTRATION RATE. ESTIMATED GFR IS NOT APPLICABLE FOR DIALYSIS PATIENTS. HEPATIC FUNCTION [id number] 05:44:00* Test Item Value Reference Range Comments TOTAL PROTEIN (BEAKER) (test wwmb=897) 7.1 gm/dL 6.0-8.3 ALBUMIN (BEAKER) (test oeea=3234) 3.2 g/dL 3.5-5.0 BILIRUBIN TOTAL (BEAKER) (test vrve=293) 1.1 mg/dL 0.2-1.2 BILIRUBIN DIRECT (BEAKER) (test bivy=736) 0.6 mg/dL 0.1-0.5 ALKALINE PHOSPHATASE (BEAKER) (test mafj=273) 68 U/L 40-150 AST (SGOT) (BEAKER) (test kldt=459) 163 U/L 5-34 ALT (SGPT) (BEAKER) (test vyfc=532) 442 U/L 6-55 PROTHROMBIN [id number] 05:33:00* Test Item Value Reference Range Comments PROTIME (BEAKER) (test vjor=832) 15.0 seconds 11.7-14.7 INR (BEAKER) (test dtdx=605) 1.2 <=5.9 RECOMMENDED COUMADIN/WARFARIN INR THERAPY RANGESSTANDARD DOSE: 2.0 - 3.0 Inclu jose: PROPHYLAXIS for venous thrombosis, systemic embolization; TREATMENT for ladonna ous thrombosis and/or pulmonary embolus.HIGH RISK: Target INR is 2.5-3.5 for pat ients with mechanical heart valves.CBC (HEMOGRAM ONLY)2018-10-04 05:10:00* Test Item Value Reference Range Comments WHITE BLOOD CELL COUNT (BEAKER) (test karf=143) 10.3 K/ L 3.5-10.5 RED BLOOD CELL COUNT (BEAKER) (test eioz=182) 4.72 M/ L 4.63-6.08 HEMOGLOBIN (BEAKER) (test ttbv=040) 15.7 GM/DL 13.7-17.5 HEMATOCRIT (BEAKER) (test lqfk=716) 47.4 % 40.1-51.0 MEAN CORPUSCULAR VOLUME (BEAKER) (test gxtv=613) 100.4 fL 79.0-92.2 MEAN CORPUSCULAR HEMOGLOBIN (BEAKER) (test kgxn=268) 33.3 pg 25.7-32.2 MEAN CORPUSCULAR HEMOGLOBIN CONC (BEAKER) (test bgbk=013) 33.1 GM/DL 32.3-36.5 RED CELL DISTRIBUTION WIDTH (BEAKER) (test qzzc=254) 14.3 % 11.6-14.4 PLATELET COUNT (BEAKER) (test zfgv=369) 150 K/CU MM 150-450 MEAN PLATELET VOLUME (BEAKER) (test hwbn=153) 11.7 fL 9.4-12.4 NUCLEATED RED BLOOD CELLS (BEAKER) (test hwat=186) 0 /100 WBC 0-0 [id number] 00:41:00* Test Item Value Reference Range Comments PARTIAL THROMBOPLASTIN TIME (BEAKER) (test hcga=901) 74.0 seconds 22.5-36.0 [id number] 18:07:00* Test Item Value Reference Range Comments PROTIME (BEAKER) (test emyn=519) 15.7 seconds 11.7-14.7 INR (BEAKER) (test dwar=513) 1.3 <=5.9 PARTIAL THROMBOPLASTIN TIME (BEAKER) (test ikgv=713) 73.9 seconds 22.5-36.0 RECOMMENDED COUMADIN/WARFARIN INR THERAPY RANGESSTANDARD DOSE: 2.0 - 3.0 Inclu jose: PROPHYLAXIS for venous thrombosis, systemic embolization; TREATMENT for ladonna ous thrombosis and/or pulmonary embolus.HIGH RISK: Target INR is 2.5-3.5 for pat ients with mechanical heart valves.POCT-GLUCOSE [id number] 17:04:00* Test Item Value Reference Range Comments POC-GLUCOSE METER (BEAKER) (test cdlv=6241) 132 mg/dL 70-[address] [facility] [address] [facility] [address] HEPATITIS A ANTIBODY, [id number] 13:59:00* Test Item Value Reference Range Comments HEPATITIS A IGG ANTIBODY (BEAKER) (test qifu=2183) Reactive Nonreactive HEPATITIS B CORE ANTIBODY, [id number] 13:59:00* Test Item Value Reference Range Comments HEPATITIS B CORE TOTAL ANTIBODY (BEAKER) (test uzhr=308) Reactive Nonreactive HEPATITIS B SURFACE [id number] 13:56:00* Test Item Value Reference Range Comments HEPATITIS B SURFACE ANTIBODY (BEAKER) (test jigc=158) 527.4 mIU/mL <8.0 IMMUNOGLOBULIN G (IGG)2018-10-03 13:36:00* Test Item Value Reference Range Comments IMMUNOGLOBULIN G (IGG) (BEAKER) (test mwsd=939) 2242 mg/dL 540-1,822 GAMMA GLUTAMYL TRANSFERASE (GGT)2018-10-03 13:34:00* Test Item Value Reference Range Comments GAMMA GLUTAMYL TRANSFERASE (BEAKER) (test ggof=769) 121 U/L 9-64 HEMOGLOBIN [id number] 11:47:00* Test Item Value Reference Range Comments HEMOGLOBIN A1C (BEAKER) (test cnhk=897) 5.2 % 4.3-6.1 [id number] 11:29:00* Test Item Value Reference Range Comments PROTIME (BEAKER) (test ywsk=995) 16.2 seconds 11.7-14.7 INR (BEAKER) (test bbgc=145) 1.3 <=5.9 PARTIAL THROMBOPLASTIN TIME (BEAKER) (test vqnj=877) 50.7 seconds 22.5-36.0 RECOMMENDED COUMADIN/WARFARIN INR THERAPY RANGESSTANDARD DOSE: 2.0 - 3.0 Inclu jose: PROPHYLAXIS for venous thrombosis, systemic embolization; TREATMENT for ladonna ous thrombosis and/or pulmonary embolus.HIGH RISK: Target INR is 2.5-3.5 for pat ients with mechanical heart valves.[id number] 08:34:00* Test Item Value Reference Range Comments PROCALCITONIN (BEAKER) (test icnl=6274) 0.14 ng/mL <0.05 SEPSIS RISK (ng/mL)Low: 0.05-0.50Intermediate: 0.51-2.00High: > =[id number] 05:45:00* Test Item Value Reference Range Comments FERRITIN (BEAKER) (test dpwv=986) 942 ng/mL 5-275 VITAMIN B12 AND [id number] 05:45:00* Test Item Value Reference Range Comments VITAMIN B12 (BEAKER) (test xwuf=400) 501 pg/mL 213-816 FOLATE (BEAKER) (test nzfk=659) 10.7 ng/mL >=7.0 IRON, TIBC, % SAT. (WITHOUT FERRITIN)2018-10-03 05:23:00* Test Item Value Reference Range Comments IRON (BEAKER) (test gxkv=021) 40.0 ug/dL 40.0-160.0 TOTAL IRON BINDING CAPACITY (BEAKER) (test sbsu=086) 215 ug/dL 250-450 IRON % SATURATION (2) (BEAKER) (test zjxf=0918) 19 % 20-55 B-TYPE NATRIURETIC FACTOR (BNP)2018-10-03 04:52:00* Test Item Value Reference Range Comments B-TYPE NATRIURETIC PEPTIDE (BEAKER) (test qhyz=712) 3586 pg/mL 0-100 [id number] 04:46:00* Test Item Value Reference Range Comments MAGNESIUM (BEAKER) (test qqix=007) 2.2 mg/dL 1.6-2.6 BASIC METABOLIC [id number] 04:46:00* Test Item Value Reference Range Comments SODIUM (BEAKER) (test watt=674) 131 meq/L 136-145 POTASSIUM (BEAKER) (test oour=692) 4.4 meq/L 3.5-5.1 CHLORIDE (BEAKER) (test jzff=461) 94 meq/L 98-107 CO2 (BEAKER) (test ohmo=733) 30 meq/L 22-29 BLOOD UREA NITROGEN (BEAKER) (test ohna=198) 21 mg/dL 7-21 CREATININE (BEAKER) (test eemw=262) 0.77 mg/dL 0.57-1.25 GLUCOSE RANDOM (BEAKER) (test djho=997) 108 mg/dL 70-105 CALCIUM (BEAKER) (test wbll=174) 9.2 mg/dL 8.4-10.2 EGFR (BEAKER) (test yjbn=3955) 101 mL/min/1.73 sq m ESTIMATED GFR IS NOT ACCURATE CREATININE CLEARANCE IN PREDICTING GLOMERULAR FILTRATION RATE. ESTIMATED GFR IS NOT APPLICABLE FOR DIALYSIS PATIENTS. LIPID [id number] 04:46:00* Test Item Value Reference Range Comments TRIGLYCERIDES (BEAKER) (test vxuh=428) 52 mg/dL CHOLESTEROL (BEAKER) (test mdto=388) 97 mg/dL HDL CHOLESTEROL (BEAKER) (test wzdt=963) 25 mg/dL LDL CHOLESTEROL CALCULATED (BEAKER) (test fkfh=166) 62 mg/dL Triglyceride Reference Range: Low Risk <150 Borderline 150-199 High Risk 200-499 Very High Risk >=500Cholesterol Reference Range: Low Risk <200 Borderline 200-239 High Risk >240HDL Cholesterol Reference Range: Low Risk >=60 High Risk <40LDL Cholesterol Reference Range: Optimal <100 Near Optimal 100-129 Borderline 130-159 High 160-189 Very High >=190 HEPATIC FUNCTION [id number] 04:46:00* Test Item Value Reference Range Comments TOTAL PROTEIN (BEAKER) (test ywpp=643) 7.1 gm/dL 6.0-8.3 ALBUMIN (BEAKER) (test jhnq=6433) 3.3 g/dL 3.5-5.0 BILIRUBIN TOTAL (BEAKER) (test kjao=112) 1.5 mg/dL 0.2-1.2 BILIRUBIN DIRECT (BEAKER) (test huwp=406) 0.9 mg/dL 0.1-0.5 ALKALINE PHOSPHATASE (BEAKER) (test yihr=665) 78 U/L 40-150 AST (SGOT) (BEAKER) (test inyw=721) 218 U/L 5-34 ALT (SGPT) (BEAKER) (test kkhn=647) 592 U/L 6-55 [id number] 03:55:00* Test Item Value Reference Range Comments PARTIAL THROMBOPLASTIN TIME (BEAKER) (test nlsd=460) 44.4 seconds 22.5-36.0 PROTHROMBIN TIME/[id number] 03:54:00* Test Item Value Reference Range Comments PROTIME (BEAKER) (test uizd=346) 15.9 seconds 11.7-14.7 INR (BEAKER) (test qmdz=941) 1.3 <=5.9 RECOMMENDED COUMADIN/WARFARIN INR THERAPY RANGESSTANDARD DOSE: 2.0 - 3.0 Inclu jose: PROPHYLAXIS for venous thrombosis, systemic embolization; TREATMENT for ladonna ous thrombosis and/or pulmonary embolus.HIGH RISK: Target INR is 2.5-3.5 for pat ients with mechanical heart valves.CBC (HEMOGRAM ONLY)2018-10-03 03:42:00* Test Item Value Reference Range Comments WHITE BLOOD CELL COUNT (BEAKER) (test qvnd=969) 10.6 K/ L 3.5-10.5 RED BLOOD CELL COUNT (BEAKER) (test upod=802) 4.42 M/ L 4.63-6.08 HEMOGLOBIN (BEAKER) (test lhxu=175) 15.0 GM/DL 13.7-17.5 HEMATOCRIT (BEAKER) (test iqiz=603) 44.7 % 40.1-51.0 MEAN CORPUSCULAR VOLUME (BEAKER) (test awzc=235) 101.1 fL 79.0-92.2 MEAN CORPUSCULAR HEMOGLOBIN (BEAKER) (test yfzm=545) 33.9 pg 25.7-32.2 MEAN CORPUSCULAR HEMOGLOBIN CONC (BEAKER) (test mkls=558) 33.6 GM/DL 32.3-36.5 RED CELL DISTRIBUTION WIDTH (BEAKER) (test ncny=917) 14.1 % 11.6-14.4 PLATELET COUNT (BEAKER) (test rjqi=973) 132 K/CU MM 150-450 MEAN PLATELET VOLUME (BEAKER) (test vzxt=080) 12.1 fL 9.4-12.4 NUCLEATED RED BLOOD CELLS (BEAKER) (test eckb=824) 0 /100 WBC 0-0 T4, [id number] 01:24:00* Test Item Value Reference Range Comments FREE T4 (BEAKER) (test klit=336) 0.90 ng/dL 0.70-1.48 TSH/FREE T4 IF [id number] 00:28:00* Test Item Value Reference Range Comments THYROID STIMULATING HORMONE (BEAKER) (test qjdy=227) 6.65 uIU/mL 0.35-4.94 CREATINE KINASE (CK)2018-10-02 23:31:00* Test Item Value Reference Range Comments CREATINE KINASE TOTAL (BEAKER) (test yqbh=976) 17 U/L 29-200 [id number] 23:27:00* Test Item Value Reference Range Comments PHOSPHORUS (BEAKER) (test iwxz=913) 4.1 mg/dL 2.3-4.7 [id number] 23:16:00* Test Item Value Reference Range Comments PARTIAL THROMBOPLASTIN TIME (BEAKER) (test uylg=736) 32.0 seconds 22.5-36.0 Prior to initiating heparinLACTIC ACID, VENOUS, WHOLE [id number] 21:49:00* Test Item Value Reference Range Comments LACTATE BLOOD VENOUS (2) (BEAKER) (test ljfj=4245) 1.4 mmol/L 0.5-2.2 Specimen moderately hemolyzed TROPONIN [id number] 20:43:00* Test Item Value Reference Range Comments TROPONIN I (BEAKER) (test wwtm=415) 0.69 ng/mL 0.00-0.03 Troponin I (TnI) levels must be interpreted in the context of the presenting sym ptoms and the clinical findings. Elevated TnI levels indicate myocardial damage, but are not specific for ischemic heart disease. Elevated TnI levels are seen in patients with other cardiac conditions (including myocarditis and congestive h eart failure), and slight TnI elevations occur in patients with other conditions , including sepsis, renal failure, acidosis, acute neurological disease, and per sistent tachyarrhythmia.POCT-LACTIC ACID, [id number] 20:09:00* Test Item Value Reference Range Comments POC-LACTIC ACID, VENOUS (BEAKER) (test bdck=0021) 1.8 mmol/L 0.9-1.[address] [facility] [address] [address] HEPATITIS PANEL, [id number] 11:46:00* Test Item Value Reference Range Comments HEPATITIS A IGM ANTIBODY (BEAKER) (test pkqd=446) Nonreactive Nonreactive HEPATITIS B CORE IGM ANTIBODY (BEAKER) (test ajty=952) Nonreactive Nonreactive HEPATITIS C ANTIBODY (BEAKER) (test wbuh=227) Reactive Nonreactive HEPATITIS B SURFACE ANTIGEN (2) (BEAKER) (test fvbw=6924) Nonreactive Nonreactive TROPONIN [id number] 07:14:00* Test Item Value Reference Range Comments TROPONIN I (BEAKER) (test qtwa=872) 0.89 ng/mL 0.00-0.03 Troponin I (TnI) levels must be interpreted in the context of the presenting sym ptoms and the clinical findings. Elevated TnI levels indicate myocardial damage, but are not specific for ischemic heart disease. Elevated TnI levels are seen in patients with other cardiac conditions (including myocarditis and congestive h eart failure), and slight TnI elevations occur in patients with other conditions , including sepsis, renal failure, acidosis, acute neurological disease, and per sistent tachyarrhythmia.CBC (HEMOGRAM ONLY)2018-10-02 06:43:00* Test Item Value Reference Range Comments WHITE BLOOD CELL COUNT (BEAKER) (test bzlh=158) 9.7 K/ L 3.5-10.5 RED BLOOD CELL COUNT (BEAKER) (test kbmj=850) 4.02 M/ L 4.63-6.08 HEMOGLOBIN (BEAKER) (test pbvg=157) 13.9 GM/DL 13.7-17.5 HEMATOCRIT (BEAKER) (test xgeu=437) 40.7 % 40.1-51.0 MEAN CORPUSCULAR VOLUME (BEAKER) (test ssmz=841) 101.2 fL 79.0-92.2 MEAN CORPUSCULAR HEMOGLOBIN (BEAKER) (test dkgm=672) 34.6 pg 25.7-32.2 MEAN CORPUSCULAR HEMOGLOBIN CONC (BEAKER) (test jhve=111) 34.2 GM/DL 32.3-36.5 RED CELL DISTRIBUTION WIDTH (BEAKER) (test klxv=664) 14.3 % 11.6-14.4 PLATELET COUNT (BEAKER) (test jpoh=232) 97 K/CU MM 150-450 MEAN PLATELET VOLUME (BEAKER) (test hhff=173) 12.6 fL 9.4-12.4 NUCLEATED RED BLOOD CELLS (BEAKER) (test sjoc=089) 2 /100 WBC 0-0 RAD, CHEST, 1 VIEW, NON [id number] 06:11:00Reason for exam:->shortness of breathShould this be performed at the bedside?->YesFINAL REPORT Chest one view. Clinical history: shortness of breath Comparison: None. Technique: A single frontal view of the chest was obtained. Findings/impression: There is stable enlargement of the cardiac silhouette. The aorta is atherosclerotic. There is CHF with small bilateral pleural effusions. Superimposed pneumonia cannot be excluded. There is no pneumothorax. There is generalized osteopenia. There is spondylosis deformans. Signed: Omid [place] Verified Date/Time: 10/02/2018 06:11:41 Reading Location: [facility] C013Y CT Body Reading Room [id number] 05:56:00* Test Item Value Reference Range Comments MAGNESIUM (BEAKER) (test ubtq=054) 1.2 mg/dL 1.6-2.6 BASIC METABOLIC [id number] 05:56:00* Test Item Value Reference Range Comments SODIUM (BEAKER) (test vbci=999) 131 meq/L 136-145 POTASSIUM (BEAKER) (test qtxp=763) 3.7 meq/L 3.5-5.1 CHLORIDE (BEAKER) (test mysc=975) 95 meq/L 98-107 CO2 (BEAKER) (test jjky=117) 26 meq/L 22-29 BLOOD UREA NITROGEN (BEAKER) (test uxrh=601) 24 mg/dL 7-21 CREATININE (BEAKER) (test qtoy=827) 0.82 mg/dL 0.57-1.25 GLUCOSE RANDOM (BEAKER) (test qyhd=244) 100 mg/dL 70-105 CALCIUM (BEAKER) (test iyrd=483) 8.8 mg/dL 8.4-10.2 EGFR (BEAKER) (test vcha=2986) 94 mL/min/1.73 sq m ESTIMATED GFR IS NOT ACCURATE CREATININE CLEARANCE IN PREDICTING GLOMERULAR FILTRATION RATE. ESTIMATED GFR IS NOT APPLICABLE FOR DIALYSIS PATIENTS. HEPATIC FUNCTION [id number] 05:56:00* Test Item Value Reference Range Comments TOTAL PROTEIN (BEAKER) (test mywu=656) 7.0 gm/dL 6.0-8.3 ALBUMIN (BEAKER) (test kyeq=4512) 3.3 g/dL 3.5-5.0 BILIRUBIN TOTAL (BEAKER) (test ihkl=967) 1.6 mg/dL 0.2-1.2 BILIRUBIN DIRECT (BEAKER) (test fwuj=150) 0.9 mg/dL 0.1-0.5 ALKALINE PHOSPHATASE (BEAKER) (test ebal=373) 86 U/L 40-150 AST (SGOT) (BEAKER) (test swsj=065) 324 U/L 5-34 ALT (SGPT) (BEAKER) (test ziil=735) 796 U/L 6-55 PROTHROMBIN [id number] 05:41:00* Test Item Value Reference Range Comments PROTIME (NICOLEAKER) (test iayv=711) 19.4 seconds 11.7-14.7 INR (NICOLEAKER) (test xmce=492) 1.6 <=5.9 RECOMMENDED COUMADIN/WARFARIN INR THERAPY RANGESSTANDARD DOSE: 2.0 - 3.0 Inclu jose: PROPHYLAXIS for venous thrombosis, systemic embolization; TREATMENT for ladonna ous thrombosis and/or pulmonary embolus.HIGH RISK: Target INR is 2.5-3.5 for pat ients with mechanical heart valves.
--- NOTE | 2019-01-03 15:05 | NUR ---
[facility] sent here from dr. alexander cordon's office due to bilateral leg swelling. placed on the monitor and in a gown. iv access obtained and blood sent off to the lab. family at side and has been answering all the questions directed to the patient.
[2019-01-03] MEDS ORDERED: FUROSEMIDE INJ 10 MG/ML 4 ML VIAL IV ONE (15:15)
[2019-01-03 16:06] LABS: BASOPHILS # (AUTO) 0.1 (0.0-0.1); BASOPHILS % 0.8 % (0.0-1.0); EOSINOPHILS # (AUTO) 0.2 (0.0-0.4); EOSINOPHILS % 2.2 % (0.0-6.0); HEMATOCRIT 39.9 % (38.2-49.6); HEMOGLOBIN 12.6 g/dL (14.0-18.0); LYMPHOCYTES # (AUTO) 1.2 (1.0-3.2); LYMPHOCYTES % 11.9 % (18.0-39.1); MEAN CORPUSCULAR HEMOGLOBIN 31.7 pg (28-32); MEAN CORPUSCULAR HGB CONC 31.6 g/dL (31-35); MEAN CORPUSCULAR VOLUME 100.3 fL (81-99); MONOCYTES # (AUTO) 0.9 (0.2-0.8); MONOCYTES % 8.5 % (4.4-11.3); NEUTROPHILS # (AUTO) 7.8 (2.1-6.9); PLATELET COUNT 232 x10e3/uL (140-360); RED BLOOD COUNT 3.98 x10e6/uL (4.3-5.7); RED CELL DISTRIBUTION WIDTH 16.4 % (11.7-14.4)
--- NOTE | 2019-01-03 16:10 | NUR ---
iv lasix given and pt has tolerated well so far.
[2019-01-03 16:12] LABS: INR 1.5; PROTHROMBIN TIME 18.7 seconds (11.9-14.5)
[2019-01-03 16:14] LABS: PARTIAL THROMBOPLASTIN TIME 34.6 seconds (23.8-35.5)
[2019-01-03 16:21] LABS: ALANINE AMINOTRANSFERASE 119 IU/L (0-55); ALBUMIN 3.1 g/dL (3.5-5.0); ALBUMIN/GLOBULIN RATIO 0.5 (0.8-2.0); ALKALINE PHOSPHATASE 78 IU/L (40-150); ANION GAP 13.6 mmol/L (8-16); BLOOD UREA NITROGEN 23 mg/dL (7-26); BUN/CREATININE RATIO 28 (6-25); CALCIUM 9.5 mg/dL (8.4-10.2); CARBON DIOXIDE 28 mmol/L (22-29); CHLORIDE 97 mmol/L (98-107); CREATINE KINASE 35 IU/L (30-200); CREATININE, SERUM 0.82 mg/dL (0.72-1.25); EST GLOMERULAR FILTRATION RATE > 60 ML/MIN (60-); GLUCOSE 84 mg/dL (74-118); POTASSIUM 3.6 mmol/L (3.5-5.1); SODIUM 135 mmol/L (136-145)
--- NOTE | 2019-01-03 16:54 | Diagnostic Imaging Report ---
EXAM: CHEST 2 VIEWS, PA and lateral DATE: 01/03/2019Time stamp on exam: 4:29 PM INDICATION: Shortness of breath COMPARISON: None FINDINGS: LINES/TUBES: None LUNGS: Lungs are hyperexpanded with widening of the retrosternal clear space. There is moderate pulmonary edema. PLEURA: Small bilateral right side greater than left pleural effusions. HEART AND MEDIASTINUM: Heart is enlarged. BONES AND SOFT TISSUES: No acute findings. Degenerative changes about the left shoulder. IMPRESSION: Cardiomegaly with moderate pulmonary edema. Signed by: Dr. Juice Steven DO on 01/03/2019 4:51 PM
--- OUTSIDE RECORDS SUMMARY | 2019-01-03 17:32 | XMS REPORT | Clinical Summary ---
Author Author [employer]K[facility]en[facility] Organization 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; Other cirrhosis of [...] Taken Vital Sign Reading 10/12/2018 11:02 AM WEED CONTROL INSPECTOR Blood Pressure 128/74 10/12/2018 11:02 AM WEED CONTROL INSPECTOR Pulse 128 10/12/2018 11:02 AM WEED CONTROL INSPECTOR Temperature 36.4 C (97.6 F) 10/12/2018 11:02 AM WEED CONTROL INSPECTOR Respiratory Rate 20 10/12/2018 11:02 AM WEED CONTROL INSPECTOR Oxygen Saturation 98% - Inhaled Oxygen - Concentration 10/12/2018 5:00 AM WEED CONTROL INSPECTOR Weight 60.7 kg (133 lb 12.8 oz) 10/02/2018 1:00 AM WEED CONTROL INSPECTOR Height 172.7 cm (5' 7.99") 10/12/2018 5:00 AM WEED CONTROL INSPECTOR Body Mass Index 20.35 Plan of Treatment Not on file Procedures Comments Procedure Name Priority Date/Time Associated Diagnosis REPORT OF PROCEDURE - 10/28/2018 ENDOSCOPY SCAN 3:50 PM WEED CONTROL INSPECTOR RHYTHM STRIP - SCAN 10/28/2018 3:50 PM WEED CONTROL INSPECTOR CARDIAC CATH REPORT - 10/28/2018 SCAN 3:50 PM WEED CONTROL INSPECTOR TRANSFUSION SERVICE 10/13/2018 REPORT - SCAN 6:00 PM WEED CONTROL INSPECTOR TYPE AND SCREEN, Routine 10/12/2018 AUTOMATED 5:37 AM WEED CONTROL INSPECTOR CBC (HEMOGRAM ONLY) Routine 10/12/2018 5:37 AM WEED CONTROL INSPECTOR ALPHA FETOPROTEIN (AFP), Routine 10/12/2018 TUMOR MARKER 5:37 AM WEED CONTROL INSPECTOR MR ABDOMEN WITH/WITHOUT Routine 10/12/2018 IV CONTRAST 4:20 AM WEED CONTROL INSPECTOR CBC (HEMOGRAM ONLY) Routine 10/11/2018 4:25 AM WEED CONTROL INSPECTOR PTH-RELATED PEPTIDE Routine 10/11/2018 4:25 AM WEED CONTROL INSPECTOR B-TYPE NATRIURETIC FACTOR Routine 10/11/2018 (BNP) 4:25 AM WEED CONTROL INSPECTOR HEPATIC FUNCTION PANEL Routine 10/10/2018 4:54 AM WEED CONTROL INSPECTOR MAGNESIUM Routine 10/10/2018 4:54 AM WEED CONTROL INSPECTOR BASIC METABOLIC PANEL (7) Routine 10/10/2018 4:54 AM WEED CONTROL INSPECTOR CBC (HEMOGRAM ONLY) Routine 10/10/2018 4:54 AM WEED CONTROL INSPECTOR DIGOXIN LEVEL Routine 10/10/2018 4:54 AM WEED CONTROL INSPECTOR XR CHEST 1 VIEW Routine 10/09/2018 PORTABLE/BEDSIDE 6:23 AM WEED CONTROL INSPECTOR MAGNESIUM Routine 10/09/2018 3:39 AM WEED CONTROL INSPECTOR BASIC METABOLIC PANEL (7) Routine 10/09/2018 3:39 AM WEED CONTROL INSPECTOR CBC (HEMOGRAM ONLY) Routine 10/09/2018 3:39 AM WEED CONTROL INSPECTOR ECG 12-LEAD Routine 10/09/2018 12:51 AM WEED CONTROL INSPECTOR ECG 12-LEAD Routine 10/09/2018 12:51 AM WEED CONTROL INSPECTOR Procedure Note - Interface, External Ris In - 10/09/2018 12:58 AM WEED CONTROL INSPECTOR Ventricula r Rate 119 BPM Atrial Rate 119 BPM P-R Interval 160 ms QRS Duration 122 ms Q-T Interval 372 ms QTC Calculatio n(Bazett) 523 ms P [place] 47 degrees R [place] 66 degrees T [place] 31 degrees Sinus tachycardi a Possible Left atrial enlargemen t Left ventricula r hypertroph y with QRS widening and repolariza tion abnormalit y Abnormal ECG When compared with ECG of 8 00:25, ST less depressed in Inferior leads ST less depressed in Anterior leads T wave inversion no longer evident in Lateral leads POCT-GLUCOSE METER Routine 10/09/2018 12:31 AM WEED CONTROL INSPECTOR ECG 12-LEAD Routine 10/09/2018 12:25 AM WEED CONTROL INSPECTOR Procedure Note - Interface, External Ris In - 10/09/2018 12:58 AM WEED CONTROL INSPECTOR Ventricula r Rate 148 BPM Atrial Rate 148 BPM P-R Interval 198 ms QRS Duration 94 ms Q-T Interval 298 ms QTC Calculatio n(Bazett) 467 ms P [place] 56 degrees R [place] 54 degrees T [place] 87 degrees Sinus tachycardi a Left atrial enlargemen t Indetermin ate axis Marked ST abnormalit y, possible inferior subendocar dial injury Marked ST abnormalit y, possible anterolate ral subendocar dial injury Abnormal ECG When compared with ECG of 8 00:23, No significan t change was found ECG 12-LEAD Routine 10/09/2018 12:23 AM WEED CONTROL INSPECTOR Procedure Note - Interface, External Ris In - 10/09/2018 12:57 AM WEED CONTROL INSPECTOR Ventricula r Rate 151 BPM Atrial Rate 151 BPM P-R Interval 190 ms QRS Duration 94 ms Q-T Interval 292 ms QTC Calculatio n(Bazett) 462 ms P [place] 55 degrees R [place] -17 degrees T [place] 98 degrees Sinus tachycardi a Indetermin ate axis Marked ST abnormalit y, possible inferior subendocar dial injury Marked ST abnormalit y, possible anterolate ral subendocar dial injury Abnormal ECG When compared with ECG of 8 00:45, ST more depressed in Anterior leads T wave inversion now evident in Inferior leads BLOOD GAS, ARTERIAL Routine 10/08/2018 5:45 AM WEED CONTROL INSPECTOR CBC (HEMOGRAM ONLY) Routine 10/08/2018 5:43 AM WEED CONTROL INSPECTOR BLOOD GAS, VENOUS Routine 10/08/2018 5:43 AM WEED CONTROL INSPECTOR OXYGEN SATURATION, Routine 10/08/2018 MEASURED 5:43 AM WEED CONTROL INSPECTOR APTT Routine 10/08/2018 5:43 AM WEED CONTROL INSPECTOR XR CHEST 1 VIEW Routine 10/08/2018 PORTABLE/BEDSIDE 4:26 AM WEED CONTROL INSPECTOR MAGNESIUM Routine 10/07/2018 4:57 PM WEED CONTROL INSPECTOR POTASSIUM Routine 10/07/2018 4:57 PM WEED CONTROL INSPECTOR APTT Routine 10/07/2018 2:04 [address]/CTA AAA AND RUNOFF DIOGENES 10/07/2018 1:[address]/CTA CHEST Routine 10/07/2018 1:37 PM WEED CONTROL INSPECTOR APTT Routine 10/07/2018 6:45 AM WEED CONTROL INSPECTOR US ABDOMEN COMPLETE Routine 10/07/2018 6:30 AM WEED CONTROL INSPECTOR CBC (HEMOGRAM ONLY) Routine 10/07/2018 5:05 AM WEED CONTROL INSPECTOR PROTHROMBIN TIME/INR Routine 10/07/2018 5:05 AM WEED CONTROL INSPECTOR BASIC METABOLIC PANEL (7) Routine 10/07/2018 5:05 AM WEED CONTROL INSPECTOR BLOOD GAS, ARTERIAL Routine 10/07/2018 5:05 AM WEED CONTROL INSPECTOR MAGNESIUM Routine 10/07/2018 5:05 AM WEED CONTROL INSPECTOR BLOOD GAS, VENOUS Routine 10/07/2018 5:01 AM WEED CONTROL INSPECTOR OXYGEN SATURATION, Routine 10/07/2018 MEASURED 5:01 AM WEED CONTROL INSPECTOR XR CHEST 1 VIEW Routine 10/07/2018 PORTABLE/BEDSIDE 4:53 AM WEED CONTROL INSPECTOR OXYGEN SATURATION, STAT 10/07/2018 MEASURED 1:12 AM WEED CONTROL INSPECTOR LACTIC ACID, ARTERIAL STAT 10/07/2018 1:12 AM WEED CONTROL INSPECTOR TROPONIN I STAT 10/07/2018 1:12 AM WEED CONTROL INSPECTOR ECG 12-LEAD Routine 10/07/2018 12:45 AM WEED CONTROL INSPECTOR ECG 12-LEAD Routine 10/07/2018 12:45 AM WEED CONTROL INSPECTOR Procedure Note - Interface, External Ris In - 10/07/2018 12:50 AM WEED CONTROL INSPECTOR Ventricula r Rate 132 BPM Atrial Rate 132 BPM P-R Interval 152 ms QRS Duration 92 ms Q-T Interval 334 ms QTC Calculatio n(Bazett) 494 ms P [place] 62 degrees R [place] -35 degrees T [place] 243 degrees Sinus tachycardi a Possible Left atrial enlargemen t Left axis deviation Marked ST abnormalit y, possible inferior subendocar dial injury Marked ST abnormalit y, possible anterolate ral subendocar dial injury Abnormal ECG When compared with ECG of 8 17:30, T wave inversion more evident in Lateral leads APTT Routine 10/06/2018 11:59 PM WEED CONTROL INSPECTOR PT/APTT STAT 10/06/2018 5:11 PM WEED CONTROL INSPECTOR T4, FREE Routine 10/06/2018 10:17 AM WEED CONTROL INSPECTOR TSH/FREE T4 IF INDICATED Routine 10/06/2018 10:17 AM WEED CONTROL INSPECTOR APTT Routine 10/06/2018 10:17 AM WEED CONTROL INSPECTOR PLATELET COUNT Routine 10/06/2018 10:17 AM WEED CONTROL INSPECTOR BLOOD GAS, VENOUS Routine 10/06/2018 10:00 AM WEED CONTROL INSPECTOR BLOOD GAS, ARTERIAL Routine 10/06/2018 10:00 AM WEED CONTROL INSPECTOR CBC W/PLT COUNT & AUTO Routine 10/06/2018 DIFFERENTIAL 5:38 AM WEED CONTROL INSPECTOR MAGNESIUM Routine 10/06/2018 5:38 AM WEED CONTROL INSPECTOR CBC W/PLT COUNT & AUTO Routine 10/06/2018 DIFFERENTIAL 5:38 AM WEED CONTROL INSPECTOR BASIC METABOLIC PANEL (7) Routine 10/06/2018 5:38 AM WEED CONTROL INSPECTOR OXYGEN SATURATION, Routine 10/06/2018 MEASURED 5:38 AM WEED CONTROL INSPECTOR XR CHEST 1 VIEW STAT 10/05/2018 PORTABLE/BEDSIDE 10:52 PM WEED CONTROL INSPECTOR XR CHEST 1 VIEW STAT 10/05/2018 PORTABLE/BEDSIDE 9:15 PM WEED CONTROL INSPECTOR IABP INSERTION MCR - IP 10/05/2018 Cardiogenic shock (HCC) PROC ONLY 4:05 PM WEED CONTROL INSPECTOR BLOOD GAS, ARTERIAL Routine 10/05/2018 1:46 PM WEED CONTROL INSPECTOR HIV-1 ANTIGEN WITH Routine 10/05/2018 HIV-1/2 ANTIBODY 1:46 PM WEED CONTROL INSPECTOR HEMOGLOBIN-STAT LAB Routine 10/05/2018 1:40 PM WEED CONTROL INSPECTOR OXYGEN SATURATION, Routine 10/05/2018 MEASURED 1:40 PM WEED CONTROL INSPECTOR XR CHEST 1 VIEW DIOGENES 10/05/2018 PORTABLE/BEDSIDE 1:04 PM WEED CONTROL INSPECTOR BLOOD GAS, ARTERIAL Routine 10/05/2018 12:54 PM WEED CONTROL INSPECTOR POTASSIUM Routine 10/05/2018 11:21 AM WEED CONTROL INSPECTOR MAGNESIUM Routine 10/05/2018 11:21 AM WEED CONTROL INSPECTOR APTT Routine 10/05/2018 11:21 AM WEED CONTROL INSPECTOR TOXICOLOGY SCREEN, SERUM Routine 10/05/2018 11:21 AM WEED CONTROL INSPECTOR APTT Routine 10/05/2018 4:59 AM WEED CONTROL INSPECTOR COMPREHENSIVE METABOLIC Routine 10/05/2018 PANEL 4:59 AM WEED CONTROL INSPECTOR CBC (HEMOGRAM ONLY) Routine 10/05/2018 4:59 AM WEED CONTROL INSPECTOR APTT Routine 10/04/2018 8:24 PM WEED CONTROL INSPECTOR ECG 12-LEAD Routine 10/04/2018 5:30 PM WEED CONTROL INSPECTOR Procedure Note - Interface, External Ris In - 10/04/2018 5:35 PM WEED CONTROL INSPECTOR Ventricula r Rate 120 BPM Atrial Rate 120 BPM P-R Interval 152 ms QRS Duration 92 ms Q-T Interval 332 ms QTC Calculatio n(Bazett) 469 ms P [place] 71 degrees R [place] -17 degrees T [place] 79 degrees Sinus tachycardi a Possible Left atrial enlargemen t ST depression , consider subendocar dial injury or digitalis effect Abnormal ECG When compared with ECG of 8 07:04, No significan t change was found ECG 12-LEAD Routine 10/04/2018 5:30 PM WEED CONTROL INSPECTOR ECHOCARDIOGRAM REPORT - 10/04/2018 SCAN 5:20 PM WEED CONTROL INSPECTOR 2D ECHO W/ DOPPLER STAT 10/04/2018 (CW/PW/COLOR) 3:25 PM WEED CONTROL INSPECTOR MAGNESIUM Routine 10/04/2018 1:58 PM WEED CONTROL INSPECTOR POTASSIUM Routine 10/04/2018 1:58 PM WEED CONTROL INSPECTOR APTT Routine 10/04/2018 1:58 PM WEED CONTROL INSPECTOR MR CARDIAC WITHOUT & WITH DIOGENES 10/04/2018 CONTRAST 1:26 PM WEED CONTROL INSPECTOR APTT Routine 10/04/2018 5:02 AM WEED CONTROL INSPECTOR HEPATITIS C PCR, Routine 10/04/2018 QUANTITATIVE 5:02 AM WEED CONTROL INSPECTOR HEPATITIS C GENOTYPE Routine 10/04/2018 5:02 AM WEED CONTROL INSPECTOR [id number]\\, Routine 10/04/2018 SERUM 5:02 AM WEED CONTROL INSPECTOR ACTIN (SMOOTH MUSCLE) Routine 10/04/2018 ANTIBODY, IGG 5:02 AM WEED CONTROL INSPECTOR ANTI-MITOCHONDRIAL AB, Routine 10/04/2018 REFLEX TO TITER 5:02 AM WEED CONTROL INSPECTOR ANTI-NUCLEAR ANTIBODY Routine 10/04/2018 (AURY) 5:02 AM WEED CONTROL INSPECTOR CBC (HEMOGRAM ONLY) Routine 10/04/2018 5:02 AM WEED CONTROL INSPECTOR PROTHROMBIN TIME/INR Routine 10/04/2018 5:02 AM WEED CONTROL INSPECTOR HEPATIC FUNCTION PANEL Routine 10/04/2018 5:02 AM WEED CONTROL INSPECTOR MAGNESIUM Routine 10/04/2018 5:02 AM WEED CONTROL INSPECTOR BASIC METABOLIC PANEL (7) Routine 10/04/2018 5:02 AM WEED CONTROL INSPECTOR APTT Routine 10/04/2018 12:09 AM WEED CONTROL INSPECTOR PT/APTT Routine 10/03/2018 5:51 PM WEED CONTROL INSPECTOR POCT-GLUCOSE METER Routine 10/03/2018 4:59 PM WEED CONTROL INSPECTOR HEPATITIS B SURFACE Routine 10/03/2018 ANTIBODY 1:06 PM WEED CONTROL INSPECTOR HEPATITIS B CORE Routine 10/03/2018 ANTIBODY, TOTAL 1:06 PM WEED CONTROL INSPECTOR HEPATITIS A ANTIBODY, IGG Routine 10/03/2018 1:06 PM WEED CONTROL INSPECTOR GAMMA GLUTAMYL Routine 10/03/2018 TRANSFERASE (GGT) 1:06 PM WEED CONTROL INSPECTOR IMMUNOGLOBULIN G (IGG) Routine 10/03/2018 1:06 PM WEED CONTROL INSPECTOR PT/APTT Routine 10/03/2018 11:09 AM WEED CONTROL INSPECTOR PROCALCITONIN Routine 10/03/2018 6:43 AM WEED CONTROL INSPECTOR IMMUNOFIXATION AP Routine 10/03/2018 ELECTROPHORESIS (ARNOLD) 3:23 AM WEED CONTROL INSPECTOR APTT Routine 10/03/2018 3:23 AM WEED CONTROL INSPECTOR B-TYPE NATRIURETIC FACTOR Routine 10/03/2018 (BNP) 3:23 AM WEED CONTROL INSPECTOR HEMOGLOBIN A1C Routine 10/03/2018 3:23 AM WEED CONTROL INSPECTOR LIPID PANEL Routine 10/03/2018 3:23 AM WEED CONTROL INSPECTOR VITAMIN B12 AND FOLATE Routine 10/03/2018 3:23 AM WEED CONTROL INSPECTOR PROTEIN ELECTROPHORESIS, AP Routine 10/03/2018 SERUM 3:23 AM WEED CONTROL INSPECTOR IRON, TIBC, % SAT. Routine 10/03/2018 (WITHOUT FERRITIN) 3:23 AM WEED CONTROL INSPECTOR FERRITIN Routine 10/03/2018 3:23 AM WEED CONTROL INSPECTOR CBC (HEMOGRAM ONLY) Routine 10/03/2018 3:23 AM WEED CONTROL INSPECTOR PROTHROMBIN TIME/INR Routine 10/03/2018 3:23 AM WEED CONTROL INSPECTOR HEPATIC FUNCTION PANEL Routine 10/03/2018 3:23 AM WEED CONTROL INSPECTOR MAGNESIUM Routine 10/03/2018 3:23 AM WEED CONTROL INSPECTOR BASIC METABOLIC PANEL (7) Routine 10/03/2018 3:23 AM WEED CONTROL INSPECTOR T4, FREE Routine 10/02/2018 10:51 PM WEED CONTROL INSPECTOR TSH/FREE T4 IF INDICATED Routine 10/02/2018 10:51 PM WEED CONTROL INSPECTOR PHOSPHORUS Routine 10/02/2018 10:51 PM WEED CONTROL INSPECTOR CREATINE KINASE (CK) Routine 10/02/2018 10:51 PM WEED CONTROL INSPECTOR APTT Routine 10/02/2018 10:51 PM WEED CONTROL INSPECTOR LACTIC ACID, VENOUS Routine 10/02/2018 9:28 PM WEED CONTROL INSPECTOR POCT-LACTIC ACID, VENOUS Routine 10/02/2018 8:06 PM WEED CONTROL INSPECTOR TROPONIN I Routine 10/02/2018 8:05 PM WEED CONTROL INSPECTOR ECG 12-LEAD Routine 10/02/2018 7:04 AM WEED CONTROL INSPECTOR XR CHEST 1 VIEW Routine 10/02/2018 PORTABLE/BEDSIDE 5:29 AM WEED CONTROL INSPECTOR HEPATITIS PANEL, ACUTE Routine 10/02/2018 5:02 AM WEED CONTROL INSPECTOR TROPONIN I Routine 10/02/2018 5:02 AM WEED CONTROL INSPECTOR CBC (HEMOGRAM ONLY) Routine 10/02/2018 5:02 AM WEED CONTROL INSPECTOR PROTHROMBIN TIME/INR Routine 10/02/2018 5:02 AM WEED CONTROL INSPECTOR HEPATIC FUNCTION PANEL Routine 10/02/2018 5:02 AM WEED CONTROL INSPECTOR MAGNESIUM Routine 10/02/2018 5:02 AM WEED CONTROL INSPECTOR BASIC METABOLIC PANEL (7) Routine 10/02/2018 5:02 AM WEED CONTROL INSPECTOR after 01/02/2018 Results * EKG-SCANNED (10/28/2018 3:50 PM WEED CONTROL INSPECTOR) Narrative Performed At * RHYTHM STRIP - SCAN (10/28/2018 3:50 PM WEED CONTROL INSPECTOR) Narrative Performed At * CARDIAC CATH REPORT - SCAN (10/28/2018 3:50 PM WEED CONTROL INSPECTOR) Narrative Performed At * TRANSFUSION SERVICE REPORT - SCAN (10/13/2018 6:00 PM WEED CONTROL INSPECTOR) Narrative Performed At * Type and screen, automated (10/12/2018 5:37 AM WEED CONTROL INSPECTOR) ABO/RH AUTOMATED (BEAKER) A POSITIVE [facility] Ab Scrn NEGATIVE [facility] Specimen Blood - Arm, Right Performing Organization Address City/[facility] Phone Number [address] * Alpha fetoprotein (AFP), tumor marker (10/12/2018 5:37 AM WEED CONTROL INSPECTOR) Alpha-Fetoprotein 4.3 <10.0 ng/mL [facility] Specimen Blood - Arm, Right Performing Organization Address [facility] Phone Number [phone] [place] [address] * CBC (hemogram only) (10/12/2018 5:37 AM WEED CONTROL INSPECTOR) Only the most recent of 10 results within the time period is included. WBC 5.9 3.5 - 10.5 K/L [facility] RBC 3.68 (L) 4.63 - 6.08 M/L [facility] Hemoglobin 12.5 (L) 13.7 - 17.5 GM/DL [facility] Hematocrit 38.4 (L) 40.1 - 51.0 % [facility] MCV 104.3 (H) 79.0 - 92.2 fL [facility] MCH 34.0 (H) 25.7 - 32.2 pg [facility] MCHC 32.6 32.3 - 36.5 GM/DL [facility] RDW 13.4 11.6 - 14.4 % [facility] Platelets 181 150 - 450 K/CU MM [facility] MPV 12.3 9.4 - 12.4 fL [facility] nRBC 0 0 - 0 /100 WBC [facility] Specimen Blood - Arm, Right Performing Organization Address City/State/Zipcode Phone Number [facility] [address] [place] [address] [facility] * MR abdomen without & with IV contrast (10/12/2018 4:20 AM WEED CONTROL INSPECTOR) Narrative Performed At FINAL REPORT [facility] MRI of the abdomen. CLINICAL HISTORY: Neoplasm: [...] MD Report Verified Date/Time:10/12/2018 08:52:06 Reading Location: [facility] [id number] Ortho Consult Reading Room Procedure Note Interface, External Ris In - 10/12/2018 8:54 AM WEED CONTROL INSPECTOR FINAL REPORT MRI of the abdomen. CLINICAL [...] Report Verified Date/Time: 10/12/2018 08:52:06 Reading Location: [facility] [id number] Ortho Consult Reading Room Performing Organization Address City/State/Zipcode Phone Number [facility] * PTH-related peptide (10/11/2018 4:25 AM WEED CONTROL INSPECTOR) PTH-Related Protein 12 (L) 14 - 27 pg/mL [facility] Comment: INCORPORATED This is a C-terminal PTH-RP assay. PTH-RP is useful in the differential diagnosis of hypercalcemia and levels may be elevated in patients with tumor-associated hypercalcemia. Elevated results may also be observed in patients with renal disease. This test was developed and its analytical performance characteristics have been determined by [employer] [facility]. It has not been cleared or approved by FDA. This assay has been validated pursuant to the CLIA regulations and is used for clinical purposes. Specimen Blood - Arm, Right Narrative Performed At Performing Lab [facility] [id number] [place] [address] Yg Levine MD, PhD, KIRA Performing Organization Address City/[facility] Phone Number [facility], [address] [place] [phone] * B-type Natriuretic Factor (BNP) (10/11/2018 4:25 AM WEED CONTROL INSPECTOR) Only the most recent of 2 results within the time period is included. BNP 2,855 (H) 0 - 100 pg/mL [facility] Specimen Blood - Arm, Right Performing Organization Address [facility] Phone Number [address] * Magnesium (10/10/2018 4:54 AM WEED CONTROL INSPECTOR) Only the most recent of 10 results within the time period is included. Magnesium 1.6 1.6 - 2.6 mg/dL [facility] Specimen Blood Performing Organization Address [facility] Phone Number [address] * Digoxin level (10/10/2018 4:54 AM WEED CONTROL INSPECTOR) Digoxin Lvl <0.3 (L) 0.8 - 2.0 ng/mL [facility] Specimen Blood Performing Organization Address [facility] Phone Number [address] * Hepatic function panel (10/10/2018 4:54 AM WEED CONTROL INSPECTOR) Only the most recent of 4 results within the time period is included. Protein, Total 7.5 6.0 - 8.3 gm/dL [facility] Albumin 3.4 (L) 3.5 - 5.0 g/dL [facility] Total Bilirubin 0.8 0.2 - 1.2 mg/dL [facility] Bilirubin, Direct 0.4 0.1 - 0.5 mg/dL [facility] Alkaline Phosphatase 55 40 - 150 U/L [facility] AST 71 (H) 5 - 34 U/L [facility] ALT 128 (H) 6 - 55 U/L [facility] Specimen Blood Performing Organization Address City/[facility]/Zipcode Phone Number [facility] [address] [place] [address] [facility] * Basic Metabolic Panel (10/10/2018 4:54 AM WEED CONTROL INSPECTOR) Only the most recent of 7 results within the time period is included. Sodium 130 (L) 136 - 145 meq/L [facility] Potassium 3.8 3.5 - 5.1 meq/L [facility] Chloride 101 98 - 107 meq/L [facility] CO2 22 22 - 29 meq/L [facility] BUN 17 7 - 21 mg/dL [facility] Creatinine 0.72 0.57 - 1.25 mg/dL [facility] Glucose 107 (H) 70 - 105 mg/dL [facility] Calcium 9.1 8.4 - 10.2 mg/dL [facility] EGFR 110Comment: ESTIMATED GFR IS mL/min/1.73 sq m [facility] NOT ACCURATE CREATININE [facility] CLEARANCE IN PREDICTING GLOMERULAR FILTRATION RATE. ESTIMATED GFR IS NOT APPLICABLE FOR DIALYSIS PATIENTS. Specimen Blood Performing Organization Address City/State/[facility] Phone Number [facility] [address] [place] [address] [facility] * XR chest 1 view portable / bedside (10/09/2018 6:23 AM WEED CONTROL INSPECTOR) Only the most recent of 7 results [...] MD Report Verified Date/Time:10/09/2018 07:32:13 Reading Location: [address] Neuro Reading Room Procedure Note Interface, External Ris In - 10/09/2018 7:34 AM WEED CONTROL INSPECTOR FINAL REPORT Chest one view AP 10/09/2018 7:31 AM CLINICAL INDICATION: HF COMPARISON: 10/08/2018 IMPRESSION: Cardiomediastinal contours are stable. There is moderately advanced pulmonary edema, worse when compared to the prior examination. There is a suspected small volume left pleural effusion with adjacent basilar atelectasis. Signed: Richard Parker MD Report Verified Date/Time: 10/09/2018 07:32:13 Reading Location: [address] Neuro Reading Room Performing Organization Address City/State/Zipcode Phone Number [facility] * ECG 12 lead (10/09/2018 12:51 AM WEED CONTROL INSPECTOR) Only the most recent of 4 results within the time period is included. Narrative Performed At Ventricular Rate 119 BPM [facility] Atrial Rate 119 BPM P-R Interval 160 ms QRS Duration 122 ms Q-T Interval 372 ms QTC Calculation(Bazett) 523 ms P [place] 47 degrees R [place] 66 degrees T [place] 31 degrees Sinus tachycardia Possible Left atrial [...] External Ris In - 10/09/2018 7:28 AM WEED CONTROL INSPECTOR Ventricular Rate 119 BPM Atrial Rate 119 BPM P-R Interval 160 ms QRS Duration 122 ms Q-T Interval 372 ms QTC Calculation(Bazett) 523 ms P [place] 47 degrees R [place] 66 degrees T [place] 31 degrees Sinus tachycardia Possible Left atrial enlargement Left ventricular hypertrophy with QRS widening and repolarization abnormality Marked ST depression inferolateral leads + ST elevation in aVR consider subendocardial ischemia Prolonged QT Abnormal ECG When compared with ECG of 09-OCT-2018 00:25, QT has lengthened Confirmed by MD KARMEN, RAEGAN ([id number]) on 10/09/2018 7:28:27 AM Performing Organization Address City/[facility] Phone Number [facility] * POC-Glucose meter (10/09/2018 12:31 AM WEED CONTROL INSPECTOR) Only the most recent of 2 results within the time period is included. POC-Glucose Meter 138 (H)Comment: TESTED AT 70 - 110 mg/dL [address] [address] Specimen Blood Performing Organization Address [facility] [place] Phone Number [phone] [place] [address] [facility] * Blood gas, arterial (10/08/2018 5:45 AM WEED CONTROL INSPECTOR) Only the most recent of 5 results within the time period is included. pH, Arterial 7.49 (H) 7.35 - 7.45 [facility] pCO2, Arterial 35 35 - 45 mmHg [facility] pO2, Arterial 163 (H) 80 - 90 mmHg [facility] O2 Sat, Arterial 99.2 (H) 96.0 - 97.0 % [facility] HCO3, Arterial 26 21 - 29 mmol/L [facility] Base Excess, Arterial 2.9 -2.0 - 3.0 mmol/L [facility] Patient Temperature 36.4 C [facility] FIO2 28.0 % [facility] Specimen Blood, Arterial Performing Organization Address [facility] Phone Number [address] [address] [facility] * Oxygen saturation, measured (10/08/2018 5:43 AM WEED CONTROL INSPECTOR) Only the most recent of 5 results within the time period is included. O2 Saturation (Measured) 63.0 % [facility] Specimen Blood Performing Organization Address City/[facility] [facility] Phone Number [address] [address] [facility] * aPTT (10/08/2018 5:43 AM WEED CONTROL INSPECTOR) Only the most recent of 13 results within the time period is included. PTT 66.3 (H) 22.5 - 36.0 seconds [facility] Specimen Blood Performing Organization Address [facility] [place] [address] [facility] * Blood gas, venous (10/08/2018 5:43 AM WEED CONTROL INSPECTOR) Only the most recent of 3 results within the time period is included. pH, Juventino 7.42 7.32 - 7.42 [facility] pCO2, Juventino 47 41 - 51 mmHg [facility] pO2, Juventino 31 25 - 40 mmHg [facility] O2 Sat, Juventino 60.6 40.0 - 70.0 % [facility] HCO3, Juventino 30 (H) 21 - 29 mmol/L [facility] Base Excess, Juventino 4.4 (H) -2.0 - 3.0 mmol/L [facility] Patient Temperature 37.0 C [facility] FIO2 21.0 % [facility] Specimen Blood Narrative Performed At From the distal port of PA cath. [facility] Performing Organization Address [facility] Phone Number [address] [address] [facility] * Potassium (10/07/2018 4:57 PM WEED CONTROL INSPECTOR) Only the most recent of 3 results within the time period is included. Potassium 4.8Comment: Specimen 3.5 - 5.1 meq/L [facility] moderately hemolyzed [facility] Specimen Blood - Line, Arterial Narrative Performed At Check Serum Potassium level 2 hours after oral potassium replacement completed [facility] or 30 min after intravenous potassium replacement. [facility] Performing Organization Address City/State/Zipcode Phone Number [facility] [address] [place] [address] [facility] * CTA chest (10/07/2018 1:37 PM WEED CONTROL INSPECTOR) Narrative Performed At Addendum Begins [facility] REPORT STATUS:A Addendum: I reviewed the nonvascular [...] MD Report Verified Date/Time:10/07/2018 18:01:45 Reading Location: [place] [address] Angio Body Reading Room Addendum Ends FINAL [...] central pulmonary artery embolism is identified. A Eudora-Nika catheter is seen, with tip in the [...] atherosclerosis identified. In the infrarenal abdominal aorta, [id number] circumferential calcific and noncalcific atherosclerosis also identified. [...] the central pulmonary artery is prominent. A Eudora-Nika catheter is identified. A9-10 mm nodule is seen in the left upper lobe. This should be followed with short-term examination, versus direct tissue sampling, versus PET scan. An addendum will be dictated thereafter. 5.Other findings as described above. 6.An addendum will be dictated by the Warehouse Record Clerk Radiologist regarding the nonvascular findings. 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 A Eudora-Nika catheter is seen, with tip in the [...] atherosclerosis identified. In the infrarenal abdominal aorta, [id number] circumferential calcific and noncalcific atherosclerosis also identified. [...] the central pulmonary artery is prominent. A Eudora-Nika catheter is identified. A 9-10 mm nodule is seen in the left upper lobe. This should be followed with short-term examination, versus direct tissue sampling, versus PET scan. An addendum will be dictated thereafter. 5. Other findings as described above. 6. An addendum will be dictated by the Warehouse Record Clerk Radiologist regarding the nonvascular findings. 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 A Eudora-Nika catheter is seen, with tip in the [...] atherosclerosis identified. In the infrarenal abdominal aorta, rqgg-[id number] circumferential calcific and noncalcific atherosclerosis also identified. [...] the central pulmonary artery is prominent. A Eudora-Nika catheter is identified. A9-10 mm nodule is seen in the left upper lobe. This should be followed with short-term examination, versus direct tissue sampling, versus PET scan. An addendum will be dictated thereafter. 5.Other findings as described above. 6.An addendum will be dictated by the Warehouse Record Clerk Radiologist regarding the nonvascular findings. 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 A Eudora-Nika catheter is seen, with tip in the [...] atherosclerosis identified. In the infrarenal abdominal aorta, [id number] circumferential calcific and noncalcific atherosclerosis also identified. [...] the central pulmonary artery is prominent. A Eudora-Nika catheter is identified. A 9-10 mm nodule is seen in the left upper lobe. This should be followed with short-term examination, versus direct tissue sampling, versus PET scan. An addendum will be dictated thereafter. 5. Other findings as described above. 6. An addendum will be dictated by the Warehouse Record Clerk Radiologist regarding the nonvascular findings. Signed: Clemente Frost MD Report Verified Date/Time: 10/07/2018 15:50:54 Reading Location: [place] [address] Cardiology MRI Performing Organization Address City/State/Zipcode Phone Number [facility] * US abdomen complete (10/07/2018 6:30 AM WEED CONTROL INSPECTOR) Narrative Performed At FINAL REPORT [facility] TECHNIQUE: Grayscale ultrasound of the abdomen with [...] MD Report Verified Date/Time:10/07/2018 08:49:04 Reading Location: [address] Ultrasound Reading Room Procedure Note Interface, External Ris In - 10/07/2018 8:51 AM WEED CONTROL INSPECTOR FINAL REPORT TECHNIQUE: Grayscale ultrasound of the [...] Report Verified Date/Time: 10/07/2018 08:49:04 Reading Location: [address] Ultrasound Reading Room Performing Organization Address City/[facility] Phone Number [facility] * Prothrombin time/INR (10/07/2018 5:05 AM WEED CONTROL INSPECTOR) Only the most recent of 4 results within the time period is included. Protime 14.0 11.7 - 14.7 seconds [facility] INR 1.1 <=5.9 [facility] Specimen Blood Narrative Performed At RECOMMENDED COUMADIN/WARFARIN INR THERAPY RANGES [facility] STANDARD DOSE: 2.0 - 3.0 Includes: PROPHYLAXIS for venous thrombosis, [facility] systemic embolization; TREATMENT for venous thrombosis and/or pulmonary embolus. HIGH RISK: Target INR is 2.5-3.5 for patients with mechanical heart valves. Performing Organization Address [facility] [place] Phone Number [place] [phone] [place] [address] * Troponin I (10/07/2018 1:12 AM WEED CONTROL INSPECTOR) Only the most recent of 3 results within the time period is included. Troponin I 1.32 (HH) 0.00 - 0.03 ng/mL [facility] Specimen Blood Narrative Performed At Troponin I (TnI) levels must be interpreted in the context of the presenting [facility] symptoms and the clinical findings. Elevated TnI levels indicate myocardial [facility] damage, but are not specific for ischemic heart disease. Elevated TnI levels are seen in patients with other cardiac conditions (including myocarditis and congestive heart failure), and slight TnI elevations occur in patients with other conditions, including sepsis, renal failure, acidosis, acute neurological disease, and persistent tachyarrhythmia. Performing Organization Address [facility] Phone Number [address] [address] [facility] * Lactic acid, arterial, whole blood (10/07/2018 1:12 AM WEED CONTROL INSPECTOR) Lactate, Art 1.0 0.5 - 2.2 mmol/L [facility] Specimen Blood, Arterial Performing Organization Address [facility] Phone Number [address] [place] [address] [facility] * PT/aPTT (10/06/2018 5:11 PM WEED CONTROL INSPECTOR) Only the most recent of 3 results within the time period is included. Protime 14.5 11.7 - 14.7 seconds [facility] INR 1.1 <=5.9 [facility] PTT 34.3 22.5 - 36.0 seconds [facility] Specimen Blood - Line, Arterial Narrative Performed At RECOMMENDED COUMADIN/WARFARIN INR THERAPY RANGES [facility] STANDARD DOSE: 2.0 - 3.0 Includes: PROPHYLAXIS for venous thrombosis, [facility] systemic embolization; TREATMENT for venous thrombosis and/or pulmonary embolus. HIGH RISK: Target INR is 2.5-3.5 for patients with mechanical heart valves. Performing Organization Address [facility] Phone Number [place] [phone] * TSH/Free T4 If Indicated (10/06/2018 10:17 AM WEED CONTROL INSPECTOR) Only the most recent of 2 results within the time period is included. TSH 6.87 (H) 0.35 - 4.94 uIU/mL [facility] Specimen Blood - Line, Arterial Performing Organization Address City/[facility] [place] [address] [phone] [place] [address] * Platelet count (10/06/2018 10:17 AM WEED CONTROL INSPECTOR) Platelets 161 150 - 450 K/CU MM [facility] Specimen Blood - Line, Arterial Performing Organization Address [facility] [place] [address] [phone] [place] [address] * T4, free (10/06/2018 10:17 AM WEED CONTROL INSPECTOR) Only the most recent of 2 results within the time period is included. Free T4 0.93 0.70 - 1.48 ng/dL [facility] Specimen Blood - Line, Arterial Performing Organization Address City/State/Zipcode Phone Number [facility] [address] [place] [address] MEDICAL CENTER * CBC with platelet count + automated diff (10/06/2018 5:38 AM WEED CONTROL INSPECTOR) WBC 8.7 3.5 - 10.5 K/L [facility] RBC 4.30 (L) 4.63 - 6.08 M/L [facility] Hemoglobin 14.6 13.7 - 17.5 GM/DL [facility] Hematocrit 44.4 40.1 - 51.0 % [facility] MCV 103.3 (H) 79.0 - 92.2 fL [facility] MCH 34.0 (H) 25.7 - 32.2 pg [facility] MCHC 32.9 32.3 - 36.5 GM/DL [facility] RDW 14.1 11.6 - 14.4 % [facility] Platelets 143 (L) 150 - 450 K/CU MM [facility] MPV 11.7 9.4 - 12.4 fL [facility] nRBC 0 0 - 0 /100 WBC [facility] % Neutros 60 % [facility] % Lymphs 20 % [facility] % Monos 16 % [facility] % Eos 2 % [facility] % Baso 1 % [facility] # Neutros 5.23 1.78 - 5.38 K/L [facility] # Lymphs 1.72 1.32 - 3.57 K/L [facility] # Monos 1.41 (H) 0.30 - 0.82 K/L [facility] # Eos 0.16 0.04 - 0.54 K/L [facility] # Baso 0.04 0.01 - 0.08 K/L [facility] Immature 1 0 - 1 % [facility] Granulocytes-Relative [facility] Specimen Blood Performing Organization Address City/[facility]/Zipcode Phone Number [address] [address] [facility] * HIV-1 Antigen with HIV-1/2 Antibody (10/05/2018 1:46 PM WEED CONTROL INSPECTOR) HIV-1 Antigen with HIV NON-REACTIVE Nonreactive [facility] 1&2 Antibody [facility] Specimen Blood - Line, Arterial Performing Organization Address City/[facility]/Zipcode Phone Number [address] [address] [facility] * Hemoglobin-Stat Lab (10/05/2018 1:40 PM WEED CONTROL INSPECTOR) Hemoglobin 15.0 13.0 - 16.8 g/dL [facility] Specimen Blood, Arterial - Arm, Left Performing Organization Address City/[facility] [place] [address] [phone] [place] [address] * Toxicology screen, serum (10/05/2018 11:21 AM WEED CONTROL INSPECTOR) DRUG TEST, GENERAL see note [facility], URINE,QUEST Comment: INCORPORATED The following compounds were detected: Caffeine Salicylic Acid For a list of compounds and limits of detection go to: http://education.[employer].com/faq/XWM367 This test was developed and its analytical performance characteristics have been determined by [employer] [facility] [place], [place]. It has not been cleared or [...] Lab [facility] [employer] [facility] [place], [address] [place] [address] Lexa Magaña MD, PhD Performing Organization Address City/State/Zipcode Phone Number [facility], [address] [place], [place] INCORPORATED [address] [address] * Comprehensive metabolic panel (10/05/2018 4:59 AM WEED CONTROL INSPECTOR) Protein, Total 6.9Comment: Specimen slightly 6.0 - 8.3 gm/dL [facility] Albumin 3.1 (L)Comment: Specimen 3.5 - 5.0 g/dL [facility] Alkaline Phosphatase 60 40 - 150 U/L [facility] Total Bilirubin 0.8Comment: Specimen slightly 0.2 - 1.2 mg/dL [facility] Sodium 133 (L) 136 - 145 meq/L [facility] Potassium 3.6Comment: Specimen slightly 3.5 - 5.1 meq/L [facility] Chloride 96 (L) 98 - 107 meq/L [facility] CO2 31 (H) 22 - 29 meq/L [facility] BUN 21 7 - 21 mg/dL [facility] Creatinine 0.74Comment: Specimen slightly 0.57 - 1.25 mg/dL [facility] Glucose 134 (H) 70 - 105 mg/dL [facility] Calcium 9.5 8.4 - 10.2 mg/dL [facility] AST 125 (H)Comment: Specimen 5 - 34 U/L [facility] ALT 341 (H)Comment: Specimen 6 - 55 U/L [facility] EGFR 106Comment: ESTIMATED GFR IS mL/min/1.73 sq m [facility] NOT ACCURATE CREATININE [facility] CLEARANCE IN PREDICTING GLOMERULAR FILTRATION RATE. ESTIMATED GFR IS NOT APPLICABLE FOR DIALYSIS PATIENTS. Specimen Blood Performing Organization Address City/State/Zipcode Phone Number [facility] [address] [place] [address] MEDICAL CENTER * ECHOCARDIOGRAM REPORT - SCAN (10/04/2018 5:20 PM WEED CONTROL INSPECTOR) Narrative Performed At * 2D Echo W/Doppler(CW/PW/Color) (10/04/2018 3:25 PM WEED CONTROL INSPECTOR) Ejection Fraction [facility] ECHO HEARTLAB MKCKESSON [facility] Narrative Performed At Transthoracic Echocardiography Report (TTE) [facility] ECHO HEARTLAB Demographics [facility] Patient Name Franchesca MERCER of Study 10/04/2018 EMETERIO [id number] Male Visit Number [id number] Room Number 6106 Number Date of Birth1950Referring Physician Karson Roca Age67 year(s)Contact Finger Assembler Bulmaro Wei [facility] AnalystMailynInterpreting Iqra Guadalupe MD Procedure Type of [...] External Ris In - 10/04/2018 4:37 PM WEED CONTROL INSPECTOR Transthoracic Echocardiography Report (TTE) Demographics Patient Name KERVIN MERCER Date of Study 10/04/2018 EMETERIO Gender Male Visit Number [id number] Race Unknown Room Number 6106 Number Date of 1950 Referring Physician Karson Roca Age 67 year(s) Contact Finger Assembler Bulmaro Wei CS Covering Machine Operator Helper Astrid Interpreting Araceli Guadalupe Physician Procedure Type [...] & with IV contrast (10/04/2018 1:26 PM WEED CONTROL INSPECTOR) Narrative Performed At FINAL REPORT [facility] Cardiac MRI dated 04 October 2018 INDICATION: [...] not a dedicated MRA, in the available pm technician images, there appears to be substantial atherosclerosis seen at the vertical segment of the proximal left subclavian artery. The left ventricle is enlarged with severe global systolic dysfunction; furthermore, the inferior wall and the lateral wall has the worse wall motion and modality, and essentially they are akinetic. In fact the most distal lateral wall is slightly dyskinetic. Quantitative values are as follows: TVP=990 cc; ESV= 239 cc; stroke volume=20 cc; and ejection fraction=8%. Calculated absolute cardiac output=2.3 liters/min.Absolute left ventricular cezg=950 grams. Index OUESS=621 cc/sq m. The right ventricle is normal in size, however, there is also severe systolic dysfunction. Quantitative values are as follows: VTN=441 cc; ESV=78 cc; stroke volume=23 cc; and [...] MD Report Verified Date/Time:10/04/2018 15:17:18 Reading Location: [facility] P047 Cardiology MRI Procedure Note Interface, External Ris In - 10/04/2018 3:19 PM WEED CONTROL INSPECTOR FINAL REPORT Cardiac MRI dated 04 October [...] not a dedicated MRA, in the available pm technician images, there appears to be substantial atherosclerosis seen at the vertical segment of the proximal left subclavian artery. The left ventricle is enlarged with severe global systolic dysfunction; furthermore, the inferior wall and the lateral wall has the worse wall motion and modality, and essentially they are akinetic. In fact the most distal lateral wall is slightly dyskinetic. Quantitative values are as follows: MTB=450 cc; ESV= 239 cc; stroke volume=20 cc; and ejection fraction=8%. Calculated absolute cardiac output=2.3 liters/min. Absolute left ventricular jemg=401 grams. Index HZSKO=737 cc/sq m. The right ventricle is normal in size, however, there is also severe systolic dysfunction. Quantitative values are as follows: ESR=215 cc; ESV=78 cc; stroke volume=23 cc; and [...] Report Verified Date/Time: 10/04/2018 15:17:18 Reading Location: [facility] P047 Cardiology MRI Performing Organization Address City/State/Zipcode Phone Number [facility] * Anti-Mitochondrial Ab, reflex to titer (10/04/2018 5:02 AM WEED CONTROL INSPECTOR) Scan Result [facility] Specimen Blood Narrative Performed At Performing Organization Address City/[facility] Phone Number [employer], [address] [facility] [address] * Actin (Smooth Muscle) Antibody, IgG (10/04/2018 5:02 AM WEED CONTROL INSPECTOR) Anti-Smooth Muscle Ab 28 (H) See Note: [...] At Performing Lab [facility] [employer] [address] [place] [address] Yg Levine MD, PhD, KIRA Performing Organization Address City/[facility] Phone Number [employer], [address] [facility] [address] * [id number] (10/04/2018 5:02 AM WEED CONTROL INSPECTOR) A-1 Antitrypsin 201.10 (H) 90.00 - 200.00 mg/dL [facility] Specimen Blood Performing Organization Address [facility] Phone Number [facility] [address] [place] [address] [facility] * Hepatitis C genotype (10/04/2018 5:02 AM WEED CONTROL INSPECTOR) HCV Genotype, LiPA 1a [employer] [facility] Comment: INCORPORATED The method used in this test is RT-PCR and reverse hybridization (Line Probe) of the 5' UTR and core region of the HCV genome. The analytical performance characteristics of this assay have been determined by [facility]. The modifications have not been cleared or approved by the FDA. This assay has been validated pursuant to the CLIA regulations and is used for clinical purposes. For additional information, please refer to http://education.[employer] /faq/HCVGenotyping (This link id being provided for informational/ educational purposes only.) Specimen Blood Narrative Performed At Performing Lab [facility] *[employer] [facility] [address] [place] [address] Amisha Roth MD Performing Organization Address City/State/Zipcode Phone Number [facility], [address] [place], [place] INC[facility] [address] * Hepatitis C PCR, Quantitative (10/04/2018 5:02 AM WEED CONTROL INSPECTOR) HCV PCR, Quantitative 1,680,000 (H) <15 IU/mL [facility] Specimen Blood Narrative Performed At This test uses a Real-Time Polymerase Chain Reaction (RT-PCR) methodology and [facility] was performed using JANE Ampliprep/JANE TaqMan HCV test kit version 2.0 [facility] ([employer] Reportable range for this assay is 15 - 100,000,000 IU per mL (1.18 - 8.00 Log IU/mL). Performing Organization Address [facility] [place] [address] [phone] [place] [address] * Anti-Nuclear Antibody (AURY) (10/04/2018 5:02 AM WEED CONTROL INSPECTOR) AURY Negative Negative [facility] Specimen Blood Narrative Performed At Test performed by IFA method. [facility] Test performed by IFA method. [facility] Performing Organization Address City/[facility]/Zipcode Phone Number [address] [address] [facility] * Hepatitis A antibody, IgG (10/03/2018 1:06 PM WEED CONTROL INSPECTOR) Hep A IgG Reactive (A) Nonreactive [facility] Specimen Blood - Arm, Left Performing Organization Address [facility] Cent[facility] Phone Number [address] [address] [facility] * Hepatitis B core antibody, total (10/03/2018 1:06 PM WEED CONTROL INSPECTOR) Hep B Core Total Ab REACTIVE (A) Nonreactive [facility] Specimen Blood - Arm, Left Performing Organization Address [facility] [place] Phone Number [address] * Hepatitis B surface antibody (10/03/2018 1:06 PM WEED CONTROL INSPECTOR) Hep B S Ab 527.4 (H) <8.0 mIU/mL [facility] Specimen Blood - Arm, Left Performing Organization Address [facility] [place] Phone Number [address] * Gamma Glutamyl Transferase (GGT) (10/03/2018 1:06 PM WEED CONTROL INSPECTOR) GGT 121 (H) 9 - 64 U/L [facility] Specimen Blood - Arm, Left Performing Organization Address [facility] [place] [address] * Immunoglobulin G (IgG) (10/03/2018 1:06 PM WEED CONTROL INSPECTOR) IgG 2,242 (H) 540-1,822 mg/dL [facility] Specimen Blood - Arm, Left Performing Organization Address [facility] [place] Phone [place] [address] * Procalcitonin (10/03/2018 6:43 AM WEED CONTROL INSPECTOR) Procalcitonin 0.14 (H) <0.05 ng/mL [facility] Specimen Blood Narrative Performed At SEPSIS RISK (ng/mL) [facility] Low:0.05-0.50 [facility] Intermediate: 0.51-2.00 High: >=2.01 Performing Organization Address [facility] [place] Phone [place] [address] C[place] * Vitamin B12 and Folate (10/03/2018 3:23 AM WEED CONTROL INSPECTOR) Vitamin B12 501 213 - 816 pg/mL [facility] Folate 10.7 >=7.0 ng/mL [facility] Specimen Blood Performing Organization Address City[facility] Phone Number [address] * Iron, TIBC, % sat. (without ferritin) (10/03/2018 3:23 AM WEED CONTROL INSPECTOR) Iron 40.0 40.0 - 160.0 ug/dL [facility] TIBC 215 (L) 250 - 450 ug/dL [facility] Iron % Saturation 19 (L) 20 - 55 % [facility] Specimen Blood Performing Organization Address City[facility] Phone Number [address] * Immunofixation electrophoresis (ARNOLD) (10/03/2018 3:23 AM WEED CONTROL INSPECTOR) IgG 2,177 (H) 540-1,822 mg/dL [facility] IgA 124 63 - 484 mg/dL [facility] IgM 54 22 - 293 mg/dL [facility] Serum ARNOLD Identification No monoclonal proteins [facility] detected. Polyclonal [facility] distribution of immunoglobulins. Pathologist: Madhavi Hagen MD [facility] (electronic signature) [facility] Specimen Blood Performing Organization Address City/[facility] [place] [address] [phone] [place] [address] * Protein electrophoresis, serum (10/03/2018 3:23 AM WEED CONTROL INSPECTOR) Albumin Fraction 3.1 (L) 3.5 - 5.5 g/dL [facility] Alpha 1 Fraction 0.3 0.2 - 0.4 g/dL [facility] Alpha 2 Fraction 0.7 0.5 - 0.9 g/dL [facility] Beta Fraction 0.6 0.6 - 1.1 g/dL [facility] Gamma Globulin Fraction 2.0 (H) 0.7 - 1.7 g/dL [facility] Interpretation Slight polyclonal elevation of [facility] gamma globulins, suggestive of [facility] chronic inflammatory process. No monoclonal bands detected. Pathologist: Madhavi Hagen MD [facility] (electronic signature) [facility] Protein, Total 6.7 6.0 - 8.3 gm/dL [facility] Specimen Blood Performing Organization Address City/[facility]/Zipcode Phone Number [place] [phone] [place] [address] * Hemoglobin A1c (10/03/2018 3:23 AM WEED CONTROL INSPECTOR) Hemoglobin A1C 5.2 4.3 - 6.1 % [facility] Specimen Blood Performing Organization Address City/[facility]/Zipcode Phone Number [address] * Ferritin (10/03/2018 3:23 AM WEED CONTROL INSPECTOR) Ferritin 942 (H) 5 - 275 ng/mL [facility] Specimen Blood Performing Organization Address City/[facility]/[place] [address] [phone] [address] * Lipid panel (10/03/2018 3:23 AM WEED CONTROL INSPECTOR) Triglycerides 52 mg/dL [facility] Cholesterol 97 mg/dL [facility] HDL 25 mg/dL [facility] LDL Calculated 62 mg/dL [facility] Specimen Blood Narrative Performed At Triglyceride Reference Range: [facility] Low Risk <150 [facility] [id number] High Risk 200-499 Very High Risk>=500 Cholesterol Reference Range: Low Risk <200 [id number] High Risk>240 HDL Cholesterol Reference Range: Low Risk >=60 High Risk <40 LDL Cholesterol Reference Range: Optimal<100 Near [id number] [id number] [id number] Very High >=190 Performing Organization Address City[facility] Phone Number [address] [address] [phone] [place] [address] * Phosphorus (10/02/2018 10:51 PM WEED CONTROL INSPECTOR) Phosphorus 4.1 2.3 - 4.7 mg/dL [facility] Specimen Blood Performing Organization Address [facility] [place] [facility] [place] Phone Number [place] [phone] [place] [address] * Creatine Kinase (CK) (10/02/2018 10:51 PM WEED CONTROL INSPECTOR) Total CK 17 (L) 29 - 200 U/L [facility] Specimen Blood Performing Organization Address [facility] [place] [facility] [place] Phone Number [place] [phone] [place] [address] * Lactic acid, venous, whole blood (10/02/2018 9:28 PM WEED CONTROL INSPECTOR) Lactate, Venous 1.4Comment: Specimen 0.5 - 2.2 mmol/L [facility] moderately hemolyzed [facility] Specimen Blood Performing Organization Address [facility] [place] [facility] [place] Phone Number [address] [address] [facility] * POC-Lactic Acid, Venous (10/02/2018 8:06 PM WEED CONTROL INSPECTOR) POC-Lactic Acid, Venous 1.8 (H)Comment: TESTED AT 0.9 - 1.7 mmol/L [address] [address] Specimen Blood Performing Organization Address [facility] Phone Number [address] [address] [facility] * Hepatitis panel, acute (10/02/2018 5:02 AM WEED CONTROL INSPECTOR) Hep A IgM HEPATITIS A TEST NEGATIVE Nonreactive [facility] Hep B C IgM NON-REACTIVE Nonreactive [facility] Hepatitis C Ab Reactive (A) Nonreactive [facility] hepatitis B Surface Ag NON-REACTIVE Nonreactive [facility] Specimen Blood - Hand, Left Performing Organization Address City/State/Zipcode Phone Number [facility] [address] [place], [place] [phone] [facility] after 01/02/2018 Insurance Payer Benefit Subscriber ID Type Phone Address Plan / Group [employer] TEX[employer] xxxxxxxxx [facility] Advance Directives For more information, please contact: [address] [phone] Date Inactivated Comments Code Status Date Activated Full Code 10/02/2018 2:58 AM This code status was determined by: Patient Relationship Healthcare Agent Relationship Phone Name Sister Primary healthcare agent [phone] EMMA Josue
[2019-01-03] MEDS ORDERED: METOPROLOL SUCC25 MG PO (17:49)
[2019-01-03] MEDS ORDERED: ELIQUS PO (17:49)
[2019-01-03] MEDS ORDERED: FUROSEMIDE40 MG PO (17:49)
[2019-01-03] MEDS ORDERED: DIGOXIN250 MCG PO (17:49)
[2019-01-03] MEDS ORDERED: CLONAZEPAM0.5 MG PO (17:49)
--- NOTE | 2019-01-03 17:49 | NUR ---
home med list obtained and entered into the computer
[2019-01-03 21:38] VITALS: BP 123/65
[2019-01-03 21:50] VITALS: BP 128/65
[2019-01-03 22:02] VITALS: BP 123/65
[2019-01-03 23:14] LABS: CREATINE KINASE MB 2.2 ng/mL (0-5.0)
[2019-01-04] VITALS (8 sets, daily range): BP systolic 102–123; BP diastolic 58–73
[2019-01-04 06:20] LABS: CREATINE KINASE MB 1.6 ng/mL (0-5.0)
--- NOTE | 2019-01-04 07:02 | NUR ---
RECEIVED REPORT FROM OFFGOING NURSE. PATIENT IS RESTING IN BED, NO ACUTE DISTRESS NOTED. CALL LIGHT WITHIN REACH. BED IN THE LOWEST POSITION. BED ALARM ON.
--- NOTE | 2019-01-04 08:20 | NUR ---
CASE MANAGEMENT INITIAL ASSESSMENT Director Of Pulmonary Unit to bedside to discuss plan of care with patient/family. CM/SW role and care transitions discussed. Anticipated discharge plan discussed along with duration of care. CM/SW discussed patients right to make decisions in care. CM/SW work hours given. Patient lives: ALONE Admit/Transfer: ER Hospital/ER visits since last admit:0 POA/Emergency contact: Current/Previous Home Health: NONE PCP/Follow-up Care: PCP Current/Previous DME: NONE Medications (referring to index hospitalization or the first time you were in the hospital) a. Were changes made in your medications when you were in the hospital on [date of index hospitalization]? Yes No Not sure Explain: Note: If no or not sure, please skip to question d b. Did you understand the changes? Yes No Explain: c. Were you able to obtain your new medications right away? Yes No n/a SNF only Explain: d. Were you able to take your medications like the doctor wanted you to? TAKING PER PCP e. Did the hospital give you an accurate, easy to understand list of medications when you left? Scale of 1-10 how comfortable does patient feel with disease management in outpatient settin Other Services: NONE Employment Status: RETIRED Areas of Concerns: NONE Referral Needs: MAY NEED SNF Education Needs: F/U APPTS IMM/ROCHA given and signed (if applicable): IMM ON ADMIT Goal for discharge:TO DC TO NEXT LEVEL OF CARE WHEN READY CM/SW left business card at the bedside with contact information. Name and number was also written on the patients whiteboard. Patient verbalized understanding of discussion. CM will follow-up with ongoing discharge and transition of care needs.
[2019-01-04] MEDS: FUROSEMIDE INJ 10 MG/ML 4 ML VIAL IV SCH ×2 (08:33→16:17)
[2019-01-04] MEDS: LISINOPRIL 2.5 MG TAB PO SCH (08:33)
[2019-01-04] MEDS ORDERED: SODIUM CHLORIDE 0.9% 250ML 250 ML ONE (09:59)
[2019-01-04] MEDS: CLINDAMYCIN 300MG 50 ML IV SCH ×3 (10:05→21:23)
[2019-01-04] MEDS: APIXABAN 5 MG TABLET PO SCH ×2 (10:05→20:54)
--- NOTE | 2019-01-04 12:38 | NUR ---
WOUND CARE CONSULTATION: THIS IS A 68 YEAR OLD MALE PATIENT ADMITTED TO [facility] FOR CHF EXACERBATION. HEAD TO TOE SKIN ASSESSMENT PERFORMED. PATIENT HAS MULTIPLE SCABS NOTED TO BILATERAL LOWER LEGS AND BILATERAL THIGHS; SCABS ARE SMALL AND STABLE. PATIENT STATED THAT HE HAS HAD ROACHES AND BUGS IN HIS APARTMENT FOR THE PAST 2 WEEKS AND THE SCABS ARE FROM BUG BITES. INSTRUCTED PATIENT NOT TO SCRATCH THE SCABS, PATIENT VERBALIZED UNDERSTANDING AND STATES THAT THE ITCHING HAS SUBSIDED SINCE BEING AT HOSPITAL. 2+ PITTING EDEMA ASSESSED TO BILATERAL LOWER LEGS; UNABLE TO PALPATE PULSES DUE TO EDEMA. ASSESSED PATIENT'S BACK AND BUTTOCKS, NO SCABS NOTED. PATIENT STATED HE DID HAVE SOME SCABS TO HIS UPPER BACK BUT THEY HAVE NOW HEALED. LABS: WBC10.21 ALB3.1 [id number] VENOUS DUPLEX PENDING. MEDICATIONS: CLINDAMYCIN RECOMMENDATIONS: -APPLY ALTERNATING PRESSURE RELIEF MATTRESS. -APPLY BILATERAL HEEL PROTECTORS WITH PILLOW SUSPENSION. -TURN EVERY 2 HOURS AND PRN. -NURSING TO WASH BILATERAL LOWER LEGS WITH SOAP AND WATER, PAT DRY, APPLY LIDEX OINTMENT TO AREAS OF ERYTHEMA TO BILATERAL LOWER LEGS; LEAVE OPEN TO AIR. -NURSING TO APPLY HYDROCORTISONE CREAM TO SCABS ON BILATERAL LOWER LEGS AND TO SCABS ON BILATERAL THIGHS TID PRN FOR ITCHING. THANK YOU FOR THIS WOUND CARE CONSULT. Addendum: 01/04/19 at 1249 by Lazara Alfred RN Amended: Links added.
[2019-01-04] MEDS ORDERED: HYDROCORTISONE 1% CREAM 30 GM TUBE TOP PRN (13:00)
--- NOTE | 2019-01-04 14:32 | Consultation ---
DATE OF CONSULTATION: 01/03/2019 REASON FOR CONSULTATION: CHF exacerbation. HISTORY OF PRESENT ILLNESS: This is a 68-year-old male, who presented with bilateral lower extremity edema. According to the ER report and the patient, he was recently admitted and discharged from [facility] with congestive heart failure. He stated also he was given medication and was asked to follow up with a forestry aid technician, which he never did. He also complained that he was on a blood thinner due to blood clot in his right leg. He was also on digoxin, but do not know the reason why. He denied any chest pain, any diaphoresis, any nausea or vomiting. He stated the swelling has been going on and is getting worse for the last three months that he decided to come in for further evaluation. He saw PCP and was sent to the emergency room. Chest x-ray showed cardiomegaly with moderate pulmonary edema. BNP 3698. Troponin x3 was negative. PAST MEDICAL HISTORY: Hep C, seizure, CHF, DVT on the right leg, PAD, possible arrhythmia, and tobacco abuse. PAST SURGICAL HISTORY: None. FAMILY HISTORY: Noncontributory. SOCIAL HISTORY: He lives at home alone. He smokes two packs of cigarettes daily. MEDICATIONS: He was on clonazepam, digoxin, furosemide, Eliquis, and metoprolol. ALLERGIES: HE IS NOT ALLERGIC TO ANY MEDICATION. REVIEW OF SYSTEMS: Negative except those mentioned above. He is positive for fluid overload and bilateral lower extremity edema. PHYSICAL EXAMINATION: VITAL SIGNS: Temperature 97, heart rate 100, blood pressure 120/73, respirations 20, and oxygen saturation 97% on room air. GENERAL: He is awake, alert, and oriented x3. HEENT: Mucous membranes are moist. NECK: Supple. LUNGS: Bilateral with decreased breath sounds. CARDIOVASCULAR: S1 and S2 present. ABDOMEN: Soft. NEUROLOGIC: Intact. He is able to follow simple commands. EXTREMITIES: With 3 to 4+ pitting edema on bilateral lower extremities. LABS: Sodium 135, potassium 3.6, chloride 97, CO2 of 28, BUN 23, creatinine 0.82, and glucose 84. White blood cell 10.2, hemoglobin 12.6, hematocrit 39.9, and platelets 232. PT 18.7, PTT 14.6, and INR 1.50. IMPRESSION: 1. Congestive heart failure exacerbation, type unknown. 2. Hypertension. 3. Anemia. 4. History of deep vein thrombosis. 5. History of peripheral arterial disease. 6. History of hepatitis C. 7. Tobacco abuse. PLAN: 1. Pending an echo to reassess his LV and valve function. 2. We will get bilateral lower extremity Doppler, he is not sure which leg that had the blood clot in. 3. We will continue diuretic, low-dose beta-praveen, and BASILIA inhibitor. 4. We will put him on 1 L fluid restriction. 5. Low-salt diet. 6. He has been counseled on tobacco cessation. Further cardiac workup pending clinical course. Thank you for this consultation. Dictated by Cristin Chaparro, GERIATRIC ASSISTANT MD STEWART Fernandez/MODL /[id number]
--- NOTE | 2019-01-04 15:30 | NUR ---
Visit made by the Spiritual Care Department Pastoral Visitor, Glenna Flores. Pt sleeping soundly and no family present. Pastoral Visitor left a card describing availability of glue plant operator and instructions on how to contact a glue plant operator. MALATHI CLARK Screen Printing Paster Spiritual Care Department O: [phone] Pager: [phone] ([phone] number calling from)
--- NOTE | 2019-01-04 16:07 | History and Physical ---
PRIMARY CARE PHYSICIAN: Dr. Rd Vega. VEGETABLE WORKER: Dr. Renan Rucker. CHIEF COMPLAINT: Increasing shortness of breath with failed outpatient treatment, PCP sent to the emergency room. HISTORY: The patient is a 68-year-old male, lives at home by himself, apparently a very poor historian, but he had multiple rash in his both upper and lower extremities, stating that there were cockroaches in his apartment that was causing problem. The patient is with limited ambulation. He has bilateral lower extremity swelling with redness from the ankle all the way up to the bilateral knee area with venous stasis consistent with ulceration and edema. This patient came in with congestive heart failure exacerbation and pulmonary edema. He has baseline hepatitis C and seizure. The patient is a long-time smoker and present smoker as well. The patient did receive IV furosemide. He is stable. Apparently, he was diagnosed per history here three months ago with congestive heart failure at [facility] but unable to follow up with his traffic engineer. The patient stated that he did take his medication on a regular basis including Eliquis and diuretic. The patient denies any chest pain. PAST MEDICAL HISTORY: Congestive heart failure, hypertension, peripheral vascular disease with right lower extremity stent placement, poor personal hygiene, lower extremity cellulitis, chronic venous stasis ulcer. PAST SURGICAL HISTORY: Childhood surgery, the patient could not recall. SOCIAL HISTORY: The patient is a smoker. He lives at home by himself. Seem to need more personal care. Poor personal hygiene. No alcohol consumption. HOME MEDICATIONS: Not yet available. PHYSICAL EXAMINATION: VITAL SIGNS: Temperature is 98, blood pressure 116/61, pulse rate is 98, respirations 22. GENERAL: The patient is seen with poor personal hygiene, lower extremity redness with multiple bites all over his legs with rash. HEENT: Normocephalic, atraumatic. Anicteric. NECK: Supple grossly. PULMONARY: Diminished breath sounds bilaterally with coarse rales at the bases. CARDIOVASCULAR: Regular rate and rhythm. ABDOMEN: Soft, no distention. There is scar in the rocky-abdominal area. EXTREMITIES: 2+ edema. Significant redness of both lower extremities with venous stasis and skin changes with some ulceration. There are multiple skin lesions, petechial lesion all the way up to the upper thigh area. NEUROLOGIC: Moving all extremities. No focal deficit. LABORATORY DATA: Sodium is 135, potassium 3.6, chloride 97, bicarb 28, BUN 23, creatinine 0.8, glucose 84. WBC is 10.2, hemoglobin 12.6, hematocrit 39.9, platelets is 232. IMPRESSION: 1. Acute on chronic systolic dysfunction, congestive heart failure most likely. 2. Chronic obstructive pulmonary disease. 3. Hepatitis C history. 4. Venous stasis ulcer with bilateral lower extremity cellulitis and edema. 5. Disposition, poor personal hygiene and care, possible needing social workers consultation with that respect. PLAN: Continue with diuresis. Antibiotics. log chain worker consultation. Repeat lab work. Echocardiogram. Cardiology consultation. We will monitor the patient closely. MD SOPHIA Jaramillo/KYLE /[id number]
[2019-01-04] MEDS ORDERED: FLUOCINONIDE 0.05% 1 EA/15 GM TUBE TOP SCH (17:00)
--- NOTE | 2019-01-04 17:41 | NUR ---
NOTIFIED DR. GO OF PRELIMINARY ECHO RESULTS OF EF <20%, NO NEW ORDERS RECEIVED.
--- NOTE | 2019-01-04 19:18 | NUR ---
REPORT GIVEN TO ONCOMING NURSE, WALKING ROUNDS DONE. PATIENT IS RESTING IN BED, RESPIRATIONS EVEN AND UNLABORED, NO ACUTE DISTRESS NOTED. DENIES PAIN OR DISCOMFORT. CALL LIGHT WITHIN REACH. BED IN THE LOWEST POSITION.
[2019-01-04] MEDS: CLONAZEPAM 0.5 MG TAB PO SCH (20:54)
[2019-01-04] MEDS: FLUOCINONIDE 0.05% 1 EA/15 GM TUBE TOP SCH (20:54)
[2019-01-04] MEDS: METOPROLOL SUCCINATE 25 MG TAB XL PO SCH (20:55)
[2019-01-05] VITALS (7 sets, daily range): BP systolic 91–115; BP diastolic 53–70
[2019-01-05] MEDS: CLINDAMYCIN 300MG 50 ML IV SCH ×4 (03:08→22:15)
[2019-01-05 05:34] LABS: BASOPHILS # (AUTO) 0.1 (0.0-0.1); BASOPHILS % 0.7 % (0.0-1.0); EOSINOPHILS # (AUTO) 0.3 (0.0-0.4); EOSINOPHILS % 2.5 % (0.0-6.0); HEMOGLOBIN 10.7 g/dL (14.0-18.0); LYMPHOCYTES # (AUTO) 1.3 (1.0-3.2); LYMPHOCYTES % 12.5 % (18.0-39.1); MEAN CORPUSCULAR HGB CONC 32.4 g/dL (31-35); MEAN CORPUSCULAR VOLUME 98.8 fL (81-99); MONOCYTES # (AUTO) 1.2 (0.2-0.8); NEUTROPHILS # (AUTO) 7.5 (2.1-6.9); NEUTROPHILS % 71.9 % (38.7-80.0); PLATELET COUNT 209 x10e3/uL (140-360); RED BLOOD COUNT 3.34 x10e6/uL (4.3-5.7); RED CELL DISTRIBUTION WIDTH 16.6 % (11.7-14.4)
[2019-01-05 05:59] LABS: BLOOD UREA NITROGEN 19 mg/dL (7-26); BUN/CREATININE RATIO 25 (6-25); CARBON DIOXIDE 30 mmol/L (22-29); CHLORIDE 97 mmol/L (98-107); CREATININE, SERUM 0.76 mg/dL (0.72-1.25); EST GLOMERULAR FILTRATION RATE > 60 ML/MIN (60-); GLUCOSE 80 mg/dL (74-118); SODIUM 134 mmol/L (136-145)
--- NOTE | 2019-01-05 08:45 | NUR ---
Pt received resting in bed. Alert and oriented x4 with saline lock #18 in right AC. Pt noted with redness to lower extremities. Oriented to staff and surroundings, encouraged to press call hunter if help needed. Emotional support given. Fall precautions maintained. Will monitor
[2019-01-05] MEDS: LISINOPRIL 2.5 MG TAB PO SCH (08:48)
[2019-01-05] MEDS: APIXABAN 5 MG TABLET PO SCH ×2 (08:48→20:49)
[2019-01-05] MEDS: FUROSEMIDE INJ 10 MG/ML 4 ML VIAL IV SCH ×2 (08:48→17:00)
[2019-01-05] MEDS: FLUOCINONIDE 0.05% 1 EA/15 GM TUBE TOP SCH ×2 (09:00→20:50)
[2019-01-05] MEDS ORDERED: POTASSIUM CHLORIDE 20 MEQ TAB CR PO STA (09:50)
--- NOTE | 2019-01-05 15:39 | NUR ---
Nutrition Screen Note RD Recommendation for Physician: - Continue Cardiac diet - Diet education provided 01/05 Plan of Care: RD following Nutrition reason for involvement: Dx screen for CHF Primary Diagnose(s): CHF exacerbation PMH: CHF, HTN, PVD, lower extremity cellulitis, chronic venous stasis ulcer Ht: 68 in Wt: 140 lb BMI: 21.3 kg/m2 IBW: [address] Assessment: 01/05: 68 YOM admitted for CHF exacerbation, pt seen today per dx screen for CHF. Pt discussed during AM rounds, pt reportedly with unsafe living conditions REHAB TECHNICIAN, SW following. Pt with family at bedside at time of visit. Pt reports good appetite and po intake REHAB TECHNICIAN. Pt denies any difficulties chewing or swallowing. Pt denies any N/V/C/D. Pt reports UBW of 150# within the past 3 months, wt loss related to fluid shifts due to CHF and reported edema. Pt and family receptive to diet education at time of visit. Pt provided with heart failure nutrition therapy handouts and educated on high Na foods to avoid, why to avoid them, and meal planning. Pt educated on fluid sources as well. No questions at this time. Chart reviewed. Labs and meds reviewed. Will monitor and continue to follow. Current Diet: Cardiac Malnutrition Evaluation (01/05/19) The patient does not meet criteria for a specified degree of malnutrition at this time. Will re-evaluate at follow-up as appropriate. Diet Education Needs Assessment: Diet education indicated, heart failure nutrition therapy education provided Nutrition Care Level: Low Signed: Ester Johnson RD, LD, [facility]
--- NOTE | 2019-01-05 19:15 | NUR ---
Patient visited in room during nursing rounds. Patient alert and oriented x3. No distress or discomfort noted. Pt with multiple dried reddish lesions and erythema areas on both legs (below the knees). Pt on scheduled medication ointment. Pt states both legs are too weak at this time to walk. Pt uses urinal prn. Pt on scheduled IV antibiotics. Call hunter within reach. Will monitor closely.
[2019-01-05] MEDS: METOPROLOL SUCCINATE 25 MG TAB XL PO SCH (20:42)
[2019-01-05] MEDS: CLONAZEPAM 0.5 MG TAB PO SCH (20:49)
[2019-01-06] VITALS (7 sets, daily range): BP systolic 90–127; BP diastolic 61–84
[2019-01-06] MEDS: CLINDAMYCIN 300MG 50 ML IV SCH ×4 (04:28→21:45)
--- NOTE | 2019-01-06 08:45 | NUR ---
Pt received resting in bed. Call hunter within reach. Meds given as ordered. Emotional support given. Pt is for possible AICD placement.
[2019-01-06] MEDS: FLUOCINONIDE 0.05% 1 EA/15 GM TUBE TOP SCH ×2 (08:46→21:30)
[2019-01-06] MEDS: POTASSIUM CHLORIDE 20 MEQ TAB CR PO SCH ×3 (08:46→13:04)
[2019-01-06] MEDS: LISINOPRIL 2.5 MG TAB PO SCH (08:47)
[2019-01-06] MEDS: FUROSEMIDE INJ 10 MG/ML 4 ML VIAL IV SCH ×2 (08:47→17:22)
[2019-01-06] MEDS ORDERED: ENOXAPARIN SOD INJ 60 MG/0.6 ML SYR SC SCH (09:00)
--- NOTE | 2019-01-06 19:40 | NUR ---
Patient visited in room during nursing rounds. Patient alert and oriented x3. No distress or discomfort noted. Pt with multiple dried reddish lesions and erythema areas on both legs (below the knees). Pt on scheduled medication ointment. Pt ambulates in room prn with walker use and standby assist. Pt uses urinal prn. Pt on scheduled IV antibiotics. Pt aware he will be NPO at midnight and will have AICD placement tomorrow by Dr. Thompson. Call hunter within reach. Will monitor closely.
[2019-01-06] MEDS: CLONAZEPAM 0.5 MG TAB PO SCH (21:30)
[2019-01-06] MEDS: METOPROLOL SUCCINATE 25 MG TAB XL PO SCH (21:30)
[2019-01-07] VITALS (20 sets, daily range): BP systolic 97–143; BP diastolic 58–107
[2019-01-07] MEDS: CLINDAMYCIN 300MG 50 ML IV SCH (04:01)
[2019-01-07 06:38] LABS: BASOPHILS # (AUTO) 0.1 (0.0-0.1); BASOPHILS % 0.6 % (0.0-1.0); EOSINOPHILS # (AUTO) 0.1 (0.0-0.4); EOSINOPHILS % 0.5 % (0.0-6.0); HEMATOCRIT 41.3 % (38.2-49.6); HEMOGLOBIN 13.2 g/dL (14.0-18.0); LYMPHOCYTES # (AUTO) 1.4 (1.0-3.2); LYMPHOCYTES % 14.1 % (18.0-39.1); MEAN CORPUSCULAR HEMOGLOBIN 32.3 pg (28-32); MONOCYTES # (AUTO) 1.2 (0.2-0.8); MONOCYTES % 12.2 % (4.4-11.3); NEUTROPHILS # (AUTO) 7.3 (2.1-6.9); NEUTROPHILS % 71.8 % (38.7-80.0); PLATELET COUNT 261 x10e3/uL (140-360); RED BLOOD COUNT 4.09 x10e6/uL (4.3-5.7); RED CELL DISTRIBUTION WIDTH 17.1 % (11.7-14.4)
[2019-01-07] MEDS ORDERED: MIDAZOLAM HCL 2 MG/2 ML VIAL ONE ×3 (06:49→09:18)
[2019-01-07] MEDS ORDERED: SODIUM CHLORIDE 0.9% 500ML 500 ML ONE (06:50)
[2019-01-07] MEDS ORDERED: BACITRACIN 50,000 UNIT VIAL ONE (06:50)
[2019-01-07] MEDS ORDERED: FENTANYL CITRATE/PF 100MCG/2 ML INJ ONE ×2 (06:50→09:19)
[2019-01-07] MEDS ORDERED: LIDOCAINE HCL 2% LOCAL 20 ML VIAL ONE (06:50)
[2019-01-07] MEDS ORDERED: SODIUM CHLORIDE 0.9% 1000ML 2,000 ML ONE (06:50)
[2019-01-07 07:02] LABS: ANION GAP 17.5 mmol/L (8-16); BLOOD UREA NITROGEN 29 mg/dL (7-26); BUN/CREATININE RATIO 30 (6-25); CALCIUM 9.6 mg/dL (8.4-10.2); CARBON DIOXIDE 22 mmol/L (22-29); CHLORIDE 98 mmol/L (98-107); CREATININE, SERUM 0.98 mg/dL (0.72-1.25); EST GLOMERULAR FILTRATION RATE > 60 ML/MIN (60-); GLUCOSE 99 mg/dL (74-118); SODIUM 132 mmol/L (136-145)
[2019-01-07 07:12] LABS: POTASSIUM 5.5 mmol/L (3.5-5.1)
[2019-01-07] MEDS ORDERED: SODIUM BICARBONATE 8.4% SYRING 50 ML ONE (07:35)
[2019-01-07] MEDS ORDERED: CEFAZOLIN SOD 1 GM VIAL ONE ×2 (07:35→07:36)
[2019-01-07] MEDS ORDERED: VANCOMYCIN 1GM/NS 250 ML 250 ML ONE (07:35)
--- NOTE | 2019-01-07 08:23 | NUR ---
ORDERS FOR SNF EVAL CHOICE LETTER FOR [facility] ON CHART CALLED AND FAXED INFO TO MEHUL AT [facility] [phone] FAX [phone] CONFIRMATION REC'D
--- NOTE | 2019-01-07 08:32 | NUR ---
RECEIVED RETURN CALL FROM DR. CASTILLO REGARDING PATIENT'S POTASSIUM LEVEL OF 5.5. DR. CASTILLO INFORMED PATIENT IS IN NURSE PRACTITIONER PHYSICIAN ASSISTANT FOR PROCEDURE. DR. CASTILLO ALSO INFORMED PATIENT RECEIVED SCHEDULED 20 MEQ OF POTASSIUM DAILY. ORDER TO NOT GIVE 20 MEQ OF POTASSIUM AND TO ADMINISTER LASIX ONCE PATIENT RETURNS TO THE UNIT. NO ORDER RECEIVED FOR PATIENT WHILE IN NURSE PRACTITIONER PHYSICIAN ASSISTANT.
[2019-01-07] MEDS: POTASSIUM CHLORIDE 20 MEQ TAB CR PO SCH (08:44)
[2019-01-07] MEDS: FUROSEMIDE INJ 10 MG/ML 4 ML VIAL IV SCH ×2 (09:00→17:09)
[2019-01-07] MEDS: LISINOPRIL 2.5 MG TAB PO SCH (09:00)
--- NOTE | 2019-01-07 09:46 | NUR ---
0946am Received pt from research laboratory technician to rm #10 Left Bivad placed per Dr Thompson. Identifier x2(Verbal) per CRISTIANE Iraheta (Sedation RN Teacher Of Gifted Students )Pt with gasping breaths. Pt received 125 Fentanyl and 5 Versed in research laboratory technician. Non responsive. Pin point pupils.O2 per 4lmn on NC Respiratory and Rapid called Team arrived with House Supv. Tia RN and Dr Mani Loyola and ED Md Dr Ndiaye at bedside . Pt regained consciousness with Narcan, ambu-bagging 100%. Rizwan ED Supv at bedside. Applying En tital CO2 measurements.See Rapid Response notes for more info.CRISTIANE Iraheta Teacher Of Gifted Students remains at bedside for stabilization of pt. ds/cristiane
[2019-01-07] MEDS ORDERED: NALOXONE HCL INJ 0.4 MG/ML AMP ONE ×2 (09:53→10:00)
[2019-01-07] MEDS ORDERED: FLUMAZENIL 0.5MG/ 5ML VIAL ONE (09:55)
--- NOTE | 2019-01-07 10:36 | NUR ---
Industrial Maintenance Instructor responded to Rapid Response in Board Of [employer]. No family present. Provided calming pastoral presence for staff. Will follow up as able. MALATHI Fish Spiritual Care Department O: [phone] Pager: [phone] ([phone] number calling from)
[2019-01-07] MEDS ORDERED: SODIUM CHLORIDE 0.9% 1000ML 1,000 ML ONE (10:47)
--- NOTE | 2019-01-07 10:50 | NUR ---
Crown Assembly Machine Operator followed up with pt's sister, Jessica. Pt's sister stated pt has no yarsanism preference. Pt's sister expressed appreciation for support. Crown Assembly Machine Operator informed pt's sister of how to reach teaching fellow, if needed. MALATHI Michaelslain Spiritual Care Department O: [phone] Pager: [phone] ([phone] number calling from)
--- NOTE | 2019-01-07 10:53 | NUR ---
EDUCATED ABOUT IMM, SIGNED, FILED IN CHART, WITH COPY LEFT WITH FAMILY AT BEDSIDE.
--- NOTE | 2019-01-07 10:55 | NUR ---
TRANSFER REPORT GIVEN TO ICU NURSE- PATIENT TRANSFERRING FROM TAX DIRECTOR TO ICU.
--- NOTE | 2019-01-07 11:28 | Diagnostic Imaging Report ---
EXAMINATION: CHEST XRAY POST PROCEDURE INDICATION: Status post respiratory arrest. COMPARISON: Chest radiograph 01/03/2019. FINDINGS: TUBES and LINES: Interval placement of a left-sided AICD device with leads overlying the right atrium and right ventricle. LUNGS: There are increasing perihilar and interstitial opacities. Increasing patchy opacities in the lower lungs. PLEURA: Increasing moderate bilateral pleural effusions. HEART AND MEDIASTINUM: Moderate enlargement of the cardiomediastinal silhouette. BONES AND SOFT TISSUES: No acute osseous abnormality. UPPER ABDOMEN: No free air under the diaphragm. IMPRESSION: Increasing severe pulmonary edema and moderate bilateral pleural effusions. Opacities at the lung bases likely reflect atelectasis or alveolar edema. Pneumonia is possible in the appropriate clinical context. Signed by: Dr. Phyllis Smallwood MD on 01/07/2019 11:24 AM
--- NOTE | 2019-01-07 11:41 | NUR ---
CALLED AND INFORMED DR. CASTILLO THAT PATIENT HAD A RAPID RESPONSE IN [facility]IST[facility] AND IS NOW BEING INTUBATED IN [facility]. PATIENT WILL TRANSFER TO ICU. ORDER TO CONSULT DR. PRUETT FOR PULMONARY EDEMA AND TO ADMINISTER SCHEDULED LASIX TO PATIENT.
--- NOTE | 2019-01-07 11:45 | NUR ---
5215 Called radiology dept regarding stat results of chest xray Dr Smallwood states pt in PE and notified ED and Dr Hammer 80mg ivp Lasix given and Jose Ha form ICU place meredith catheter for urine MOnitoring. 100cc concentrated urine and total 200cc urine in bag post 1hr of ivp lasix in warehouse general laborer recovery area. adelia/jose juan
[2019-01-07] MEDS ORDERED: FUROSEMIDE INJ 10 MG/ML 4 ML VIAL ONE (11:47)
[2019-01-07] MEDS ORDERED: VANCOMYCIN 1GM/NS 250 ML 250 ML IV ONE (12:00)
[2019-01-07] MEDS ORDERED: SOD POLYSTYRENE SULFONATE SUSP 15 GM/60 ML BTL PO NR ×2 (12:00→15:15)
--- NOTE | 2019-01-07 12:15 | NUR ---
Patient transferred to ICU. Patient will be removed from therapy services due to decline in medical status. Please re-consult when patient stable. Thank you. Addendum: 01/07/19 at 1216 by Sonal Madden PT Amended: Links added.
[2019-01-07 12:21] LABS: BASOPHILS % 0.3 % (0.0-1.0); EOSINOPHILS % 0.1 % (0.0-6.0); HEMATOCRIT 38.9 % (38.2-49.6); HEMOGLOBIN 12.3 g/dL (14.0-18.0); LYMPHOCYTES # (AUTO) 1.2 (1.0-3.2); LYMPHOCYTES % 9.9 % (18.0-39.1); MEAN CORPUSCULAR HEMOGLOBIN 32.3 pg (28-32); MEAN CORPUSCULAR HGB CONC 31.6 g/dL (31-35); MEAN CORPUSCULAR VOLUME 102.1 fL (81-99); MONOCYTES # (AUTO) 1.3 (0.2-0.8); MONOCYTES % 10.8 % (4.4-11.3); NEUTROPHILS # (AUTO) 9.5 (2.1-6.9); NEUTROPHILS % 78.1 % (38.7-80.0); PLATELET COUNT 230 x10e3/uL (140-360); RED BLOOD COUNT 3.81 x10e6/uL (4.3-5.7); RED CELL DISTRIBUTION WIDTH 17.3 % (11.7-14.4)
[2019-01-07 12:32] LABS: ABG HCO3 16 mmol/L (23-28); ABG PCO2 25 mmHg (41-51); ABG PH 7.41 (7.31-7.41); ABG PO2 232 mmHg (80-105)
[2019-01-07 12:43] LABS: ANION GAP 20.5 mmol/L (8-16); BLOOD UREA NITROGEN 29 mg/dL (7-26); BUN/CREATININE RATIO 28 (6-25); CALCIUM 8.7 mg/dL (8.4-10.2); CARBON DIOXIDE 19 mmol/L (22-29); CHLORIDE 98 mmol/L (98-107); CREATININE, SERUM 1.03 mg/dL (0.72-1.25); EST GLOMERULAR FILTRATION RATE > 60 ML/MIN (60-); GLUCOSE 80 mg/dL (74-118); POTASSIUM 5.5 mmol/L (3.5-5.1); SODIUM 132 mmol/L (136-145)
--- NOTE | 2019-01-07 12:45 | NUR ---
5006 Dr Hammer here examined pt in Cath #10 prior to transport to ICU. P currently on Bipap standard settings per Respiratory. Sat 99% BV Paced 1:1. IV #20 left hand IV fluids off has 200cc in meredith bag s/p IVP Lasix 80mg. Back to baseline orientation, Family at bedside and Dr Hammer An ED MD spoke with family.Report phoned to Raghav SAUER Transported to ICU per bed. with zoll monitor Tele monitor from 286 room returned to monitor room. Awaiting CMP,BNP and CBC results CXR (PE)results per Dr Smallwood's verbal report. Notified to Dr Hammer.(Attending) Dr Schroeder(ED) awaiting disposition of ICU bed. No gross issues of pain,legs edematous,no active bleeding at pacer insertion site and pacer functioning Bivad Dr Lee in sert today. Family,Floor staff notified pt transferred to Icu for further monitoring. RNx2 with respirator escort to Icu. ds/rn
--- NOTE | 2019-01-07 13:00 | NUR ---
Received verbal report from Dilcia Matthews in geochemical laboratory technician and patient received to room on his own hospital bed and wearing BiPap and O2 sats are 100%. Respirations are unlabored and regular. V/S are stable. Patient denies any pain and is somewhat lethargic, but arousable and when called by name. Sister- Lory- at bedside and has POA and copy of POA is on chart under "Admission". Patient has left gauze dressing to upper left chest area and it is dry and intact. Left arm is in sling and patient instructed to not get out of bed and bed alarm turned on.
[2019-01-07] MEDS: FLUOCINONIDE 0.05% 1 EA/15 GM TUBE TOP SCH ×2 (14:45→21:44)
[2019-01-07] MEDS: PIPER-TAZ 3.375 GM 50 ML IV SCH ×2 (15:00→17:26)
[2019-01-07] MEDS ORDERED: ACETAMINOPHEN/CODEINE 300MG - 30MG TAB PO PRN (15:30)
[2019-01-07] MEDS ORDERED: SODIUM CHLORIDE 0.9% 250ML 250 ML ONE (15:39)
[2019-01-07] MEDS: LEVALBUTEROL HCL SOLN NEBU 0.63 MG/3 ML NEB INH SCH ×2 (15:40→19:00)
--- NOTE | 2019-01-07 19:40 | Consultation ---
DATE OF CONSULTATION: 01/07/2019 CONSULTING PHYSICIAN: Dr. Hammer. REASON FOR THE CONSULT: Acute respiratory failure, post cardiac cath, post pacemaker placement. HISTORY OF PRESENT ILLNESS: Mr. Park is a 68-year-old male, who I was asked to see the patient stat for worsening shortness of breath. He underwent biventricular pacemaker placement for congestive heart failure. I am unable to see the most recent echo in the computer. He has a history of smoking. He smokes 1-2 packs per day for the last 45 years. He reports he was short of breath and apneic when he came out of the procedure. He was given Narcan and after the reversal of fentanyl, he started feeling better and he was breathing okay. However, he was having episode where he was tachypneic and was having episodes of apnea. The patient was put on BiPAP. He is breathing better. He is awake, alert, following commands, and responding to questions appropriately. REVIEW OF SYSTEMS: GENERAL: Denies any fever or chills. HEAD: Denies any head trauma. ENT: Denies any earaches. CVS: Reports some chest congestion and chest pressure. RESPIRATORY: In respiratory distress and wheezing. GI: Denies any nausea or vomiting. MUSCULOSKELETAL: Denies any arthralgias or myalgias. The rest of the review of systems are negative except as in HPI. PAST MEDICAL HISTORY: 1. Hypertension, smoker, hyperlipidemia, and congestive heart failure. The patient was seen by Dr. Renan Rucker. 2. History of hepatitis C. FAMILY AND SOCIAL HISTORY: He has been a smoker. Denies any alcohol use. PHYSICAL EXAMINATION: VITAL SIGNS: Temperature 96.2, pulse of 84, and blood pressure 102/90. Right now, he is breathing almost 30 times a minute, however, and he is on BiPAP 50% with 12/8. HEENT: Head is atraumatic and normocephalic. I cannot do oral exam because of the BiPAP use. NECK: Supple. No JVD. CHEST: Occasional wheezing, reduced air entry in the bases. Few crackles. HEART: S1, S2 audible. Tachycardic. ABDOMEN: Soft and nontender. EXTREMITIES: Bilateral pedal edema up to the mid calves and chronic skin changes with redness and small punctate ulcers as well. LABORATORY AND RADIOGRAPHIC DATA: Labs at 6 o'clock this morning, 01/07, the chemistry is showing sodium of 132, potassium 5.5, BUN 29, and creatinine 0.98. Cardiac enzymes have been negative. BNP is 3698, this was on the . Today's labs, post rapid response is still pending. White count is 10,000 and hemoglobin 13.2. Blood gas, pH of 7.4 and the patient was put on a nonrebreather. The patient is hypoxic, but pO2 was 230. Exact blood gases are not in the computer at this moment. Chest x-ray, I have reviewed the images and compared it with the chest x-ray on the 01/03/2019, that was his first x-ray in the emergency room, it is showing dense right lower lobe infiltrate. This is my review, dense right lower lobe infiltrate and possible congestion. There is a left lower lobe infiltrate as well and the permanent pacemaker is seen with wires in the heart. Official report is showing increased severe pulmonary edema. ASSESSMENT/PLAN: Xavi Park is a 68-year-old male, came in with shortness of breath, bilateral pedal edema, high BNP, and worsening heart failure. It was decided to place a biventricular pacemaker. He had a pacemaker placement. Given fentanyl and Versed for the procedure. Post procedure, he became apneic, received Narcan with some response. He is awake, alert, and following commands and breathing better, but he is still tachypneic. He is on BiPAP. IMPRESSION: 1. Possible aspiration pneumonia, right lower lobe dense infiltrate. Possibility of congestive heart failure as well. The patient was in heart failure to begin with. 2. Heavy smoker, high likelihood of COPD. 3. Acute hypoxic respiratory failure. 4. Possible apnea likely due to medication effect with fentanyl and Versed. RECOMMENDATIONS: 1. Continue the patient on BiPAP. I have adjusted the settings, reduced the FiO2 and the patient appears to be comfortable, however, still tachypneic and need to be observed in ICU and may need intubation if does not improve. 2. I have changed the antibiotic to vancomycin and Zosyn, given him a stat dose of vancomycin and started the patient on IV Zosyn. Discontinue the clindamycin. 3. IV Lasix 80 mg x1 was given. He is already on 40 mg IV Lasix. 4. We will discontinue the Klonopin for now. Discussed with the patient and family member, the patient may require intubation if he does not respond to the BiPAP. Critical care time spent 50 minutes. MD TIM Ramos/KYLE /[id number]
[2019-01-07] MEDS: MINOCYCLINE HCL 50 MG CAP PO SCH (21:44)
[2019-01-07] MEDS: METOPROLOL SUCCINATE 25 MG TAB XL PO SCH (21:44)
[2019-01-08] VITALS (13 sets, daily range): BP systolic 105–122; BP diastolic 58–95
[2019-01-08] MEDS: PIPER-TAZ 3.375 GM 50 ML IV SCH ×5 (00:16→23:50)
[2019-01-08] MEDS: LEVALBUTEROL HCL SOLN NEBU 0.63 MG/3 ML NEB INH SCH ×4 (02:20→18:45)
--- NOTE | 2019-01-08 07:58 | NUR ---
patient sitting up at edge of bed for breakfast, only after encouraging to sit up and patient was claiming to be "immobile"
[2019-01-08] MEDS: FUROSEMIDE INJ 10 MG/ML 4 ML VIAL IV SCH ×2 (08:21→17:55)
[2019-01-08] MEDS: LISINOPRIL 2.5 MG TAB PO SCH (08:21)
[2019-01-08] MEDS: MINOCYCLINE HCL 50 MG CAP PO SCH ×2 (08:21→20:22)
[2019-01-08 08:34] LABS: ANION GAP 14.7 mmol/L (8-16); BLOOD UREA NITROGEN 29 mg/dL (7-26); BUN/CREATININE RATIO 29 (6-25); CALCIUM 8.8 mg/dL (8.4-10.2); CARBON DIOXIDE 23 mmol/L (22-29); CHLORIDE 99 mmol/L (98-107); CREATININE, SERUM 1.01 mg/dL (0.72-1.25); EST GLOMERULAR FILTRATION RATE > 60 ML/MIN (60-); GLUCOSE 93 mg/dL (74-118); POTASSIUM 3.7 mmol/L (3.5-5.1); SODIUM 133 mmol/L (136-145)
[2019-01-08] MEDS: FLUOCINONIDE 0.05% 1 EA/15 GM TUBE TOP SCH ×2 (09:10→20:44)
--- NOTE | 2019-01-08 10:25 | NUR ---
Received patient from ICU. Patient A/O X3, unlabored respirations on RA. No signs of distress at this time. Pacemaker dressing dry/intact, sling in place. Hennessy with clear yellow urine. Left hand 20 gauge IV SL. Call light in reach, bed low, wheels locked, side rails x2. Will continue to monitor.
[2019-01-08] MEDS ORDERED: SODIUM CHLORIDE 0.9% 250ML 250 ML ONE (12:26)
--- NOTE | 2019-01-08 14:42 | NUR ---
IV leaking, removed Left wrist IV. New 20 gauge IV started to Left FA.
[2019-01-08] MEDS: METOPROLOL SUCCINATE 25 MG TAB XL PO SCH (20:22)
[2019-01-09] VITALS (8 sets, daily range): BP systolic 97–109; BP diastolic 55–69
[2019-01-09] MEDS: LEVALBUTEROL HCL SOLN NEBU 0.63 MG/3 ML NEB INH SCH ×4 (02:40→19:35)
[2019-01-09] MEDS: PIPER-TAZ 3.375 GM 50 ML IV SCH ×4 (05:46→23:47)
--- NOTE | 2019-01-09 07:13 | NUR ---
Received patient and walking rounds complete. Patient awake resting in bed, no signs of distress. Call light in reach, will continue to monitor.
[2019-01-09] MEDS: FUROSEMIDE INJ 10 MG/ML 4 ML VIAL IV SCH (08:25)
[2019-01-09] MEDS: LISINOPRIL 2.5 MG TAB PO SCH (08:25)
[2019-01-09] MEDS: FLUOCINONIDE 0.05% 1 EA/15 GM TUBE TOP SCH ×2 (08:26→21:00)
[2019-01-09] MEDS: MINOCYCLINE HCL 50 MG CAP PO SCH ×2 (08:26→21:00)
--- NOTE | 2019-01-09 09:15 | NUR ---
Patient A/O X3, even respirations on RA. Bowel sounds active. Left upper chest pacemaker dressing dry/intact. Left FA 20 gauge IV SL. Hennessy in place with clear yellow urine. BLE 1+ non-pitting edema. Redness/scaly lesions to lower extremities. No complaints of pain or discomfort at this time. Call light in reach, will continue to monitor.
--- NOTE | 2019-01-09 11:02 | NUR ---
Wound care performed, call light in reach, will continue to monitor.
[2019-01-09 11:32] LABS: ANION GAP 11.7 mmol/L (8-16); BLOOD UREA NITROGEN 17 mg/dL (7-26); BUN/CREATININE RATIO 21 (6-25); CALCIUM 8.3 mg/dL (8.4-10.2); CARBON DIOXIDE 27 mmol/L (22-29); CHLORIDE 96 mmol/L (98-107); CREATININE, SERUM 0.81 mg/dL (0.72-1.25); EST GLOMERULAR FILTRATION RATE > 60 ML/MIN (60-); GLUCOSE 109 mg/dL (74-118); SODIUM 132 mmol/L (136-145)
[2019-01-09 11:41] LABS: POTASSIUM 2.7 mmol/L (3.5-5.1)
[2019-01-09 11:45] LABS: BASOPHILS # (AUTO) 0.1 (0.0-0.1); BASOPHILS % 0.6 % (0.0-1.0); EOSINOPHILS # (AUTO) 0.1 (0.0-0.4); EOSINOPHILS % 1.5 % (0.0-6.0); HEMATOCRIT 34.4 % (38.2-49.6); HEMOGLOBIN 11.1 g/dL (14.0-18.0); LYMPHOCYTES # (AUTO) 1.2 (1.0-3.2); LYMPHOCYTES % 14.5 % (18.0-39.1); MEAN CORPUSCULAR HEMOGLOBIN 32.3 pg (28-32); MEAN CORPUSCULAR HGB CONC 32.3 g/dL (31-35); MONOCYTES # (AUTO) 1.1 (0.2-0.8); MONOCYTES % 14.1 % (4.4-11.3); NEUTROPHILS # (AUTO) 5.5 (2.1-6.9); NEUTROPHILS % 68.7 % (38.7-80.0); PLATELET COUNT 161 x10e3/uL (140-360); RED BLOOD COUNT 3.44 x10e6/uL (4.3-5.7)
[2019-01-09] MEDS ORDERED: POTASSIUM CHLORIDE 10MEQ EA PO NR (11:45)
--- NOTE | 2019-01-09 11:48 | NUR ---
Notified Dr. Hammer of 2.7 potassium level. Order for 40 Meq Potassium.
[2019-01-09] MEDS: FUROSEMIDE 40 MG TAB PO SCH (12:00)
[2019-01-09] MEDS: SPIRONOLACTONE 25 MG TAB PO SCH (12:13)
--- NOTE | 2019-01-09 12:26 | NUR ---
Hennessy catheter removed. Catheter tip intact. Patient due to void by 1830.
[2019-01-09 14:11] LABS: ANION GAP 10.7 mmol/L (8-16); BLOOD UREA NITROGEN 17 mg/dL (7-26); BUN/CREATININE RATIO 20 (6-25); CALCIUM 8.4 mg/dL (8.4-10.2); CARBON DIOXIDE 30 mmol/L (22-29); CHLORIDE 95 mmol/L (98-107); CREATININE, SERUM 0.84 mg/dL (0.72-1.25); EST GLOMERULAR FILTRATION RATE > 60 ML/MIN (60-); GLUCOSE 87 mg/dL (74-118); SODIUM 133 mmol/L (136-145)
[2019-01-09 14:13] LABS: POTASSIUM 2.7 mmol/L (3.5-5.1)
[2019-01-09] MEDS ORDERED: POTASSIUM CHLORIDE 20 MEQ TAB CR PO NR (14:45)
[2019-01-09] MEDS: RIVAROXABAN 20 MG TABLET PO SCH (17:29)
--- NOTE | 2019-01-09 17:43 | NUR ---
PATIENT HAS VOIDED SINCE FITZGERALD WAS REMOVED.
--- NOTE | 2019-01-09 20:00 | NUR ---
INTIAL ASSESSMENT COMPLETE, PT IN BED, URINAL AT BEDSIDE, VS STABLE, NO DISTRESS NOTED, CALL LIGHT IN REACH, PT HAS TELE ON, LEGS WITHOUT EDEMA, SCALY, FLAKY, IV INTACT, TOLD TO CALL FOR NEEDS
[2019-01-09] MEDS: METOPROLOL SUCCINATE 25 MG TAB XL PO SCH (21:00)
[2019-01-10] VITALS (7 sets, daily range): BP systolic 98–121; BP diastolic 64–74
[2019-01-10] MEDS: LEVALBUTEROL HCL SOLN NEBU 0.63 MG/3 ML NEB INH SCH ×4 (00:30→19:54)
--- NOTE | 2019-01-10 01:30 | NUR ---
TELE CALLED, STATES HR AT 115, CHECK ON PT, PT FACE ORTIZ/BLUE IN NATURE, TEETH CLAMMED DOWN, O2 2L NC ON PT, PT STIFF AND RIDGED, EYES OPEN BUT NOT RESPONDING TO QUESTIONS, REPOSITIONED PT IN BED, O2 TURNED UP TO 4L NC, VS TAKEN, 147/70, 106, O2 SAT 99%, RESP. 20 PT BEGAN TO RELAX, ANSWER QUESTIONS APPROPRIATELY, PT COLOR RETURNING TO NORMAL PINK, PT STATES HE DOES NOT KNOW WHAT HE WAS DOING BEFORE THE EPISODE, DEFIBRILLATOR DID NOT SHOCK PT, PT STATES HE HAD HX OF SEIZURES BUT NEVER TOOK MEDICATIONS FOR IT, PT TALKING NOW, VS STABLE, NO ISSUES AT THIS TIME. CONTINUE TO MONITOR PT, STRIPS RUN FOR CHART AT TIME OF EPISODE, NO REAL FINDINGS ON THE EKG STRIPS.
--- NOTE | 2019-01-10 02:30 | NUR ---
FREQUENT ROOM CHECKS ON PT, NO DISTRESS NOTED, CALL LIGHT IN REACH, TELE ON PT, VS STABLE
--- NOTE | 2019-01-10 04:00 | NUR ---
PT AWAKE IN BED, VS STABLE, URINAL USED, CALL LIGHT IN REACH, BED ALARM ON, NO DISTRESS NOTED
[2019-01-10] MEDS: PIPER-TAZ 3.375 GM 50 ML IV SCH (06:00)
[2019-01-10 06:12] LABS: BASOPHILS % 0.5 % (0.0-1.0); EOSINOPHILS # (AUTO) 0.2 (0.0-0.4); EOSINOPHILS % 1.8 % (0.0-6.0); HEMATOCRIT 35.6 % (38.2-49.6); HEMOGLOBIN 11.4 g/dL (14.0-18.0); LYMPHOCYTES # (AUTO) 1.5 (1.0-3.2); LYMPHOCYTES % 18.3 % (18.0-39.1); MEAN CORPUSCULAR HEMOGLOBIN 31.9 pg (28-32); MEAN CORPUSCULAR VOLUME 99.7 fL (81-99); MONOCYTES % 12.5 % (4.4-11.3); NEUTROPHILS # (AUTO) 5.5 (2.1-6.9); NEUTROPHILS % 66.3 % (38.7-80.0); PLATELET COUNT 167 x10e3/uL (140-360); RED BLOOD COUNT 3.57 x10e6/uL (4.3-5.7); RED CELL DISTRIBUTION WIDTH 17.1 % (11.7-14.4)
--- NOTE | 2019-01-10 06:29 | NUR ---
PT AWAKE, VS STABLE, NO DISTRESS NOTED, CALL LIGHT IN REACH
[2019-01-10 06:39] LABS: ANION GAP 13.3 mmol/L (8-16); BLOOD UREA NITROGEN 16 mg/dL (7-26); BUN/CREATININE RATIO 22 (6-25); CALCIUM 8.4 mg/dL (8.4-10.2); CARBON DIOXIDE 26 mmol/L (22-29); CHLORIDE 95 mmol/L (98-107); CREATININE, SERUM 0.74 mg/dL (0.72-1.25); EST GLOMERULAR FILTRATION RATE > 60 ML/MIN (60-); GLUCOSE 105 mg/dL (74-118); POTASSIUM 3.3 mmol/L (3.5-5.1); SODIUM 131 mmol/L (136-145)
[2019-01-10] MEDS: LISINOPRIL 2.5 MG TAB PO SCH (08:14)
[2019-01-10] MEDS ORDERED: POTASSIUM CHLORIDE 10MEQ EA PO ONE (08:30)
[2019-01-10] MEDS: SPIRONOLACTONE 25 MG TAB PO SCH ×2 (08:51→11:38)
[2019-01-10] MEDS: FUROSEMIDE 40 MG TAB PO SCH ×2 (08:52→11:38)
[2019-01-10] MEDS: MINOCYCLINE HCL 50 MG CAP PO SCH ×2 (08:52→21:05)
[2019-01-10] MEDS: METOPROLOL SUCCINATE 25 MG TAB XL PO SCH ×2 (08:56→16:48)
[2019-01-10] MEDS: FLUOCINONIDE 0.05% 1 EA/15 GM TUBE TOP SCH ×2 (10:21→22:58)
--- NOTE | 2019-01-10 11:30 | NUR ---
LEFT MESSAGE FOR DR. CASTILLO FOR ORDERS TO RESUME PHYSICAL THERAPY. PT WAS PUT ON HOLD WHEN TRANSFERRED TO ICU. AWAITING CALL BACK.
[2019-01-10] MEDS: RIVAROXABAN 20 MG TABLET PO SCH (16:48)
[2019-01-11] VITALS (7 sets, daily range): BP systolic 102–125; BP diastolic 61–78
[2019-01-11] MEDS: LEVALBUTEROL HCL SOLN NEBU 0.63 MG/3 ML NEB INH SCH ×4 (01:25→20:45)
[2019-01-11 06:53] LABS: ANION GAP 23.9 mmol/L (8-16); BLOOD UREA NITROGEN 29 mg/dL (7-26); BUN/CREATININE RATIO 27 (6-25); CALCIUM 9.4 mg/dL (8.4-10.2); CARBON DIOXIDE 17 mmol/L (22-29); CHLORIDE 94 mmol/L (98-107); CREATININE, SERUM 1.08 mg/dL (0.72-1.25); EST GLOMERULAR FILTRATION RATE > 60 ML/MIN (60-); POTASSIUM 4.9 mmol/L (3.5-5.1); SODIUM 130 mmol/L (136-145)
[2019-01-11 07:00] LABS: GLUCOSE 51 mg/dL (74-118)
--- NOTE | 2019-01-11 07:00 | NUR ---
RECEIVED CALL FROM LAB GLUCOSE 57 PT ASLEEP, EASY TO WAKE. PROVIDED JUICE X2. Addendum: 01/11/19 at 0935 by Barbara Loyola RN CORRECTION GLUCOSE 51
--- NOTE | 2019-01-11 07:47 | NUR ---
RECHECK GLUCOSE NOW 67.
[2019-01-11] MEDS: LISINOPRIL 2.5 MG TAB PO SCH (08:53)
[2019-01-11] MEDS: FUROSEMIDE 40 MG TAB PO SCH ×2 (09:04→12:31)
[2019-01-11] MEDS: MINOCYCLINE HCL 50 MG CAP PO SCH ×2 (09:04→20:29)
[2019-01-11] MEDS: SPIRONOLACTONE 25 MG TAB PO SCH ×2 (09:04→12:31)
[2019-01-11] MEDS: FLUOCINONIDE 0.05% 1 EA/15 GM TUBE TOP SCH ×2 (09:05→20:29)
[2019-01-11] MEDS: METOPROLOL SUCCINATE 25 MG TAB XL PO SCH ×2 (09:05→16:41)
--- NOTE | 2019-01-11 09:05 | NUR ---
PT SITTING ON EDGE OF BED EATING BREAKFAST.
--- NOTE | 2019-01-11 13:55 | NUR ---
PT SISTER STATES PT IS AGREEABLE FOR HEARTH CATH. PER PT WHEN DR. GO MADE ROUNDS PT TOLD HIM HE DID NOT WANT THE PROCEDURE DONE BUT HE HAS CHANGED HIS MIND. PAGED DR. GO AT THIS TIME TO NOTIFY. AWAITING CALL BACK.
--- NOTE | 2019-01-11 14:25 | NUR ---
RECEIVED CALL BACK FROM DOROTHY LONG WITH DR. GO REGARDING HEART CATH STATES SHE WILL CHECK DR. GO'S SCHEDULE AND NOTIFY NURSE.
--- NOTE | 2019-01-11 16:33 | NUR ---
SPOKE TO DOROTHY LONG WITH DR. GO STATES HOLD SAMUEL TODAY AND TOMORROW FOR HEART CATH ON . SHE WILL PUT IN ORDERS TOMORROW WHEN SHE MAKES ROUNDS. SAMUEL PUT ON HOLD AT THIS TIME.
[2019-01-12] VITALS (7 sets, daily range): BP systolic 104–124; BP diastolic 54–70
[2019-01-12] MEDS: LEVALBUTEROL HCL SOLN NEBU 0.63 MG/3 ML NEB INH SCH ×4 (01:00→19:00)
--- NOTE | 2019-01-12 07:25 | NUR ---
pt resting in bed aa0x3, pt denies any pain at this time. left fa 20 is clean and dry. pt is on 3l nc. dressing to the left upper chest dry and intact s/p pacemaker placement. sling at bedside. pt refusing to have it on. pt verbalizes understanding regarding no elevation of left extremity above chest level. pt is on 1l restriction and aware of strict i+0. lower legs are open to air with multiple scab wounds present. will continue to care for pt at this time, side railsx2, bed wheels locked, call light is within easy reach, instructed to call for assistance if needed
[2019-01-12] MEDS: METOPROLOL SUCCINATE 25 MG TAB XL PO SCH ×2 (09:12→16:55)
[2019-01-12] MEDS: FUROSEMIDE 40 MG TAB PO SCH ×2 (09:12→12:14)
[2019-01-12] MEDS: SPIRONOLACTONE 25 MG TAB PO SCH ×2 (09:12→12:14)
[2019-01-12] MEDS: LISINOPRIL 2.5 MG TAB PO SCH (09:12)
[2019-01-12] MEDS: MINOCYCLINE HCL 50 MG CAP PO SCH ×2 (09:12→20:48)
--- NOTE | 2019-01-12 09:32 | NUR ---
md mendez has cancelled heart cath at this time, states this procedure can be done outpatient states to continue to hold xarelto until dc and start on lovenox for now . stop lovenox at dc
--- NOTE | 2019-01-12 10:37 | NUR ---
SPOKE TO MD PRUETT ABOUT ORDER TO APPLY TEDS ON AND ABOUT WOUND CARE RECOMMENDATION TO KEEP LEGS OPEN TO AIR. ORDER TO CANCEL ORDER
[2019-01-12] MEDS: FLUOCINONIDE 0.05% 1 EA/15 GM TUBE TOP SCH ×2 (10:47→20:48)
--- NOTE | 2019-01-12 15:34 | NUR ---
Met with patient. Explained IMM letter. Verbalized understanding and signed. Patient stated if he is discharged he will appeal because he states he is not ready. Copy placed at bedside per pt request for easy access. Original placed in chart.
[2019-01-12] MEDS: ENOXAPARIN INJ 80 MG/0.8 ML SYR SC SCH (20:48)
[2019-01-13] VITALS (8 sets, daily range): BP systolic 95–111; BP diastolic 60–68
[2019-01-13] MEDS: LEVALBUTEROL HCL SOLN NEBU 0.63 MG/3 ML NEB INH SCH ×4 (01:05→19:00)
[2019-01-13] MEDS: METOPROLOL SUCCINATE 25 MG TAB XL PO SCH ×2 (09:00→16:05)
[2019-01-13] MEDS: LISINOPRIL 2.5 MG TAB PO SCH (09:00)
[2019-01-13] MEDS: SPIRONOLACTONE 25 MG TAB PO SCH ×2 (09:20→12:00)
[2019-01-13] MEDS: FUROSEMIDE 40 MG TAB PO SCH ×2 (09:20→12:00)
[2019-01-13] MEDS: MINOCYCLINE HCL 50 MG CAP PO SCH ×2 (09:20→21:58)
[2019-01-13] MEDS: ENOXAPARIN INJ 80 MG/0.8 ML SYR SC SCH ×2 (09:20→21:58)
[2019-01-13] MEDS: FLUOCINONIDE 0.05% 1 EA/15 GM TUBE TOP SCH ×2 (13:20→21:58)
--- NOTE | 2019-01-13 17:21 | NUR ---
Follow-up Note RD Recommendation for Physician: - Continue Cardiac diet as ordered - Diet education provided 01/05 Plan of Care: RD following Nutrition reason for involvement: Follow up Primary Diagnose(s): CHF exacerbation PMH: CHF, HTN, PVD, lower extremity cellulitis, chronic venous stasis ulcer Ht: 68 in Wt: 140 lb; 148.38lb BMI: 21.3 kg/m2 IBW: [address] Assessment: 01/13: Pt was discussed during AM rounds. No labs drawn since 01/11. Visited pt in the room. Pt reported appetite comes and goes. PO >50%, per pt. No GI complains noted. Pt has some missing bottom teeth but refused texture modification. No swallowing difficulty noted. Will continue to monitor and follow. 01/05: 68 YOM admitted for CHF exacerbation, pt seen today per dx screen for CHF. Pt discussed during AM rounds, pt reportedly with unsafe living conditions FILL MANAGER, SW following. Pt with family at bedside at time of visit. Pt reports good appetite and po intake FILL MANAGER. Pt denies any difficulties chewing or swallowing. Pt denies any N/V/C/D. Pt reports UBW of 150# within the past 3 months, wt loss related to fluid shifts due to CHF and reported edema. Pt and family receptive to diet education at time of visit. Pt provided with heart failure nutrition therapy handouts and educated on high Na foods to avoid, why to avoid them, and meal planning. Pt educated on fluid sources as well. No questions at this time. Chart reviewed. Labs and meds reviewed. Will monitor and continue to follow. Current Diet: Cardiac Malnutrition Evaluation (01/05/19) The patient does not meet criteria for a specified degree of malnutrition at this time. Will re-evaluate at follow-up as appropriate. Diet Education Needs Assessment: Diet education indicated, heart failure nutrition therapy education provided on 01/05 Nutrition Care Level: Low Signed: Angelina Barrios, MS, RD, LD
[2019-01-14 00:46] VITALS: BP 111/64
[2019-01-14] MEDS: LEVALBUTEROL HCL SOLN NEBU 0.63 MG/3 ML NEB INH SCH ×3 (01:00→13:00)
[2019-01-14 04:00] VITALS: BP 111/69
--- NOTE | 2019-01-14 07:00 | NUR ---
BEDSIDE ROUNDS COMPLETE NO DISTRESS NOTED, UPDATED ON POC VOICED UNDERSTANDING, DENIES PAIN AT THIS TIME, DSG TO L UPPER CHEST WITH SLING IN PLACE, BLE WITH SCABS NOTED, NO OTHER CO VOICED CALL LIGHT IN REACH WILL CONTINUE TO MONITOR
[2019-01-14 08:17] VITALS: BP 112/66
[2019-01-14 08:31] LABS: BASOPHILS % 0.4 % (0.0-1.0); EOSINOPHILS # (AUTO) 0.1 (0.0-0.4); EOSINOPHILS % 1.2 % (0.0-6.0); HEMATOCRIT 35.3 % (38.2-49.6); HEMOGLOBIN 11.5 g/dL (14.0-18.0); LYMPHOCYTES # (AUTO) 1.3 (1.0-3.2); LYMPHOCYTES % 16.3 % (18.0-39.1); MEAN CORPUSCULAR HEMOGLOBIN 32.4 pg (28-32); MEAN CORPUSCULAR HGB CONC 32.6 g/dL (31-35); MEAN CORPUSCULAR VOLUME 99.4 fL (81-99); MONOCYTES # (AUTO) 0.9 (0.2-0.8); MONOCYTES % 11.5 % (4.4-11.3); NEUTROPHILS # (AUTO) 5.6 (2.1-6.9); NEUTROPHILS % 69.6 % (38.7-80.0); PLATELET COUNT 157 x10e3/uL (140-360); RED BLOOD COUNT 3.55 x10e6/uL (4.3-5.7); RED CELL DISTRIBUTION WIDTH 17.3 % (11.7-14.4)
[2019-01-14 09:19] LABS: ANION GAP 12.3 mmol/L (8-16); BLOOD UREA NITROGEN 29 mg/dL (7-26); BUN/CREATININE RATIO 35 (6-25); CALCIUM 8.6 mg/dL (8.4-10.2); CARBON DIOXIDE 26 mmol/L (22-29); CHLORIDE 97 mmol/L (98-107); CREATININE, SERUM 0.82 mg/dL (0.72-1.25); EST GLOMERULAR FILTRATION RATE > 60 ML/MIN (60-); GLUCOSE 114 mg/dL (74-118); POTASSIUM 3.3 mmol/L (3.5-5.1); SODIUM 132 mmol/L (136-145)
[2019-01-14 09:45] VITALS: BP 112/66
[2019-01-14] MEDS: MINOCYCLINE HCL 50 MG CAP PO SCH (09:45)
[2019-01-14] MEDS: SPIRONOLACTONE 25 MG TAB PO SCH ×2 (09:45→12:00)
[2019-01-14] MEDS: FLUOCINONIDE 0.05% 1 EA/15 GM TUBE TOP SCH (09:45)
[2019-01-14] MEDS: LISINOPRIL 2.5 MG TAB PO SCH (09:45)
[2019-01-14] MEDS: METOPROLOL SUCCINATE 25 MG TAB XL PO SCH (09:45)
[2019-01-14] MEDS: FUROSEMIDE 40 MG TAB PO SCH ×2 (09:45→12:00)
--- NOTE | 2019-01-14 09:45 | NUR ---
WOUND CARE PER ORDERED
[2019-01-14 12:04] VITALS: BP 111/68
[2019-01-14] MEDS ORDERED: RIVAROXABAN 15 MG TABLET PO SCH (17:00)
[2019-01-14] MEDS ORDERED: RIVAROXABAN 20 MG TABLET PO SCH (17:00)
--- NOTE | 2019-02-11 18:51 | Operative Report ---
DATE OF PROCEDURE: 01/07/2019 SURGEON: Ina Thompson MD PREPROCEDURAL DIAGNOSES: 1. Nonischemic cardiomyopathy, ejection fraction of 25% to 30%. 2. Left bundle-branch block, QRS duration of 150 milliseconds. 3. Acute on chronic systolic and diastolic congestive heart failure, NYHA functional class III. 4. Paroxysmal atrial fibrillation. POSTPROCEDURAL DIAGNOSES: 1. Nonischemic cardiomyopathy, ejection fraction of 25% to 30%. 2. Left bundle-branch block, QRS duration of 150 milliseconds. 3. Acute on chronic systolic and diastolic congestive heart failure, NYHA functional class III. 4. Paroxysmal atrial fibrillation. PROCEDURES PERFORMED: 1. Left subclavian venogram. 2. Coronary sinus venogram. 3. [employer] biventricular implantable cardioverter-defibrillator implant in the left pectoral region. PROCEDURE IN DETAIL: Mr. Park was brought to the collaborative physician here at [facility] in the fasting and un-sedated state. The left pectoral region was prepped and draped in a sterile manner. The pocket was formed in the left pectoral region with a combination of electrocautery, blunt, and sharp dissection. Access to the axillary vein was made through the pocket and 3 guidewires placed in this vein with tips in the IVC. A 9-Cypriot sheath was placed over the first guidewire through which [employer] 4- Site single coil ICD lead, model #0292, serial #[id number] was implanted in the right ventricular apex without complications. Adequate pacing and sensing parameters were observed and the sheath was peeled away and lead secured to the underlying fascia with 0- silk. A 9.5-Cypriot sheath was then placed over the second guidewire through which an LV guiding sheath with an AL2 catheter and 0.035 Wholey wire was used to cannulate the coronary sinus. A CS venogram was then performed with a 6-Cypriot balloon tip catheter lateral branch was visualized. An Acuity spiral long quadripolar lead, model #4677, serial #[id number], was implanted into this branch without complications over an 0.014 guidewire. Adequate pacing and sensing parameters were observed and the sheath was peeled away and lead secured to the underlying fascia with 0-silk. A 6-Cypriot sheath was then placed over the remaining guidewire through which Ingevity MRI active pacing lead, model #7740, serial #[id number], was implanted in the right atrial appendage without complications. Adequate pacing and sensing parameters were observed and the sheath was peeled away and lead secured to the underlying fascia with 0- silk. The pocket was irrigated with antibiotic containing normal saline and the leads hooked to a [employer] pacemaker generator model #G158, serial #[id number]. The generator leads were then placed in the pocket and secured to the underlying fascia with 0-silk. Pocket was closed in 3 layers with 2-0 Vicryl for the deeper subcutaneous layers and 4-0 Vicryl for the skin. Dermabond was placed for additional skin approximation. DEVICE DATA: Right ventricular lead has R waves of 5.2 millivolts with threshold of 1 volt and pulse width of 0.5 milliseconds and pacing impedance of 747 ohms. Shock impedance was 50 ohms. The right atrial lead has P waves of 1.6 millivolts and threshold of 2 volts and pulse width of 579 ohms. Left ventricular lead has a threshold of 1.5 volts with pulse width of 0.5 milliseconds and pacing impedance of 938 ohms. CONCLUSION: 1. Successful implantation of scientific biventricular ICD in the left pectoral region. 2. No complications. MD RAN Smith/KYLE /[id number]
== END 2019-01-14 15:55 | DRG 226 ==
LOC: ER 14:36 → ERHOLD 17:28 → MED/SURG3 22:00 → MED/SURG 01-07 12:18 → ICU 01-07 13:57 → MED/SURG 01-08 10:14
PROVIDERS: ADMIT Internal Medicine; ATTEND Internal Medicine
PROC: B5171ZZ Fluoroscopy of Left Subclavian Vein using Low Osmolar Contrast (ICD-10-PCS; principal; 2019-01-07)
PROC: 0JH609Z Insertion of Cardiac Resynchronization Defibrillator Pulse Generator into Chest Subcutaneous Tissue and Fascia, Open Approach (ICD-10-PCS; 2019-01-07)
PROC: 02HK3KZ Insertion of Defibrillator Lead into Right Ventricle, Percutaneous Approach (ICD-10-PCS; 2019-01-07)
PROC: 02H63KZ Insertion of Defibrillator Lead into Right Atrium, Percutaneous Approach (ICD-10-PCS; 2019-01-07)
PROC: B51V1ZZ Fluoroscopy of Other Veins using Low Osmolar Contrast (ICD-10-PCS; 2019-01-07)
DX: I11.0 Hypertensive heart disease with heart failure (principal); J96.01 Acute respiratory failure with hypoxia; J69.0 Pneumonitis due to inhalation of food and vomit; L03.116 Cellulitis of left lower limb; L03.115 Cellulitis of right lower limb; L97.819 Non-pressure chronic ulcer of other part of right lower leg with unspecified severity; L97.829 Non-pressure chronic ulcer of other part of left lower leg with unspecified severity; J44.9 Chronic obstructive pulmonary disease, unspecified; Z86.19 Personal history of other infectious and parasitic diseases; R56.9 Unspecified convulsions; F17.210 Nicotine dependence, cigarettes, uncomplicated; I83.018 Varicose veins of right lower extremity with ulcer other part of lower leg; I83.028 Varicose veins of left lower extremity with ulcer other part of lower leg; R23.3 Spontaneous ecchymoses; D64.9 Anemia, unspecified; Z86.718 Personal history of other venous thrombosis and embolism; E78.5 Hyperlipidemia, unspecified; T40.4X5A Adverse effect of other synthetic narcotics, initial encounter; T42.4X5A Adverse effect of benzodiazepines, initial encounter; Y92.234 Operating room of hospital as the place of occurrence of the external cause; I44.7 Left bundle-branch block, unspecified; I48.0 Paroxysmal atrial fibrillation; I50.43 Acute on chronic combined systolic (congestive) and diastolic (congestive) heart failure
CPT/HCPCS: 33225; 33249; 36415; 71045; 71046; 80048; 80053; 82550; 82553; 82805; 82948; 83880; 84132; 84484; 85025; 85610; 85730; 93005; 93306; 93970; 94640; 94660; 97139; 99284; C1777; C1882; C1887; C1898; C1900; J0690; J1650; J1940; J2001; J2250; J2310; J2543; J3370; J7030; J7040; J7050